=== PATIENT | female | born 1940 | race Caucasian/White ===

== ENCOUNTER 2020-08-26 08:11 | Outpatient (REF) | payer MEDICARE, SELFPAY ==
[2020-08-26 10:19] LABS: Hematocrit 42.7 % (37-47); Hemoglobin 13.4 g/dl (12.0-16.0); Mean Corpuscular HGB Conc 31.4 g/dl (31.0-35.0); Mean Corpuscular Volume 86.1 fL (80-98); Mean Platelet Volume 11.2 fL (9.4-12.3); Platelet Count 240 X10*3/uL (160-400); Red Blood Count 4.96 X10*6/uL (4.20-5.50); Red Cell Distribution Width 13.4 % (11.0-16.0); White Blood Count 9.6 X10*3/uL (4.8-10.8)
[2020-08-26 11:18] LABS: Alanine Aminotransferase 29 U/L (0-31); Albumin Level 3.6 g/dL (3.5-5.0); Alkaline Phosphatase 97 U/L (39-117); Anion Gap 13 (12-20); Aspartate Amino Transferase 25 U/L (5-31); Bilirubin Direct 0.3 mg/dL (0.0-0.5); Bilirubin Total 0.6 mg/dL (0.0-1.0); Blood Urea Nitrogen 23 mg/dL (9-16); Calcium 8.8 mg/dL (8.4-10.2); Carbon Dioxide 28 mmol/L (22-29); Chloride 104 mmol/L (96-108); Cholesterol 120 mg/dL; Estimated Glomerular Filt Rate > 60; Glucose Fasting 123 mg/dL (60-99); HDL Cholesterol 41 mg/dL; LDL Cholesterol Calculated 63 mg/dl; Potassium 4.6 mmol/l (3.3-5.1); Sodium 140 mmol/L (135-145); Total Protein 7.5 g/dL (6.5-8.0); Triglycerides 82 mg/dL
== END 2020-08-26 08:12 | disposition home or self-care (01) ==
LOC: HO.10HDL 08:11
DX: I10 Essential (primary) hypertension (principal); E78.5 Hyperlipidemia, unspecified; E55.9 Vitamin D deficiency, unspecified
CPT/HCPCS: 36415; 80053; 80061; 80076; 82248; 82306; 85027

== ENCOUNTER 2021-07-05 08:10 | Outpatient (REF) | payer MEDICARE, SELFPAY ==
[2021-07-05 09:12] LABS: MANUAL DIFF FLAG NO
[2021-07-05 09:16] LABS: Basophils Absolute Auto 0.1 X10*3/uL (0.0-0.2); Basophils Percent Auto 0.5 % (0-2); Eosinophils Absolute Auto 0.6 X10*3/uL (0.0-0.4); Eosinophils Percent Auto 5.6 % (0-4); Hematocrit 43.7 % (37-47); Hemoglobin 13.6 g/dl (12.0-16.0); Imm Gran Abs Auto 0.03 X10*3/uL (0.00-0.03); Imm Gran Pct Auto 0.3 % (0.0-0.4); Lymphocytes Absolute Auto 2.4 X10*3/uL (1.2-4.9); Lymphocytes Percent Auto 23.9 % (20-40); Mean Corpuscular HGB Conc 31.1 g/dl (31.0-35.0); Mean Corpuscular Hemoglobin 26.2 pg (27.0-33.0); Monocytes Percent Auto 9.5 % (2-11); Neutrophils Absolute Auto 6.1 X10*3/uL (2.0-8.3); Neutrophils Percent Auto 60.2 % (45-73); Platelet Count 264 X10*3/uL (160-400); White Blood Count 10.1 X10*3/uL (4.8-10.8)
[2021-07-05 09:36] LABS: Alanine Aminotransferase 26 U/L (0-31); Albumin Level 3.5 g/dL (3.5-5.0); Alkaline Phosphatase 106 U/L (39-117); Anion Gap 12 (12-20); Aspartate Amino Transferase 21 U/L (5-31); Bilirubin Total 0.8 mg/dL (0.0-1.0); Blood Urea Nitrogen 18 mg/dL (9-16); Calcium 9.3 mg/dL (8.4-10.2); Carbon Dioxide 27 mmol/L (22-29); Chloride 107 mmol/L (96-108); Cholesterol 132 mg/dL; Estimated Glomerular Filt Rate > 60; Glucose Fasting 135 mg/dL (60-99); HDL Cholesterol 42 mg/dL; LDL Cholesterol Calculated 76 mg/dl; Potassium 4.7 mmol/L (3.3-5.1); Sodium 141 mmol/L (135-145); Total Protein 7.4 g/dL (6.5-8.0); Triglycerides 70 mg/dL
[2021-07-05 09:57] LABS: Thyroid Stimulating Hormone 2.98 uIU/mL (0.32-4.0)
== END 2021-07-05 08:11 | disposition home or self-care (01) ==
LOC: HO.LAB 08:10
PROVIDERS: PCP Internal Medicine; Visit Provider Internal Medicine
DX: Z00.00 Encounter for general adult medical examination without abnormal findings (principal); E11.9 Type 2 diabetes mellitus without complications; E03.9 Hypothyroidism, unspecified
CPT/HCPCS: 36415; 80053; 80061; 84443; 85025

== ENCOUNTER 2022-07-11 09:33 | Outpatient (REF) | payer MEDICARE, SELFPAY ==
[2022-07-11 10:49] LABS: MANUAL DIFF FLAG NO
[2022-07-11 10:55] LABS: Basophils Absolute Auto 0.1 X10*3/uL (0.0-0.2); Basophils Percent Auto 0.7 % (0-2); Eosinophils Absolute Auto 0.6 X10*3/uL (0.0-0.4); Eosinophils Percent Auto 4.6 % (0-4); Hematocrit 44.5 % (37.0-47.0); Hemoglobin 13.8 g/dl (12.0-16.0); Imm Gran Abs Auto 0.06 X10*3/uL (0.00-0.03); Imm Gran Pct Auto 0.5 % (0.0-0.4); Lymphocytes Absolute Auto 2.7 X10*3/uL (1.2-4.9); Lymphocytes Percent Auto 21.5 % (20-40); Mean Corpuscular Hemoglobin 26.4 pg (27.0-33.0); Mean Corpuscular Volume 85.1 fL (80.0-98.0); Mean Platelet Volume 11.2 fL (9.4-12.3); Monocytes Absolute Auto 1.4 X10*3/uL (0.1-1.2); Neutrophils Absolute Auto 7.6 x10*3/uL (2.0-8.3); Neutrophils Percent Auto 61.7 % (45-73); Platelet Count 240 X10*3/uL (160-400); Red Blood Count 5.23 X10*6/uL (4.20-5.50); Red Cell Distribution Width 14.8 % (11.0-16.0); White Blood Count 12.3 X10*3/uL (4.8-10.8)
[2022-07-11 11:06] LABS: Alanine Aminotransferase 24 U/L (0-31); Albumin Level 3.7 g/dL (3.5-5.0); Alkaline Phosphatase 103 U/L (39-117); Anion Gap 18 (12-20); Aspartate Amino Transferase 26 U/L (5-31); Blood Urea Nitrogen 23 mg/dL (9-16); Calcium 9.1 mg/dL (8.4-10.2); Carbon Dioxide 24 mmol/L (22-29); Chloride 103 mmol/L (96-108); Cholesterol 124 mg/dL; Estimated Glomerular Filt Rate > 60; Glucose Fasting 160 mg/dL (60-99); HDL Cholesterol 38 mg/dL; LDL Cholesterol Calculated 65 mg/dl; Potassium 4.5 mmol/L (3.3-5.1); Sodium 140 mmol/L (135-145); Total Protein 7.7 g/dL (6.5-8.0); Triglycerides 106 mg/dL
[2022-07-11 11:29] LABS: Thyroid Stimulating Hormone 2.37 uIU/mL (0.32-4.0)
== END 2022-07-11 09:34 | disposition home or self-care (01) ==
LOC: HO.10HDL 09:33
PROVIDERS: Visit Provider Internal Medicine
DX: Z13.0 Encounter for screening for diseases of the blood and blood-forming organs and certain disorders involving the immune mechanism (principal); E78.5 Hyperlipidemia, unspecified; I10 Essential (primary) hypertension; E03.9 Hypothyroidism, unspecified
CPT/HCPCS: 36415; 80053; 80061; 84443; 85025

== ENCOUNTER → 2022-07-12 12:16 | Outpatient (REF) | payer MEDICARE, SELFPAY ==
--- NOTE | 2022-07-12 12:29 | ECG_ITS ---
Test Reason : z13.9 Blood Pressure : / mmHG Vent. Rate : 070 BPM Atrial Rate : 070 BPM P-R Int : 288 ms QRS Dur : 118 ms QT Int : 450 ms P-R-T Axes : 000 -39 021 degrees QTc Int : 486 ms Sinus rhythm with 1st degree A-V block Left axis deviation Incomplete right bundle branch block Abnormal ECG No previous ECGs available Referred By: Brian Pisano Electronically Signed By:LORENZO COWAN
== END ==
LOC: HO.CARD 12:16
PROVIDERS: PCP Internal Medicine; Visit Provider Internal Medicine
DX: R94.31 Abnormal electrocardiogram [ECG] [EKG] (principal)
CPT/HCPCS: 93005

== ENCOUNTER 2022-11-15 14:32 | Outpatient (REF) | payer MEDICARE, SELFPAY ==
--- NOTE | ~2022-11-15 | XR_ITS ---
EXAMINATION: XR chest 2V CLINICAL INFORMATION: Reason for Exam R07.9 - Chest pain, unspecified COMPARISON: Chest radiograph 11/04/2019 TECHNIQUE: 2 views of the chest FINDINGS: Background of increased reticular opacities which may reflect a degree of fibrosis or senescent change. No pneumothorax or pleural effusion. Borderline enlarged cardiac silhouette and is increased from prior. Upper abdominal surgical clips. XR/XR chest 2V IMPRESSION: * Background of increased reticular opacities which may reflect a degree of fibrosis or senescent change. * Cardiac silhouette is borderline enlarged, increased from prior.
== END 2022-11-15 14:33 | disposition home or self-care (01) ==
LOC: HO.XRAY 14:32
PROVIDERS: PCP Internal Medicine; Visit Provider Internal Medicine
DX: R07.9 Chest pain, unspecified (principal)
CPT/HCPCS: 71046

== ENCOUNTER → 2022-11-28 12:33 | Outpatient (BNVA) | payer MEDICARE, SELFPAY | PROVIDERS: PCP Internal Medicine; Referring Provider Internal Medicine; Visit Provider Internal Medicine Cardiovascular Disease | DX: R06.02 Shortness of breath (principal) | CPT/HCPCS: 99202 ==

== ENCOUNTER → 2022-12-06 13:23 | Outpatient (REF) | payer MEDICARE, SELFPAY ==
--- NOTE | 2022-12-06 13:26 | CA_ITS ---
Transthoracic Echocardiogram Patient (Last, First, Middle): Rosie Guerrero S Gender: Female Date of : 1940 Age: 82 Procedure Date: 12/06/2022 Procedure Type: Transthoracic Echocardiogram Location: OP Height: 157.48 cm Weight: 77.11 kg BSA: 1.78 m2 Heart Rate: 99 bpm BP: 160 / 90 mmHg Bottle Label Inspector: BOLA Referring MD: Arturo Tucker MD Symptoms: R06.02 - Shortness of breath Study Quality: Fair/Contrast ECG Rhythm: Atrial Fibrillation Conclusions: - The left ventricular systolic function is normal. The calculated ejection fraction is 63% by biplane method. - There is mild calcification of the aortic valve. - There is moderate posterior mitral annular calcification. Findings Procedure Information Contrast agent, definity, is being given per protocol without apparent complications. Left Ventricle Normal left ventricular cavity size. There is mildly increased left ventricular wall thickness. The left ventricular systolic function is normal. The calculated ejection fraction is 63% by biplane method. There is no evidence of regional wall motion abnormalities. Diastolic function is indeterminate on the basis of available data. There is severe septal asymmetric hypertrophy. Right Ventricle Normal right ventricular cavity size. There is mild to moderately decreased right ventricular systolic function. Atria Both atria are normal in size. Aortic Valve There is a normal trileaflet aortic valve. There is mild calcification of the aortic valve. There is no aortic valve stenosis. There is no aortic valve regurgitation. Mitral Valve There is moderate posterior mitral annular calcification. There is trace mitral valve regurgitation. There is no mitral valve stenosis. Pulmonic Valve There is trace pulmonic valve regurgitation. Tricuspid Valve Normal tricuspid valve structure. There is mild tricuspid valve regurgitation. Mild pulmonary hypertension is present. Great Vessels The asc aorta is normal in size. Small plaque is seen in the sino tubular ridge. Venous The inferior vena cava is normal in size and collapses less than 50% with inspiration. Pericardium/Pleural There is no evidence of pericardial effusion. Prior Study Comparison No significant change compared to prior study dated: 10/01/2003. Measurements 2D Linear Measurements IVSd: 1.39 0.6-0.9/0.6-1.0 cm LVIDd: 3.91 3.9-5.3/4.2-5.9 cm LVIDd Index: 2.20 2.4-3.2/2.2-3.1 cm/m2 LVIDs: 2.24 2.0-3.6 cm LVPWd: 1.18 0.7-1.1 cm Ao Root: 2.90 2.1-3.5 cm LA Diam: 4.10 2.7-3.8/3.0-4.0 cm LAIDs Index: 2.30 1.5-2.3 cm/m2 LV Mass: 220.81 67-162/88-224 g LV Mass Index: 124.05 43-95/49-115 g/m2 LVOT Diam: 1.90 3.0+(-)1.3 cm 2D Systolic Function EF 4C: 55.30 >55% EF 2C: 71.50 >55% EF BiP: 63.20 >55% Mitral Valve MV Pk E: 1.39 MV Decel Time: 106.00 E'Lateral: 8.45 E'Medial: 4.04 E/E' Med: 34.40 E/E' Lat: 16.40 PHT: 31.00 MVA PHT: 7.10 Decel Canadian: 13.10 Aortic Valve AoV Pk Woodrow: 1.18 AoV Mn Woodrow: 0.86 AoV VTI: 0.26 AoV Pk Grad: 6.00 Aov Mn Grad: 3.00 OSMAN Cont.VTI: 2.02 LVOT LVOT Pk Woodrow: 0.84 LVOT Mn Woodrow: 0.63 LVOT VTI: 0.19 LVOT Pk Grad: 3.00 LVOT Mn Grad: 2.00 LVOT Diam: 1.90 LVOT Area: 2.84 Diastolic Function MV Pk E: 1.39 E'Medial: 4.04 E/E' Med: 34.40 E' Laterial: 8.45 E/E' Lat: 16.40 Right Ventricle TAPSE (mm): 12.60 TVS' Woodrow: 7.98 Tricuspid Valve TR Pk Woodrow: 2.85 TR Pk Grad: 32.00 RA Press: 8.00 RVSP: 40.00 Great Vessels Aorta Ao Root-2D: 2.90 2.0-3.7 cm Sinus of Valsalva: 2.90 2.0-3.5 cm Ao Asc: 3.20 2.1-3.4 cm Pulmonary Valve PV Pk Woodrow: 0.98 Peak PV Grad: 4.00 Updated in Other Vendor System with Status of Final Harpreet Pichardo MD electronically signed on 12/08/2022 1:18:02 PM with status of Final
== END ==
LOC: HO.CARD 13:23
PROVIDERS: PCP Internal Medicine; Visit Provider Internal Medicine Cardiovascular Disease
DX: R06.02 Shortness of breath (principal)
CPT/HCPCS: 93306; Q9957

== ENCOUNTER → 2022-12-18 09:31 | Outpatient (REF) | payer MEDICARE, SELFPAY ==
--- NOTE | ~2022-12-18 | NM_ITS ---
Myocardial perfusion study Indication: Chest pain to evaluate for ischemia Technique: The patient was brought in for a Lexiscan perfusion study on 12/18/2022. Patient performed low-level exercise and was injected 0.4 mg of Lexiscan intravenously. Within a minute of injection, 30 mCi of sestamibi was given intravenously. Images were obtained using the SPECT gamma camera interlaced with the gating device. Images were obtained in supine position. Resting perfusion study was performed on 12/19/2022. Patient was administered 30 mCi of sestamibi intravenously at rest. Images were then obtained in supine position. Images obtained with and without CT attenuation. Total DLP 103 mGy-cm. Images were processed with the software and compared side to side in short axis, horizontal long axis and vertical long axis views. Findings: The stress perfusion study showed non attenuated images show normal uptake of radiotracer in all segments of LV myocardium with minimal thinning of the basal lateral wall of the LV myocardium. Attenuation corrected images show normal uptake of radiotracer in all segments of the basal lateral wall.. The gated study shows normal LV systolic function with visually estimated LVEF of greater than 55%. LV cavity is normal size. The gated study shows normal systolic wall thickening and contraction of segments. Resting study shows non attenuated images show mild thinning of the distal anterior and moderately reduced uptake in the lateral wall of. Gating at rest reveals normal systolic wall motion with ejection fraction at 65%. The findings are consistent with likely normal myocardial perfusion. NM/NM cardiolite stress test Impression: 1. Myocardial perfusion imaging study shows likely normal perfusion 2. Gated LVEF is 65% 3. Transient ischemic dilatation not present EKG is nondiagnostic for ischemia
--- NOTE | 2022-12-18 09:39 | CA_ITS ---
Acquisition Time: 2022-12-18 10:01:36 Total Exercise Time: 00:02:00 Test Indications: Dyspnea CP Medications: ATENOLOL ATORVASTATIN LISINOPRIL Protocol: LEXISCAN Max HR: 100 BPM 72% of Pred: 137 BPM Max BP: 130/082 mmHG Max Work Load: 1.0 METS Pharmacological stress test with Lexiscan injection, while sitting and kicking her legs, with mild sob, no chest discomfort, without arrythmia other than baseline atrial fibrillation ( which is new finding), with normotensive response to injection, with nondiagnostic EKG for ischemia. In recovery she was treated with Aminophylline 75mg IVP to reverse Lexiscan. Nuclear images pending. Test reviewed with Dr Tucker. Referred By: Arturo Tucker Overread By: ESTEFANI BONILLA
--- NOTE | 2022-12-18 12:16 | ECG_ITS ---
Test Reason : ?AFIB Blood Pressure : / mmHG Vent. Rate : 079 BPM Atrial Rate : 000 BPM P-R Int : 000 ms QRS Dur : 118 ms QT Int : 448 ms P-R-T Axes : 000 -33 -30 degrees QTc Int : 513 ms Atrial fibrillation Left axis deviation Incomplete right bundle branch block T wave abnormality, consider anterior ischemia Prolonged QT Abnormal ECG When compared with ECG of 12-JUL-2022 12:29, rhthm change from flutter to fibrillation T wave inversion more evident in Inferior leads T wave inversion now evident in Anterior leads Referred By: Caitlin Huber Electronically Signed By:ADAMA BHANDARI
== END ==
LOC: HO.CARD 09:31
PROVIDERS: Visit Provider Internal Medicine Cardiovascular Disease
DX: R07.9 Chest pain, unspecified (principal); R06.02 Shortness of breath; I48.91 Unspecified atrial fibrillation
CPT/HCPCS: 78452; 93005; 93017; A9500; J2785

== ENCOUNTER → 2022-12-22 13:31 | Outpatient (BNVA) | payer MEDICARE, SELFPAY | PROVIDERS: PCP Internal Medicine; Visit Provider Nurse Practitioner Family | DX: I48.91 Unspecified atrial fibrillation (principal); I10 Essential (primary) hypertension; R06.02 Shortness of breath | CPT/HCPCS: 93005; 99212 ==

== ENCOUNTER → 2022-12-29 10:37 | Outpatient (REF) | payer MEDICARE, SELFPAY ==
--- NOTE | 2022-12-29 10:41 | HM_ITS ---
Conclusion: 1. Patient was monitored for total period of 2 days and 23 hours 2. Baseline rhythm is atrial fibrillation with average heart of 67 beats per minute with good rate control 3. No significant pauses greater than 3 seconds noted 4. Very rare PVCs noted 5. No patient reported events MTDD
[2022-12-29 10:50] LABS: MANUAL DIFF FLAG NO
[2022-12-29 11:14] LABS: Basophils Absolute Auto 0.1 X10*3/uL (0.0-0.2); Basophils Percent Auto 0.7 % (0-2); Eosinophils Absolute Auto 0.3 X10*3/uL (0.0-0.4); Eosinophils Percent Auto 2.9 % (0-4); Hematocrit 49.4 % (37.0-47.0); Hemoglobin 15.2 g/dl (12.0-16.0); Imm Gran Abs Auto 0.05 X10*3/uL (0.00-0.03); Imm Gran Pct Auto 0.5 % (0.0-0.4); Lymphocytes Absolute Auto 1.6 X10*3/uL (1.2-4.9); Lymphocytes Percent Auto 16.2 % (20-40); Mean Corpuscular HGB Conc 30.8 g/dl (31.0-35.0); Mean Corpuscular Hemoglobin 26.8 pg (27.0-33.0); Mean Corpuscular Volume 87.1 fL (80.0-98.0); Mean Platelet Volume 11.4 fL (9.4-12.3); Monocytes Percent Auto 9.9 % (2-11); Neutrophils Percent Auto 69.8 % (45-73); Platelet Count 206 X10*3/uL (160-400); Red Blood Count 5.67 X10*6/uL (4.20-5.50); Red Cell Distribution Width 14.9 % (11.0-16.0)
[2022-12-29 11:59] LABS: Anion Gap 16 (12-20); Blood Urea Nitrogen 31 mg/dL (9-16); Calcium 9.3 mg/dL (8.4-10.2); Carbon Dioxide 23 mmol/L (22-29); Chloride 105 mmol/L (96-108); Estimated Glomerular Filt Rate 48; Glucose Random 211 mg/dL (60-115); Potassium 4.8 mmol/L (3.3-5.1); Sodium 139 mmol/L (135-145)
== END ==
LOC: HO.CARD 10:37
PROVIDERS: Visit Provider Nurse Practitioner Family
DX: I48.91 Unspecified atrial fibrillation (principal)
CPT/HCPCS: 36415; 80048; 85025; 93242

== ENCOUNTER 2023-01-10 11:54 | Outpatient (REF) | payer MEDICARE, SELFPAY ==
[2023-01-10 12:12] LABS: MANUAL DIFF FLAG NO
[2023-01-10 12:47] LABS: Basophils Absolute Auto 0.1 X10*3/uL (0.0-0.2); Basophils Percent Auto 0.5 % (0-2); Eosinophils Absolute Auto 0.3 X10*3/uL (0.0-0.4); Eosinophils Percent Auto 3.4 % (0-4); Hematocrit 46.7 % (37.0-47.0); Hemoglobin 14.8 g/dl (12.0-16.0); Imm Gran Abs Auto 0.03 X10*3/uL (0.00-0.03); Imm Gran Pct Auto 0.3 % (0.0-0.4); Lymphocytes Absolute Auto 1.4 X10*3/uL (1.2-4.9); Mean Corpuscular HGB Conc 31.7 g/dl (31.0-35.0); Mean Corpuscular Hemoglobin 26.8 pg (27.0-33.0); Mean Corpuscular Volume 84.6 fL (80.0-98.0); Mean Platelet Volume 11.3 fL (9.4-12.3); Monocytes Absolute Auto 0.9 X10*3/uL (0.1-1.2); Monocytes Percent Auto 8.7 % (2-11); Neutrophils Absolute Auto 7.1 x10*3/uL (2.0-8.3); Neutrophils Percent Auto 73.1 % (45-73); Platelet Count 189 X10*3/uL (160-400); Red Blood Count 5.52 X10*6/uL (4.20-5.50); Red Cell Distribution Width 14.6 % (11.0-16.0); White Blood Count 9.8 X10*3/uL (4.8-10.8)
[2023-01-10 12:58] LABS: Estimated Average Glucose 203 mg/dL; Hemoglobin A1c % 8.7 %
[2023-01-10 13:14] LABS: Alanine Aminotransferase 33 U/L (0-31); Albumin Level 3.4 g/dL (3.5-5.0); Alkaline Phosphatase 102 U/L (39-117); Anion Gap 12 (12-20); Aspartate Amino Transferase 29 U/L (5-31); Blood Urea Nitrogen 25 mg/dL (9-16); Calcium 9.2 mg/dL (8.4-10.2); Carbon Dioxide 25 mmol/L (22-29); Chloride 106 mmol/L (96-108); Cholesterol 117 mg/dL; Estimated Glomerular Filt Rate 59; Glucose Fasting 180 mg/dL (60-99); HDL Cholesterol 40 mg/dL; LDL Cholesterol Calculated 64 mg/dl; Potassium 4.7 mmol/L (3.3-5.1); Sodium 138 mmol/L (135-145); Total Protein 7.2 g/dL (6.5-8.0); Triglycerides 67 mg/dL
[2023-01-10 13:29] LABS: Thyroid Stimulating Hormone 2.56 uIU/mL (0.32-4.0)
== END 2023-01-10 11:55 | disposition home or self-care (01) ==
LOC: HO.LAB 11:54
PROVIDERS: PCP Internal Medicine; Visit Provider Internal Medicine
DX: Z00.00 Encounter for general adult medical examination without abnormal findings (principal); Z13.0 Encounter for screening for diseases of the blood and blood-forming organs and certain disorders involving the immune mechanism; Z13.220 Encounter for screening for lipoid disorders; R73.9 Hyperglycemia, unspecified
CPT/HCPCS: 36415; 80053; 80061; 83036; 84443; 85025

== ENCOUNTER 2023-01-12 07:46 | Outpatient (REF) | payer MEDICARE, SELFPAY ==
[2023-01-12 08:31] LABS: Glucose Fasting 162 mg/dL (60-99)
[2023-01-12 08:34] LABS: Estimated Average Glucose 203 mg/dL; Hemoglobin A1c % 8.7 %
== END 2023-01-12 07:47 | disposition home or self-care (01) ==
LOC: HO.LAB 07:46
PROVIDERS: PCP Internal Medicine; Visit Provider Internal Medicine
DX: R73.9 Hyperglycemia, unspecified (principal)
CPT/HCPCS: 36415; 82947; 83036

== ENCOUNTER → 2023-03-22 13:03 | Outpatient (BNVA) | payer MEDICARE, SELFPAY | PROVIDERS: PCP Internal Medicine; Referring Provider Internal Medicine; Visit Provider Internal Medicine Cardiovascular Disease | DX: I48.19 Other persistent atrial fibrillation (principal) | CPT/HCPCS: 99212 ==

== ENCOUNTER 2023-04-09 14:36 | Outpatient (REF) | payer MEDICARE, SELFPAY ==
[2023-04-09 16:12] LABS: Anion Gap 13 (12-20); Blood Urea Nitrogen 22 mg/dL (9-16); Calcium 9.8 mg/dL (8.4-10.2); Carbon Dioxide 25 mmol/L (22-29); Chloride 106 mmol/L (96-108); Estimated Glomerular Filt Rate 53; Glucose Random 174 mg/dL (60-115); Potassium 4.8 mmol/L (3.3-5.1); Sodium 139 mmol/L (135-145)
[2023-04-09 16:21] LABS: B Type Natriuretic Peptide 1234 pg/mL (<100)
== END 2023-04-09 14:37 | disposition home or self-care (01) ==
LOC: HO.LAB 14:36
PROVIDERS: Internal Medicine Cardiovascular Disease; PCP Internal Medicine; Visit Provider Internal Medicine
DX: I10 Essential (primary) hypertension (principal); R06.02 Shortness of breath; I48.19 Other persistent atrial fibrillation
CPT/HCPCS: 36415; 80048; 83880

== ENCOUNTER 2023-04-11 11:52 | Day surgery (SDC) | payer MEDICARE, SELFPAY ==
--- NOTE | 2023-04-10 11:49 | HO.ANESPROP2 ---
Documented by User: Bethany Molina NP 04/10/23 11:51 HPI - Anesthesia Eval Consult details Narrative: 82YO F for Cardioversion Eliquis for afib PMFSH Active Problems Active Problems: All Active Problems (Updated 03/22/23 @ 13:42 by Arturo Tucker MD) Persistent atrial fibrillation (Acute) SOB (shortness of breath) on exertion (Acute) Chest pain (Acute) Hyperlipidemia (Acute) Obesity (Acute) Hypertension (Acute) Past Medical History Medical History (Updated 03/22/23 @ 13:42 by Arturo Tucker MD) Hypertension New onset a-fib Obesity Family History Family History Mother No problems noted. Father No problems noted. Surgical History Surgical History (Updated 04/11/23 @ 12:27 by Maricruz Arrington RN) History of nephrectomy, left Hx of cholecystectomy Social History Social History Housing: House Alcohol intake: never Patient Tobacco Use Status: Never used Tobacco e-Cigarette/Vaping Use: Never Used Second Hand Smoke Exposure: No service: No Current occupational status: retired Cognitive needs: No Hearing needs: Yes Vision needs: No Meds Allergies Allergy/AdvReac Type Severity Reaction Status Date / Time cephalexin Allergy Intermediate Rash Verified 04/11/23 12:28 Exam Exam Date and Time: April 10, 2023 1149 Pertinent Lab Results Pertinent Lab Results: Laboratory Tests 01/10/23 04/09/23 12:11 14:58 WBC 9.8 Hgb 14.8 Hct 46.7 Plt Count 189 Sodium 139 Potassium 4.8 Chloride 106 Carbon Dioxide 25 BUN 22 H Creatinine 1.00 Narrative Narrative: NM cardiolite stress test 12/2022 Impression: ? 1.? Myocardial perfusion imaging study shows likely normal perfusion 2.? Gated LVEF is 65% 3. Transient ischemic dilatation not present ? EKG is nondiagnostic for ischemia ECHO 11/2022 Conclusions: - The left ventricular systolic function is normal.? The ? calculated ejection fraction is 63% by biplane method. ? - There is mild calcification of the aortic valve. ? - There is moderate posterior mitral annular calcification.? ? ? Assessment and Plan Assessment Anesthesia Assessment: Chart Reviewed Documented by User: Yeimi Carnes MD 04/11/23 13:02 PMFSH Past Medical History Medical History (Updated 03/22/23 @ 13:42 by Arturo Tucker MD) Hypertension New onset a-fib Obesity Family History Family History Mother No problems noted. Father No problems noted. Family history of problems with anesthesia: No Surgical History Surgical History (Updated 04/11/23 @ 12:27 by Maricruz Arrington RN) History of nephrectomy, left Hx of cholecystectomy History of Problems with Anesthesia: No Social History Social History Housing: House Alcohol intake: never Patient Tobacco Use Status: Never used Tobacco e-Cigarette/Vaping Use: Never Used Second Hand Smoke Exposure: No service: No Current occupational status: retired Cognitive needs: No Hearing needs: Yes Vision needs: No Meds Allergies Allergy/AdvReac Type Severity Reaction Status Date / Time cephalexin Allergy Intermediate Rash Verified 04/11/23 12:28 Exam Airway Mallampati Class: II TM Dist: >3cm Neck ROM: Full Denture: Upper Partial: Lower Heart: rrr Lungs: cta Assessment and Plan Assessment Anesthesia Assessment: Anesthesia Plan Discussed Final Anesthetic Review Family History of Problems with Anesthesia: No History of Problems with Anesthesia: No NPO: Yes ASA Class: III Final Preanesthetic Review: No Changes in Pt Med Stat, Meds/Allgs Chart Reviewed and Consent Obtained/Reviewed Patient Risk: Intermediate Procedure Risk: Intermediate Anesthetic Plan Anesthetic Plan: MAC: Disposition: Standard PACU
[2023-04-11] VITALS (7 sets, daily range): BP systolic 119–177; BP diastolic 46–76; PULSE 45–70; RESP 16–21; TEMP 36.2–36.4; O2SAT 94–100; BMI 30.5
--- NOTE | 2023-04-11 12:27 | MHC.SHP ---
Pre-Procedural Eval Section A Date of Service: 04/11/23 The patient is an INPATIENT: No Changes since office visit: Yes Cold of Flu in the past 2 weeks, Yes New Medical Problems, Yes Changes in Medication and Yes Patient answered all questions The History & Physical has been completed within 30 days and I have reviewed it.: Yes Section B Chief Complaint: agib Allergies: Allergies Allergy/AdvReac Type Severity Reaction Status Date / Time cephalexin Allergy Intermediate Rash Verified 04/09/23 14:10 Plan I have reviewed the history and physical and performed a pertinent physical examination on my patient. No changes have occurred unless specified. Time Spent With Patient Time: Total time managing care of this patient today ____ minutes.
[2023-04-11] MEDS: Lactated Ringers 1,000 ML 50 ML IVCONT (12:56)
--- NOTE | 2023-04-11 13:34 | ECG_ITS ---
Test Reason : post op Blood Pressure : / mmHG Vent. Rate : 047 BPM Atrial Rate : 047 BPM P-R Int : 280 ms QRS Dur : 128 ms QT Int : 572 ms P-R-T Axes : 054 -39 -08 degrees QTc Int : 506 ms Sinus bradycardia with sinus arrhythmia with 1st degree A-V block Left axis deviation Right bundle branch block T wave abnormality, consider lateral ischemia Abnormal ECG When compared with ECG of 18-DEC-2022 10:42, Sinus rhythm has replaced Atrial fibrillation Vent. rate has decreased BY 32 BPM Referred By: Arturo Tucker Electronically Signed By:Timothy Girard
--- NOTE | 2023-04-11 13:37 | HO.CARDIVERS ---
Cardioversion Procedure Note Cardioversion Date of Procedure: Today Ordering Provider: Myself Performing Provider: Myself Indication for Procedure: Persistent symptomatic atrial fibrillation with now Pre-Op Diagnosis: Same Post-Op Diagnosis: Paroxysmal atrial fibrillation Performed with Transesophageal Echo: No Consent: Verbal and Written consent was obtained from the patient before starting and after confirming oral anticoagulation use. The patient was made aware of the risk of synchronized cardioversion including benefits and alternatives Procedure: After consent obtained, cardioversion pads were attached in anteroposterior configuration and the patient was sedated by the anesthesia team. Once adequate sedation achieved, patient was delivered 200 joules of biphasic synchronized energy in anteroposterior configuration Complications: None Impression: Successful conversion to sinus rhythm Recommendations: 1. 12 lead EKG 2. Continue amiodarone 200 mg daily and oral anticoagulation therapy 3. Reduce atenolol to 25 mg daily and continue Lasix therapy 4. Follow up in the clinic after Holter monitor
== END 2023-04-11 14:52 | disposition home or self-care (01) ==
PROVIDERS: PCP Internal Medicine; Visit Provider Internal Medicine Cardiovascular Disease
PROC: 5A2204Z Restoration of Cardiac Rhythm, Single (ICD-10-PCS; principal; 2023-04-11 13:30)
DX: I48.19 Other persistent atrial fibrillation (principal); Z79.01 Long term (current) use of anticoagulants; R53.83 Other fatigue; I10 Essential (primary) hypertension; E66.9 Obesity, unspecified; Z68.31 Body mass index [BMI] 31.0-31.9, adult; Z79.899 Other long term (current) drug therapy; Z88.8 Allergy status to other drugs, medicaments and biological substances
CPT/HCPCS: 92960; 93005

== ENCOUNTER → 2023-04-18 13:03 | Outpatient (REF) | payer MEDICARE, SELFPAY ==
--- NOTE | 2023-04-18 13:06 | HM_ITS ---
Conclusion: 1. Patient was monitored for total period of 2 days and 15 hours 2. Baseline was sinus rhythm with average heart of 57 beats per minute with frequent sinus bradycardia, 75% of the time 3. No significant pauses noted 4. Occasional PACs noted without evidence of atrial fibrillation 5. No patient reported events MTDD
== END ==
LOC: HO.CARD 13:03
PROVIDERS: Visit Provider Internal Medicine Cardiovascular Disease
DX: I48.19 Other persistent atrial fibrillation (principal)
CPT/HCPCS: 93242

== ENCOUNTER → 2023-04-18 13:06 | Outpatient (BNV) | payer MEDICARE, SELFPAY | PROVIDERS: Visit Provider Internal Medicine Cardiovascular Disease | DX: R00.1 Bradycardia, unspecified (principal) | CPT/HCPCS: 93244 ==

== ENCOUNTER 2023-05-07 15:13 | Outpatient (AMB) | payer MEDICARE, SELFPAY ==
--- NOTE | 2023-05-07 15:27 | MHC.OFFVIS ---
Intake Vital Signs 05/07/23 15:28 Height 5 ft 3 in Weight 158 lb 11.725 oz BMI 28.1 BP 115/70 Blood Pressure Location Lt brachial Position Sitting Pulse 101 H Intake Visit Reasons: follow-up with ekg Intake Note: follow up with ekg Allergies cephalexin Allergy (Intermediate, Verified 05/07/23 15:34) Rash Medication List - Last Reconciled 05/07/23 by Arturo Tucker MD amiodarone 200 mg PO Q24H apixaban (Eliquis) 5 mg PO BID atorvastatin 20 mg PO DAILY cholecalciferol (vitamin D3) 50 mcg PO DAILY furosemide 40 mg PO DAILY 90 days lisinopril 40 mg PO DAILY HPI HPI Comments History of Present Illness Details Rosie comes for follow-up. She is accompanied by her daughter. Post cardioversion Holter monitor shown significant bradycardia and we had discontinue atenolol therapy. She comes today and noted to be in atrial flutter/tachycardia with 2 is to 1 conduction. However since cardioversion she is feeling better. Exertional fatigue and shortness of breath is improved. She has not had any bleeding issues since some blood notice in urination due to UTI. She has started using apixaban again for the last 7 days [facility] Medical History (Updated 05/08/23 @ 12:32 by Arturo Tucker MD) Hypertension New onset a-fib Obesity Persistent atrial fibrillation Surgical History History of nephrectomy, left Hx of cholecystectomy Family History Mother No problems noted. Father No problems noted. Social History Housing: House Alcohol intake: never Patient Tobacco Use Status: Never used Tobacco e-Cigarette/Vaping Use: Never Used Second Hand Smoke Exposure: No service: No Current occupational status: retired Cognitive needs: No Hearing needs: Yes Vision needs: No Review of Systems ENT Reports dizziness Card Denies chest pain, Denies chest pain at rest, Denies chest pain with activity, Denies rapid heart rate, Denies pedal edema, Denies edema, Denies leg edema, Denies lightheadedness, Denies palpitations, Denies dyspnea, Denies dyspnea on exertion and Denies orthopnea Resp Denies cough, Denies dyspnea and Denies dyspnea on exertion GI Denies hematochezia and Denies change in stool character Musc Denies abnormal gait, Reports limited range of motion, Reports muscle cramps, Denies muscle weakness, Denies numbness, Denies radiating pain into limb, Denies stiffness and Denies tingling Neuro Denies abnormal gait, Reports dizziness, Denies numbness and Denies tingling Endo Denies palpitations Physical Exam Vital Signs: Last Vital Signs Pulse 101 H 05/07/23 15:28 BP 115/70 05/07/23 15:28 BMI result Body Mass Index 28.1 Const General: cooperative, healthy appearing, comfortable and no acute distress Orientation/consciousness: patient oriented x3 Neck Neck: Yes normal visual inspection Resp Effort & Inspection: normal respiratory effort Auscultation: clear to auscultation bilaterally, no crackles, no rales, no rhonchi and no wheezes Cardio Jugular venous distension: no JVD Rate: tachycardic Rhythm: regular rhythm Heart sounds: S1 normal heart sound present, S2 normal heart sound present, no gallops, no murmurs and no rubs Peripheral pulses: Peripheral pulses 2+ throughout GI Inspection: Yes normal to inspection Neuro General: patient oriented x3 Extrem General: No clubbing, No cyanosis, Yes pedal edema and Yes other (Venous insufficiency with varicose veins) Psych Appearance: grossly normal Mental Status: mental status grossly normal Speech and movement: Normal speech and movement present Office Procedures EKG Details: EKG shows atrial tachycardia/atypical atrial flutter with 2 is to 1 conduction with right bundle-branch block 72865-[id number], Complete Assessment & Plan Assessment & Plan (1) Atrial flutter: Code(s): I48.92 - Unspecified atrial flutter Plan: More organized atrial rhythm with now atrial tachycardia/flutter on amiodarone therapy with improvement in symptoms with cardioversion with improved shortness of breath and fatigue. However she has developed recurrent atrial arrhythmias off atenolol therapy. Advised to restart atenolol 25 mg daily. Continue full oral anticoagulation Eliquis. She has been on it for about 6-7 days. When she is been on it for about 4 weeks, will reschedule synchronized cardioversion. Discussed with her again the need for synchronized cardioversion including risk, benefits, alternatives. 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 This was discussed with them in details. They understand and agree. For now continue amiodarone 200 mg daily along with Eliquis 5 mg b.i.d.. Continue aggressive blood pressure control. Schedule cardioversion in 3 weeks time Will follow-up after that Coding Level of Care Code Est Pt Level 4 (54437) Diagnoses Atrial flutter I48.92 CPT Codes EKG - CPT: 74417-[id number], Complete ([id number])
[2023-05-07 15:28] VITALS: BP 115/70; PULSE 101; BMI 28.1
== END 2023-05-07 15:59 | disposition home or self-care (01) ==
PROVIDERS: PCP Internal Medicine; Visit Provider Internal Medicine Cardiovascular Disease
DX: I48.92 Unspecified atrial flutter (principal)
CPT/HCPCS: 93010; 99214

== ENCOUNTER → 2023-05-07 15:13 | Outpatient (BNVA) | payer MEDICARE, SELFPAY | PROVIDERS: PCP Internal Medicine; Visit Provider Internal Medicine Cardiovascular Disease | DX: I48.92 Unspecified atrial flutter (principal); Z79.01 Long term (current) use of anticoagulants; Z51.81 Encounter for therapeutic drug level monitoring | CPT/HCPCS: 93005; 99212 ==

== ENCOUNTER 2023-05-31 08:16 | Day surgery (SDC) | payer MEDICARE, SELFPAY ==
--- NOTE | 2023-05-30 08:18 | P.CONAN_ITS ---
Documented by User: Bethany Molina NP 05/30/23 08:23 HPI - Anesthesia Eval Consult details Narrative: 82yo F for Cardioversion s/p cardioversion 03/2023 with MAC Eliquis for afib PMFSH Active Problems Active Problems: All Active Problems (Updated 05/08/23 @ 12:32 by Arturo Tucker MD) Atrial flutter (Acute) Hematuria (Acute) Hyperlipidemia (Acute) Chest pain (Acute) SOB (shortness of breath) on exertion (Acute) Obesity (Acute) Hypertension (Acute) Past Medical History Medical History (Updated 05/08/23 @ 12:32 by Arturo Tucker MD) Hypertension New onset a-fib Obesity Persistent atrial fibrillation Family History Family History Mother No problems noted. Father No problems noted. Family history of problems with anesthesia: No Surgical History Surgical History History of nephrectomy, left Hx of cholecystectomy History of Problems with Anesthesia: No Social History Social History Housing: House Alcohol intake: never Patient Tobacco Use Status: Never used Tobacco e-Cigarette/Vaping Use: Never Used Second Hand Smoke Exposure: No service: No Current occupational status: retired Cognitive needs: No Hearing needs: Yes Vision needs: No Meds Allergies Allergy/AdvReac Type Severity Reaction Status Date / Time cephalexin Allergy Intermediate Rash Verified 05/07/23 15:34 Exam Exam Date and Time: May 30, 2023 0818 Pertinent Lab Results Pertinent Lab Results: Laboratory Tests 01/10/23 04/09/23 12:11 14:58 WBC 9.8 Hgb 14.8 Hct 46.7 Plt Count 189 Sodium 139 Potassium 4.8 Chloride 106 Carbon Dioxide 25 BUN 22 H Creatinine 1.00 Narrative Narrative: EKG 05/2023 atrial tachycardia/atypical atrial flutter with 2 is to 1 conduction with right bundle-branch block Assessment and Plan Assessment Anesthesia Assessment: Chart Reviewed Final Anesthetic Review Family History of Problems with Anesthesia: No History of Problems with Anesthesia: No Documented by User: Cameron Tarango MD 05/31/23 08:13 [facility] Past Medical History Medical History (Updated 05/08/23 @ 12:32 by Arturo Tucker MD) Hypertension New onset a-fib Obesity Persistent atrial fibrillation Family History Family History Mother No problems noted. Father No problems noted. Surgical History Surgical History History of nephrectomy, left Hx of cholecystectomy Social History Social History Housing: House Alcohol intake: never Patient Tobacco Use Status: Never used Tobacco e-Cigarette/Vaping Use: Never Used Second Hand Smoke Exposure: No service: No Current occupational status: retired Cognitive needs: No Hearing needs: Yes Vision needs: No Meds Allergies Allergy/AdvReac Type Severity Reaction Status Date / Time cephalexin Allergy Intermediate Rash Verified 05/07/23 15:34 Exam Airway Mallampati Class: II TM Dist: <=3cm Heart: irreg Lungs: cta Assessment and Plan Final Anesthetic Review NPO: Yes ASA Class: III Final Preanesthetic Review: No Changes in Pt Med Stat, Meds/Allgs Chart Reviewed, Consent Obtained/Reviewed and Anes Risks/Benef Reviewed Patient Risk: Intermediate Procedure Risk: Intermediate Anesthetic Plan Anesthetic Plan: MAC: and Agree w/ Assess. and Plan
[2023-05-31] VITALS (9 sets, daily range): BP systolic 90–155; BP diastolic 27–71; PULSE 50–59; RESP 16; TEMP 36.1–36.4; O2SAT 87–100; BMI 28.1
--- NOTE | 2023-05-31 09:00 | MHC.SHP ---
Pre-Procedural Eval Section A Date of Service: 05/31/23 The patient is an INPATIENT: No Changes since office visit: Yes Patient answered all questions; No Cold of Flu in the past 2 weeks, No New Medical Problems and No Changes in Medication The History & Physical has been completed within 30 days and I have reviewed it.: Yes Section B Chief Complaint: Other persistent atrial fibrillation Allergies: Allergies Allergy/AdvReac Type Severity Reaction Status Date / Time cephalexin Allergy Intermediate Rash Verified 05/07/23 15:34 Plan I have reviewed the history and physical and performed a pertinent physical examination on my patient. No changes have occurred unless specified. Time Spent With Patient Time: Total time managing care of this patient today ____ minutes.
[2023-05-31] MEDS: Lactated Ringers 1,000 ML 100 ML IVCONT (09:34)
--- NOTE | 2023-05-31 10:18 | ECG_ITS ---
Test Reason : s/p cardioversion Blood Pressure : / mmHG Vent. Rate : 053 BPM Atrial Rate : 053 BPM P-R Int : 256 ms QRS Dur : 134 ms QT Int : 566 ms P-R-T Axes : 038 -16 -33 degrees QTc Int : 531 ms Sinus bradycardia with 1st degree A-V block Right bundle branch block T wave abnormality, consider lateral ischemia Abnormal ECG When compared with ECG of 11-APR-2023 13:40, No significant change was found Referred By: Arturo Tucker Electronically Signed By:LORENZO COWAN
--- NOTE | 2023-05-31 10:18 | HO.CARDIVERS ---
Cardioversion Procedure Note Cardioversion Date of Procedure: Today Ordering Provider: Myself Performing Provider: Myself Indication for Procedure: Persistent recurrent symptomatic atrial fibrillation Pre-Op Diagnosis: Same Post-Op Diagnosis: Normal sinus rhythm Performed with Transesophageal Echo: No History: See my office note Consent: Verbal and Written consent was obtained from the patient before starting and after confirming oral anticoagulation use and medication use. The patient was made aware of the risk of synchronized cardioversion including benefits and alternatives Procedure: After consent obtained, cardioversion pads were attached in AP configuration and the patient was sedated by the anesthesia team. Once adequate sedation achieved, patient was delivered 200 joules of biphasic synchronized energy in anteroposterior configuration. Patient successfully converted to sinus rhythm Complications: None Impression: Successful conversion to sinus rhythm Recommendations: 1. 12 lead EKG 2. Continue amiodarone as well as atenolol and oral anticoagulation use 3. Follow-up in office after Holter monitor
== END 2023-05-31 12:13 | disposition home or self-care (01) ==
PROVIDERS: PCP Internal Medicine; Visit Provider Internal Medicine Cardiovascular Disease
PROC: 5A2204Z Restoration of Cardiac Rhythm, Single (ICD-10-PCS; principal; 2023-05-31 10:00)
DX: I48.19 Other persistent atrial fibrillation (principal); I10 Essential (primary) hypertension; Z79.01 Long term (current) use of anticoagulants; Z88.1 Allergy status to other antibiotic agents; Z79.899 Other long term (current) drug therapy
CPT/HCPCS: 92960; 93005

== ENCOUNTER → 2023-05-31 08:16 | Outpatient (BNV) | payer MEDICARE, SELFPAY | PROVIDERS: PCP Internal Medicine; Visit Provider Internal Medicine Cardiovascular Disease | DX: I48.19 Other persistent atrial fibrillation (principal) | CPT/HCPCS: 92960 ==

== ENCOUNTER 2023-06-12 15:17 | Outpatient (AMB) | payer MEDICARE, SELFPAY ==
[2023-06-12 15:31] VITALS: BP 118/74; PULSE 57; BMI 28.1
--- NOTE | 2023-06-12 15:31 | A.OFFVIS_ITS ---
Intake Vital Signs 06/12/23 15:31 Height 5 ft 3 in Weight 158 lb 11.725 oz BMI 28.1 BP 118/74 Blood Pressure Location Lt brachial Position Sitting Pulse 57 Intake Visit Reasons: 2 wk fu after cardioversion Intake Note: 2 week follow-up after Cardioversion with ekg Allergies cephalexin Allergy (Intermediate, Verified 05/07/23 15:34) Rash Medication List - Last Reconciled 06/12/23 by Arturo Tucker MD amiodarone 200 mg PO Q24H apixaban (Eliquis) 5 mg PO BID atenolol 25 mg PO DAILY atorvastatin 20 mg PO DAILY cholecalciferol (vitamin D3) 50 mcg PO DAILY furosemide 40 mg PO DAILY 90 days lisinopril 40 mg PO DAILY HPI HPI Comments History of Present Illness Details Rosie comes for follow-up. Since the 2nd cardioversion she has been doing well. She is taking all medications. She notices remarkable improvement in her exercise capacity. She has improved energy as well as improved functionality. She is quite happy. She denies any orthopnea, PND. No bleeding issues or neurologic events. Denies any lightheadedness, syncope. [facility] Medical History (Updated 06/12/23 @ 16:02 by Arturo Tucker MD) Atrial flutter Hypertension New onset a-fib Obesity Paroxysmal atrial fibrillation Persistent atrial fibrillation Surgical History History of nephrectomy, left Hx of cholecystectomy Family History Mother No problems noted. Father No problems noted. Social History Housing: House Alcohol intake: never Patient Tobacco Use Status: Never used Tobacco e-Cigarette/Vaping Use: Never Used Second Hand Smoke Exposure: No service: No Current occupational status: retired Cognitive needs: No Hearing needs: Yes Vision needs: No Review of Systems Const Denies chills, Denies fatigue, Denies fever(s), Denies frequent falls, Denies weakness, Denies weight gain and Denies weight loss ENT Denies dizziness Card Denies chest pain, Denies leg edema, Denies lightheadedness, Denies palpitations, Denies dyspnea, Denies dyspnea on exertion, Denies orthopnea and Denies other (loss of consciousness) Resp Denies cough, Denies dyspnea and Denies dyspnea on exertion GI Denies hematochezia and Denies change in stool character Musc Denies abnormal gait, Denies muscle weakness, Denies numbness, Denies radiating pain into limb and Denies tingling Neuro Denies abnormal gait, Denies dizziness, Denies frequent falls, Denies numbness, Denies tingling and Denies weakness Endo Denies fatigue and Denies palpitations Physical Exam Vital Signs: Last Vital Signs Pulse 57 06/12/23 15:31 BP 118/74 06/12/23 15:31 BMI result Body Mass Index 28.1 Const General: cooperative, healthy appearing, comfortable and no acute distress Orientation/consciousness: patient oriented x3 Neck Neck: Yes normal visual inspection Resp Effort & Inspection: normal respiratory effort Auscultation: clear to auscultation bilaterally, no crackles, no rales, no rhonchi and no wheezes Cardio Jugular venous distension: no JVD Rate: tachycardic Rhythm: regular rhythm Heart sounds: S1 normal heart sound present, S2 normal heart sound present, no gallops, no murmurs and no rubs Peripheral pulses: Peripheral pulses 2+ throughout GI Inspection: Yes normal to inspection Neuro General: patient oriented x3 Extrem General: No clubbing, No cyanosis, Yes pedal edema and Yes other (Venous insufficiency with varicose veins) Psych Appearance: grossly normal Mental Status: mental status grossly normal Speech and movement: Normal speech and movement present Office Procedures EKG Details: EKG shows sinus bradycardia with bifascicular block with right bundle and left anterior fascicular block with lateral T-wave changes [id number], Complete Assessment & Plan Assessment & Plan (1) Paroxysmal atrial fibrillation: Code(s): I48.0 - Paroxysmal atrial fibrillation Plan: paroxysmal atrial fibrillation status post 2nd cardioversion. Maintaining rhythm on amiodarone and atenolol. Slight bradycardia noted, patient tolerating well. However she has noticed significant improvement in her functional capacity since maintaining rhythm. Will pursue aggressively rhythm control approach. Continue amiodarone therapy. Advised to obtain a smart phone based EKG device to monitor EKG on a daily basis. Advised to call me with recurrent symptoms. Continue full oral anticoagulation, currently on Eliquis 5 mg b.i.d.. Semi annual renal function test to be pursued. Avoidance of stimulants was discussed. (2) Hypertension: Code(s): I10 - Essential (primary) hypertension Plan: Hypertension which is currently well optimized advised to monitor blood pressure at home maintain a log. Goal blood pressure less than 130/84. Low- salt diet was advised. Will follow up in the clinic in 3 months time, sooner p.r.n.. Thank you for allowing me to partake in her care Coding Level of Care Code Est Pt Level 4 (32958) Diagnoses Paroxysmal atrial fibrillation I48.0 Hypertension I10 CPT Codes EKG - CPT: 02072-[id number], Complete ([id number])
== END 2023-06-12 16:04 | disposition home or self-care (01) ==
PROVIDERS: PCP Internal Medicine; Referring Provider Internal Medicine; Visit Provider Internal Medicine Cardiovascular Disease
DX: I48.0 Paroxysmal atrial fibrillation (principal); I10 Essential (primary) hypertension
CPT/HCPCS: 93010; 99214

== ENCOUNTER → 2023-06-12 15:17 | Outpatient (BNVA) | payer MEDICARE, SELFPAY | PROVIDERS: PCP Internal Medicine; Referring Provider Internal Medicine; Visit Provider Internal Medicine Cardiovascular Disease | DX: I48.0 Paroxysmal atrial fibrillation (principal); I10 Essential (primary) hypertension; Z79.01 Long term (current) use of anticoagulants; Z79.899 Other long term (current) drug therapy; Z98.890 Other specified postprocedural states | CPT/HCPCS: 93005; 99212 ==

== ENCOUNTER 2023-07-10 14:04 | Outpatient (AMB) | payer MEDICARE, SELFPAY ==
[2023-07-10 14:05] VITALS: BP 138/66; PULSE 65; O2SAT 91; BMI 27.8
--- NOTE | 2023-07-10 14:05 | A.OFFPC_ITS ---
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 Accompanied by: Self / Same As Patient Allergies cephalexin Allergy (Intermediate, Verified 07/10/23 14:05) Rash Tobacco use date assessed: 04/09/23 Fall risk assessment: No Falls in past year Last assessed Fall Risk: 07/10/23 Dental Screening Dental Screen Date: 07/10/23 Did you have a dental visit in the last 12 months?: No Did you have a dental problem in the last 6 months where you did not have access to dental care?: No Was dental information given to patient?: Patient has dentist HPI 3mth f/u HPI Details HTN afib and hyperlip; doing well; compliant [facility] Medical History Paroxysmal atrial fibrillation Atrial flutter Persistent atrial fibrillation New onset a-fib Obesity Hypertension Surgical History History of nephrectomy, left Hx of cholecystectomy Family History Mother No problems noted. Father No problems noted. Social History Housing: House Alcohol intake: never Patient Tobacco Use Status: Never used Tobacco e-Cigarette/Vaping Use: Never Used Second Hand Smoke Exposure: No service: No Current occupational status: retired Cognitive needs: No Hearing needs: Yes Vision needs: No Questionnaire PHQ-9 Over the last 2 weeks, how often have you been bothered by any of the following problems? 1. Little interest or pleasure in doing things: not at all 2. Feeling down, depressed, or hopeless: not at all 3. Trouble falling or staying asleep, or sleeping too much: not at all 4. Feeling tired or having little energy: not at all 5. Poor appetite or overeating: not at all 6. Feeling bad about yourself - or that you are a failure or have let yourself or your family down: not at all 7. Trouble concentrating on things, such as reading the newspaper or watching television: not at all 8. Moving or speaking so slowly that other people could have noticed. Or the opposite - being so fidgety or restless that you have been moving around a lot more than usual: not at all 9. Thoughts that you would be better off or of hurting yourself in some way: not at all Total score: 0 Source: Developed by Drs. Daniel Dickerson, Catrachita Brosusard, Bigg Sotelo and colleagues, with an educational forrest from [employer]. Thrive Questionnaire Date Thrive assessed: 01/03/23 Currently or been in a relationship where the following occur: no concerns reported AUDIT C Alcohol Use Questionnaire (AUDIT-C) 1. How often do you have a drink containing alcohol?: Never Total Score: 0 Score Reviewed/Action Taken: Yes DAKOTA-7 AMB Questionnaire DAKOTA-7 Date DAKOTA - 7 assessed: 01/03/23 Source: Developed by Drs. Daniel Dickerson, Catrachita Broussard, Bigg Sotelo and colleagues, with an educational forrest from [employer]. Review of Systems Const Denies chills, Denies headache(s) and Denies weight loss ENT Denies headache(s) Card Denies chest pain, Denies syncope, Denies irregular heart rhythm and Denies dyspnea Resp Denies chest congestion, Denies cough and Denies dyspnea GI Denies abdominal pain, Denies change in stool character, Denies nausea and Denies vomiting Musc Denies deformity and Denies joint swelling Neuro Denies syncope and Denies headache(s) Physical exam (Primary Care) Vital Signs: Last Vital Signs Pulse 65 07/10/23 14:05 BP 138/66 07/10/23 14:05 Pulse Ox 91 L 07/10/23 14:05 Oxygen Delivery Method Room Air 07/10/23 14:05 BMI result Body Mass Index 27.8 Tobacco/Smoking Status: Tobacco use Status Tobacco use date assessed 04/09/23 07/10/23 14:11 Patient Tobacco Use Status Never used Tobacco 07/10/23 14:11 e-Cigarette/Vaping Use Never Used 07/10/23 14:11 PHQ-9: PHQ-9 Score PHQ-9: Total score 0 07/10/23 14:11 Thrive Assessment: Date of Thrive Assessment Date Thrive assessed 01/03/23 07/10/23 14:11 Currently or been in a relationship where the following occur: no concerns reported Const General: cooperative, no acute distress and well developed Chest Chest palpation & inspection: normal inspection of the chest Resp Effort & Inspection: normal respiratory effort Auscultation: clear to auscultation bilaterally Percussion: percussion normal Cardio Jugular venous distension: no JVD Rate: regular rate Rhythm: regular rhythm GI Inspection: Yes normal to inspection Assessment and Plan Assessment & Plan (1) Paroxysmal atrial fibrillation: Code(s): I48.0 - Paroxysmal atrial fibrillation Plan: stable; same rx (2) Hyperlipidemia: Code(s): E78.5 - Hyperlipidemia, unspecified Plan: stable; do labs (3) Hypertension: Code(s): I10 - Essential (primary) hypertension Plan: stable; same rx Orders: Orders Lipid Panel Today E78.5 - Hyperlipidemia, unspecified Complete Blood Count Auto Diff Today D64.9 - Anemia, unspecified Comprehensive [place]. Panel Fast Today N28.9 - Disorder of kidney and ureter, unspecified Thyroid Stimulating Hormone Today E03.9 - Hypothyroidism, unspecified Coding Level of Care Code Tele Est Pt Level 4 (88998) Diagnoses Paroxysmal atrial fibrillation I48.0 Hyperlipidemia E78.5 Hypertension I10
== END 2023-07-10 14:16 | disposition home or self-care (01) ==
PROVIDERS: PCP Internal Medicine; Visit Provider Internal Medicine
DX: I48.0 Paroxysmal atrial fibrillation (principal); E78.5 Hyperlipidemia, unspecified; I10 Essential (primary) hypertension
CPT/HCPCS: 99214

== ENCOUNTER 2023-08-04 07:40 | Outpatient (REF) | payer MEDICARE, SELFPAY ==
[2023-08-04 08:13] LABS: MANUAL DIFF FLAG NO
[2023-08-04 08:52] LABS: Basophils Absolute Auto 0.1 X10*3/uL (0.0-0.2); Basophils Percent Auto 0.8 % (0-2); Eosinophils Absolute Auto 0.6 X10*3/uL (0.0-0.4); Eosinophils Percent Auto 4.8 % (0-4); Hematocrit 45.7 % (37.0-47.0); Hemoglobin 14.1 g/dl (12.0-16.0); Imm Gran Abs Auto 0.11 X10*3/uL (0.00-0.03); Imm Gran Pct Auto 0.9 % (0.0-0.4); Lymphocytes Percent Auto 16.5 % (20-40); Mean Corpuscular HGB Conc 30.9 g/dl (31.0-35.0); Mean Corpuscular Hemoglobin 27.8 pg (27.0-33.0); Mean Corpuscular Volume 90.1 fL (80.0-98.0); Mean Platelet Volume 11.1 fL (9.4-12.3); Monocytes Absolute Auto 1.5 X10*3/uL (0.1-1.2); Monocytes Percent Auto 12.6 % (2-11); Neutrophils Absolute Auto 7.7 x10*3/uL (2.0-8.3); Neutrophils Percent Auto 64.4 % (45-73); Platelet Count 257 X10*3/uL (160-400); Red Blood Count 5.07 X10*6/uL (4.20-5.50); Red Cell Distribution Width 15.6 % (11.0-16.0); White Blood Count 11.9 X10*3/uL (4.8-10.8)
[2023-08-04 09:32] LABS: Alanine Aminotransferase 28 U/L (0-31); Albumin Level 3.4 g/dL (3.5-5.0); Alkaline Phosphatase 111 U/L (39-117); Anion Gap 18 (12-20); Aspartate Amino Transferase 26 U/L (5-31); Bilirubin Total 0.5 mg/dL (0.0-1.0); Blood Urea Nitrogen 53 mg/dL (9-16); Carbon Dioxide 23 mmol/L (22-29); Chloride 105 mmol/L (96-108); Cholesterol 124 mg/dL (<200); Estimated Glomerular Filt Rate 33; Glucose Fasting 178 mg/dL (60-99); HDL Cholesterol 42 mg/dL (>40); LDL Cholesterol Calculated 65 mg/dL (<100); Potassium 4.9 mmol/L (3.3-5.1); Sodium 141 mmol/L (135-145); Total Protein 7.8 g/dL (6.5-8.0); Triglycerides 85 mg/dL (<150)
[2023-08-04 09:40] LABS: Thyroid Stimulating Hormone 1.55 uIU/mL (0.32-4.0)
== END 2023-08-04 07:41 | disposition home or self-care (01) ==
LOC: HO.LAB 07:40
PROVIDERS: PCP Internal Medicine; Visit Provider Internal Medicine
DX: D64.9 Anemia, unspecified (principal); N28.9 Disorder of kidney and ureter, unspecified; E78.5 Hyperlipidemia, unspecified; E03.9 Hypothyroidism, unspecified
CPT/HCPCS: 36415; 80053; 80061; 84443; 85025

== ENCOUNTER 2023-09-13 14:20 | Outpatient (REF) | payer MEDICARE, SELFPAY ==
[2023-09-13 16:06] LABS: Hematocrit 43.8 % (37.0-47.0); Hemoglobin 13.7 g/dl (12.0-16.0); Mean Corpuscular HGB Conc 31.3 g/dl (31.0-35.0); Mean Corpuscular Hemoglobin 27.8 pg (27.0-33.0); Mean Corpuscular Volume 88.8 fL (80.0-98.0); Mean Platelet Volume 10.7 fL (9.4-12.3); Platelet Count 353 X10*3/uL (160-400); Red Blood Count 4.93 X10*6/uL (4.20-5.50); Red Cell Distribution Width 13.9 % (11.0-16.0); White Blood Count 13.1 X10*3/uL (4.8-10.8)
[2023-09-13 16:37] LABS: B Type Natriuretic Peptide 447 pg/mL (<100)
[2023-09-13 16:46] LABS: Anion Gap 13 (12-20); Blood Urea Nitrogen 46 mg/dL (9-16); Calcium 9.4 mg/dL (8.4-10.2); Carbon Dioxide 27 mmol/L (22-29); Chloride 97 mmol/L (96-108); Estimated Glomerular Filt Rate 29; Glucose Random 452 mg/dL (60-115); Potassium 5.1 mmol/L (3.3-5.1); Sodium 132 mmol/L (135-145)
== END 2023-09-13 14:21 | disposition home or self-care (01) ==
LOC: HO.LAB 14:20
PROVIDERS: PCP Internal Medicine; Visit Provider Internal Medicine Cardiovascular Disease
DX: I48.0 Paroxysmal atrial fibrillation (principal); I50.30 Unspecified diastolic (congestive) heart failure
CPT/HCPCS: 36415; 80048; 83880; 85027; 93005; 99212

== ENCOUNTER 2023-09-13 14:20 | Outpatient (AMB) | payer MEDICARE, SELFPAY ==
--- NOTE | 2023-09-13 14:44 | A.OFFVIS_ITS ---
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 Daughter acts as an motion picture projectionist apprentice. As per the patient's daughter patient has been more fatigue and tired recently. No lightheadedness, syncope. Has been drinking adequate fluids. Does not have any significant symptoms of heart failure with no shortness of breath, orthopnea, PND. She says her shortness of breath much improved. Her heart is remained regular rhythm. No overt bleeding issues or neurologic events. Noted today did a creatinine at increased to 1.51 on a blood work from a month ago. [facility] Medical History Paroxysmal atrial fibrillation Atrial flutter Persistent atrial fibrillation New onset a-fib Obesity Hypertension Surgical History History of nephrectomy, left Hx of cholecystectomy Family History Mother No problems noted. Father No problems noted. Social History Housing: House Alcohol intake: never Patient Tobacco Use Status: Never used Tobacco e-Cigarette/Vaping Use: Never Used Second Hand Smoke Exposure: No service: No Current occupational status: retired Cognitive needs: No Hearing needs: Yes Vision needs: No Review of Systems Const Denies chills, Denies fatigue, Denies fever(s), Denies frequent falls, Denies w eakness, Denies weight gain and Denies weight loss ENT Denies dizziness Card Denies chest pain, Denies leg edema, Denies lightheadedness, Denies palpi tations, Denies dyspnea, Denies dyspnea on exertion, Denies orthopnea and Denies other (loss of consciousness) Resp Denies cough, Denies dyspnea and Denies dyspnea on exertion GI Denies hematochezia and Denies change in stool character Musc Denies abnormal gait, Denies muscle weakness, Denies numbness, Denies radiating pain into limb and Denies tingling Neuro Denies abnormal gait, Denies dizziness, Denies frequent falls, Denies numbness, Denies tingling and Denies weakness Endo Denies fatigue and Denies palpitations Physical Exam Vital Signs: Last Vital Signs Pulse 59 09/13/23 14:46 BP 112/72 09/13/23 14:46 BMI result Body Mass Index 27.3 Const General: cooperative, healthy appearing, comfortable and no acute distress Orientation/consciousness: patient oriented x3 Neck Neck: Yes normal visual inspection Resp Effort & Inspection: normal respiratory effort Auscultation: clear to auscultation bilaterally, no crackles, no rales, no rhonchi and no wheezes Cardio Jugular venous distension: no JVD Rate: tachycardic Rhythm: regular rhythm Heart sounds: S1 normal heart sound present, S2 normal heart sound present, no gallops, no murmurs and no rubs Peripheral pulses: Peripheral pulses 2+ throughout GI Inspection: Yes normal to inspection Neuro General: patient oriented x3 Extrem General: No clubbing, No cyanosis, Yes pedal edema and Yes other (Venous insufficiency with varicose veins) Psych Appearance: grossly normal Mental Status: mental status grossly normal Speech and movement: Normal speech and movement present Office Procedures EKG Details: EKG shows sinus bradycardia with bifascicular block with right bundle and left anterior fascicular block with lateral T-wave changes suggestive of repolarization abnormality [id number], Complete Assessment & Plan Assessment & Plan (1) Paroxysmal atrial fibrillation: Code(s): I48.0 - Paroxysmal atrial fibrillation Plan: Patient paroxysmal atrial fibrillation is doing extremely well with rhythm con trol approach much improved symptoms of shortness of breath no signs or symptoms of heart failure. She has not developed some sinus bradycardia and symptoms of fatigue which may be due to combination both amiodarone as well as atenolol in the setting of acute kidney injury with reduce atenolol excretion. Advised to taper atenolol to 25 mg every other day and call us in few days. If heart rate remains stable will discontinue atenolol therapy completely. Follow-up lab work today including BMP, BNP as well as CBC to make sure she is not significantly anemic. For now continue Eliquis at 5 mg b.i.d.. Continue amiodarone therapy. (2) (HFpEF) heart failure with preserved ejection fraction: Code(s): I50.30 - Unspecified diastolic (congestive) heart failure Plan: Prior symptoms of heart failure with preserved ejection fraction setting of persistent atrial fibrillation with BNP in the 1200 range. She is status post cardioversion and maintaining normal rhythm and I thing heart failure syndrome has resolved. She is noted to have elevated creatinine most likely from over-diuresis related to Lasix. Will check BMP today. Will most likely taper and hopefully discontinue Lasix therapy in the long run. This was discussed with her. Continue rhythm control approach as above. Continue aggressive blood pressure control, blood pressure on the lower side today. Taper and discontinue atenolol as above. Will follow up in the clinic in 3 months time, sooner p.r.n.. Thank you for allowing me to partake in the care Orders: Orders Basic Metabolic Panel Today I48.0 - Paroxysmal atrial fibrillation B Type Natriuretic Peptide Today I48.0 - Paroxysmal atrial fibrillation Complete Blood Count no Diff Today I48.0 - Paroxysmal atrial fibrillation Medications: Changed From atenolol 25 mg PO DAILY 30 tabs 3RF I48.0 - Paroxysmal atrial fibrillation To atenolol 25 mg orally every other day; 30 tabs 3RF I48.0 - Paroxysmal atrial fibrillation On Hold furosemide Hold Comment: Doctor's Order 40 mg PO DAILY 90 days 90 tabs 5RF Coding Level of Care Code Est Pt Level 4 (09631) Diagnoses Paroxysmal atrial fibrillation I48.0 (HFpEF) heart failure with preserved ejection fraction I50.30 CPT Codes EKG - CPT: 36697-[id number], Complete ([id number])
[2023-09-13 14:46] VITALS: BP 112/72; PULSE 59; BMI 27.3
== END 2023-09-13 15:15 | disposition home or self-care (01) ==
PROVIDERS: PCP Internal Medicine; Visit Provider Internal Medicine Cardiovascular Disease
DX: I48.0 Paroxysmal atrial fibrillation (principal); I50.30 Unspecified diastolic (congestive) heart failure
CPT/HCPCS: 93010; 99214

== ENCOUNTER 2023-09-18 11:05 | Outpatient (REF) | payer MEDICARE, SELFPAY ==
[2023-09-18 13:41] LABS: Anion Gap 15 (12-20); Blood Urea Nitrogen 45 mg/dL (9-16); Calcium 9.4 mg/dL (8.4-10.2); Carbon Dioxide 28 mmol/L (22-29); Chloride 96 mmol/L (96-108); Estimated Glomerular Filt Rate 29; Potassium 4.8 mmol/L (3.3-5.1); Sodium 134 mmol/L (135-145)
[2023-09-18 13:47] LABS: Glucose Random 548 mg/dL (60-115)
== END 2023-09-18 11:06 | disposition home or self-care (01) ==
LOC: HO.LAB 11:05
PROVIDERS: Visit Provider Internal Medicine Cardiovascular Disease
DX: I50.30 Unspecified diastolic (congestive) heart failure (principal)
CPT/HCPCS: 36415; 80048

== ENCOUNTER 2023-09-21 11:31 | Outpatient (AMB) | payer MEDICARE, SELFPAY ==
[2023-09-21 11:33] VITALS: BP 122/70; PULSE 70; O2SAT 95; BMI 27.1
--- NOTE | 2023-09-21 11:33 | MHC.PC.OV ---
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: Not Required per policy Accompanied by: Self / Same As Patient Allergies cephalexin Allergy (Intermediate, Verified 09/21/23 11:34) Rash Medication List - Last Reconciled 09/21/23 by Brian Pisano MD amiodarone 200 mg PO Q24H apixaban (Eliquis) 5 mg PO BID atorvastatin 20 mg PO DAILY cholecalciferol (vitamin D3) 50 mcg PO DAILY lisinopril 40 mg PO DAILY Tobacco use date assessed: 04/09/23 Fall risk assessment: 1 Fall in past year Last assessed Fall Risk: 09/21/23 Dental Screening Dental Screen Date: 09/21/23 Did you have a dental visit in the last 12 months?: Yes Did you have a dental problem in the last 6 months where you did not have access to dental care?: No Was dental information given to patient?: Patient has dentist HPI Elevated Blood Sugar HPI Details New DM PFSH Medical History Paroxysmal atrial fibrillation Atrial flutter Persistent atrial fibrillation New onset a-fib Obesity Hypertension Surgical History History of nephrectomy, left Hx of cholecystectomy Family History Mother No problems noted. Father No problems noted. Social History Housing: House Alcohol intake: never Patient Tobacco Use Status: Never used Tobacco e-Cigarette/Vaping Use: Never Used Second Hand Smoke Exposure: No service: No Current occupational status: retired Cognitive needs: No Hearing needs: Yes Vision needs: No Questionnaire Thrive Questionnaire Date Thrive assessed: 01/03/23 DAKOTA-7 AMB Questionnaire DAKOTA-7 Date DAKOTA - 7 assessed: 01/03/23 Source: Developed by Drs. Daniel Dickerson, Catrachita Broussard, Bigg Sotelo and colleagues, with an educational forrest from [employer]. Review of Systems Const Denies chills, Denies headache(s) and Denies weight loss ENT Denies headache(s) Card Denies chest pain, Denies syncope, Denies irregular heart rhythm and Denies dyspnea Resp Denies chest congestion, Denies cough and Denies dyspnea GI Denies abdominal pain, Denies change in stool character, Denies nausea and Denies vomiting Musc Denies deformity and Denies joint swelling Neuro Denies syncope and Denies headache(s) Physical exam (Primary Care) Vital Signs: Last Vital Signs Pulse 70 09/21/23 11:33 BP 122/70 09/21/23 11:33 Pulse Ox 95 09/21/23 11:33 Oxygen Delivery Method Room Air 09/21/23 11:33 BMI result Body Mass Index 27.1 Tobacco/Smoking Status: Tobacco use Status Tobacco use date assessed 04/09/23 09/21/23 11:34 Patient Tobacco Use Status Never used Tobacco 09/21/23 11:34 e-Cigarette/Vaping Use Never Used 09/21/23 11:34 Thrive Assessment: Date of Thrive Assessment Date Thrive assessed 01/03/23 09/21/23 11:34 Const General: cooperative, comfortable, no acute distress and alert Neck Neck: Yes no lymphadenopathy Thyroid: Thyroid normal Resp Effort & Inspection: normal respiratory effort Auscultation: clear to auscultation bilaterally Percussion: percussion normal Cardio Jugular venous distension: no JVD Palpation: normal PMI Rate: regular rate Rhythm: regular rhythm Heart sounds: S1 normal heart sound present and S2 normal heart sound present GI Inspection: Yes normal to inspection Palpation (GI): No hepatosplenomegaly present Skin General skin exam: no rashes or lesions noted Extrem General: Yes no clubbing, cyanosis or edema Assessment and Plan Assessment & Plan (1) Diabetes mellitus with hyperglycemia: Code(s): E11.65 - Type 2 diabetes mellitus with hyperglycemia Plan: rx and labs Orders: Orders Thyroid Stimulating Hormone Today E03.9 - Hypothyroidism, unspecified Complete Blood Count Auto Diff Today D64.9 - Anemia, unspecified Lipid Panel Today E78.5 - Hyperlipidemia, unspecified Comprehensive [place]. Panel Fast Today N28.9 - Disorder of kidney and ureter, unspecified Hemoglobin A1c Today R73.9 - Hyperglycemia, unspecified Medications: New metformin 500 mg PO BID 180 tabs 8RF blood-glucose meter (FreeStyle Lite Meter kit) As directed 1 ea 0RF Coding Level of Care Code Est Pt Level 4 (05774) Diagnoses Diabetes mellitus with hyperglycemia E11.65
== END 2023-09-21 12:03 | disposition home or self-care (01) ==
PROVIDERS: PCP Internal Medicine; Visit Provider Internal Medicine
DX: E11.65 Type 2 diabetes mellitus with hyperglycemia (principal)
CPT/HCPCS: 99214

== ENCOUNTER 2023-10-03 12:24 | Outpatient (REF) | payer MEDICARE, SELFPAY ==
[2023-10-03 12:40] LABS: MANUAL DIFF FLAG NO
[2023-10-03 13:04] LABS: Basophils Absolute Auto 0.1 X10*3/uL (0.0-0.2); Basophils Percent Auto 0.5 % (0-2); Eosinophils Absolute Auto 0.2 X10*3/uL (0.0-0.4); Eosinophils Percent Auto 1.2 % (0-4); Hematocrit 44.6 % (37.0-47.0); Hemoglobin 13.9 g/dl (12.0-16.0); Imm Gran Abs Auto 0.08 X10*3/uL (0.00-0.03); Imm Gran Pct Auto 0.7 % (0.0-0.4); Lymphocytes Absolute Auto 1.5 X10*3/uL (1.2-4.9); Lymphocytes Percent Auto 12.2 % (20-40); Mean Corpuscular HGB Conc 31.2 g/dl (31.0-35.0); Mean Corpuscular Hemoglobin 28.5 pg (27.0-33.0); Mean Corpuscular Volume 91.4 fL (80.0-98.0); Mean Platelet Volume 11.3 fL (9.4-12.3); Monocytes Absolute Auto 0.8 X10*3/uL (0.1-1.2); Monocytes Percent Auto 6.9 % (2-11); Neutrophils Absolute Auto 9.4 x10*3/uL (2.0-8.3); Neutrophils Percent Auto 78.5 % (45-73); Platelet Count 189 X10*3/uL (160-400); Red Blood Count 4.88 X10*6/uL (4.20-5.50); Red Cell Distribution Width 14.3 % (11.0-16.0)
[2023-10-03 13:08] LABS: Estimated Average Glucose 255 mg/dL; Hemoglobin A1c % 10.5 % (<6.0)
[2023-10-03 13:54] LABS: Alanine Aminotransferase 23 U/L (0-31); Albumin Level 3.7 g/dL (3.5-5.0); Alkaline Phosphatase 104 U/L (39-117); Anion Gap 14 (12-20); Aspartate Amino Transferase 22 U/L (5-31); Bilirubin Total 0.4 mg/dL (0.0-1.0); Blood Urea Nitrogen 34 mg/dL (9-16); Calcium 9.3 mg/dL (8.4-10.2); Carbon Dioxide 20 mmol/L (22-29); Chloride 108 mmol/L (96-108); Cholesterol 118 mg/dL (<200); Estimated Glomerular Filt Rate 36; Glucose Fasting 217 mg/dL (60-99); HDL Cholesterol 51 mg/dL (>40); LDL Cholesterol Calculated 53 mg/dL (<100); Potassium 4.6 mmol/L (3.3-5.1); Sodium 137 mmol/L (135-145); Total Protein 7.8 g/dL (6.5-8.0); Triglycerides 73 mg/dL (<150)
[2023-10-03 14:15] LABS: Thyroid Stimulating Hormone 7.84 uIU/mL (0.32-4.0)
== END 2023-10-03 12:25 | disposition home or self-care (01) ==
LOC: HO.LAB 12:24
PROVIDERS: PCP Internal Medicine; Visit Provider Internal Medicine
DX: D64.9 Anemia, unspecified (principal); E03.9 Hypothyroidism, unspecified; E78.5 Hyperlipidemia, unspecified; R73.9 Hyperglycemia, unspecified; N28.9 Disorder of kidney and ureter, unspecified
CPT/HCPCS: 36415; 80053; 80061; 83036; 84443; 85025

== ENCOUNTER 2023-10-03 14:05 | Outpatient (AMB) | payer MEDICARE, SELFPAY ==
[2023-10-03 14:07] VITALS: BP 140/70; PULSE 70; O2SAT 98; BMI 27.1
--- NOTE | 2023-10-03 14:07 | A.OFFPC_ITS ---
Vital Signs 10/03/23 14:07 Height 5 ft 3 in Weight 153 lb BMI 27.1 BP 140/70 H Blood Pressure Location Lt brachial Position Sitting Pulse 70 Pulse Source Pulse Oximeter Pulse Oximetry (%) 98 Oxygen Delivery Method Room Air Intake Visit Reasons: weakness, shaky 2 days ago. Service Provider Required: No Shredder Tender: Present Allergies cephalexin Allergy (Intermediate, Verified 10/03/23 14:07) Rash Tobacco use date assessed: 04/09/23 Fall risk assessment: No Falls in past year Last assessed Fall Risk: 10/03/23 Dental Screening Dental Screen Date: 10/03/23 Did you have a dental visit in the last 12 months?: Yes Did you have a dental problem in the last 6 months where you did not have access to dental care?: No Was dental information given to patient?: Patient has dentist HPI weakness, shaky 2 days ago. HPI Details DM; BS improving on rx PFSH Medical History Paroxysmal atrial fibrillation Atrial flutter Persistent atrial fibrillation New onset a-fib Obesity Hypertension Surgical History History of nephrectomy, left Hx of cholecystectomy Family History Mother No problems noted. Father No problems noted. Social History Housing: House Alcohol intake: never Patient Tobacco Use Status: Never used Tobacco e-Cigarette/Vaping Use: Never Used Second Hand Smoke Exposure: No service: No Current occupational status: retired Cognitive needs: No Hearing needs: Yes Vision needs: No Questionnaire Thrive Questionnaire Date Thrive assessed: 01/03/23 DAKOTA-7 AMB Questionnaire DAKOTA-7 Date DAKOTA - 7 assessed: 01/03/23 Source: Developed by Drs. Daniel Dickerson, Catrachita Broussard, Bigg Sotelo and colleagues, with an educational forrest from [employer]. Review of Systems Const Denies chills, Denies headache(s) and Denies weight loss ENT Denies headache(s) Card Denies chest pain, Denies syncope, Denies irregular heart rhythm and Denies dyspnea Resp Denies chest congestion, Denies cough and Denies dyspnea GI Denies abdominal pain, Denies change in stool character, Denies nausea and Denies vomiting Musc Denies deformity and Denies joint swelling Neuro Denies syncope and Denies headache(s) Physical exam (Primary Care) Vital Signs: Last Vital Signs Pulse 70 10/03/23 14:07 BP 140/70 H 10/03/23 14:07 Pulse Ox 98 10/03/23 14:07 Oxygen Delivery Method Room Air 10/03/23 14:07 BMI result Body Mass Index 27.1 Tobacco/Smoking Status: Tobacco use Status Tobacco use date assessed 04/09/23 10/03/23 14:08 Patient Tobacco Use Status Never used Tobacco 10/03/23 14:08 e-Cigarette/Vaping Use Never Used 10/03/23 14:08 Thrive Assessment: Date of Thrive Assessment Date Thrive assessed 01/03/23 10/03/23 14:08 Const General: cooperative, comfortable, no acute distress and alert Neck Neck: Yes no lymphadenopathy Thyroid: Thyroid normal Resp Effort & Inspection: normal respiratory effort Auscultation: clear to auscultation bilaterally Percussion: percussion normal Cardio Jugular venous distension: no JVD Palpation: normal PMI Rate: regular rate Rhythm: regular rhythm Heart sounds: S1 normal heart sound present and S2 normal heart sound present GI Inspection: Yes normal to inspection Palpation (GI): No hepatosplenomegaly present Skin General skin exam: no rashes or lesions noted Extrem General: Yes no clubbing, cyanosis or edema Assessment and Plan Assessment & Plan (1) Diabetes mellitus with hyperglycemia: Code(s): E11.65 - Type 2 diabetes mellitus with hyperglycemia Plan: improving; same rx Coding Level of Care Code Est Pt Level 3 (64776) Diagnoses Diabetes mellitus with hyperglycemia E11.65
== END 2023-10-03 14:29 | disposition home or self-care (01) ==
PROVIDERS: PCP Internal Medicine; Visit Provider Internal Medicine
DX: E11.65 Type 2 diabetes mellitus with hyperglycemia (principal)
CPT/HCPCS: 99213

== ENCOUNTER 2024-02-04 12:56 | Outpatient (REF) | payer MEDICARE, SELFPAY ==
[2024-02-04 13:55] LABS: MANUAL DIFF FLAG NO
[2024-02-04 14:10] LABS: Basophils Absolute Auto 0.1 X10*3/uL (0.0-0.2); Basophils Percent Auto 0.7 % (0-2); Eosinophils Absolute Auto 0.1 X10*3/uL (0.0-0.4); Hematocrit 40.8 % (37.0-47.0); Hemoglobin 13.1 g/dl (12.0-16.0); Imm Gran Abs Auto 0.06 X10*3/uL (0.00-0.03); Imm Gran Pct Auto 0.6 % (0.0-0.4); Lymphocytes Absolute Auto 1.5 X10*3/uL (1.2-4.9); Lymphocytes Percent Auto 14.5 % (20-40); Mean Corpuscular HGB Conc 32.1 g/dl (31.0-35.0); Mean Corpuscular Hemoglobin 28.9 pg (27.0-33.0); Mean Corpuscular Volume 89.9 fL (80.0-98.0); Mean Platelet Volume 10.6 fL (9.4-12.3); Monocytes Absolute Auto 0.8 X10*3/uL (0.1-1.2); Monocytes Percent Auto 7.7 % (2-11); Neutrophils Absolute Auto 7.6 x10*3/uL (2.0-8.3); Neutrophils Percent Auto 75.5 % (45-73); Platelet Count 293 X10*3/uL (160-400); Red Blood Count 4.54 X10*6/uL (4.20-5.50); Red Cell Distribution Width 15.4 % (11.0-16.0); White Blood Count 10.1 X10*3/uL (4.8-10.8)
[2024-02-04 14:34] LABS: Anion Gap 13 (12-20); Blood Urea Nitrogen 38 mg/dL (9-16); Calcium 9.6 mg/dL (8.4-10.2); Carbon Dioxide 23 mmol/L (22-29); Chloride 107 mmol/L (96-108); Estimated Glomerular Filt Rate 42; Glucose Random 134 mg/dL (60-115); Potassium 4.5 mmol/L (3.3-5.1); Sodium 138 mmol/L (135-145)
[2024-02-04 14:53] LABS: B Type Natriuretic Peptide 146 pg/mL (<100)
== END 2024-02-04 12:57 | disposition home or self-care (01) ==
LOC: HO.LAB 12:56
PROVIDERS: PCP Internal Medicine; Visit Provider Internal Medicine Cardiovascular Disease
DX: I48.0 Paroxysmal atrial fibrillation (principal); I50.30 Unspecified diastolic (congestive) heart failure; R26.89 Other abnormalities of gait and mobility; R25.1 Tremor, unspecified
CPT/HCPCS: 36415; 80048; 83880; 85025; 85027; 93005; 99212

== ENCOUNTER 2024-02-04 12:57 | Outpatient (AMB) | payer MEDICARE, SELFPAY ==
[2024-02-04 13:03] VITALS: BP 130/62; PULSE 84; BMI 25.9
--- NOTE | 2024-02-04 13:03 | MHC.OFFVIS ---
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 blood-glucose meter (FreeStyle Lite Meter kit) As directed cholecalciferol (vitamin D3) 50 mcg PO DAILY lisinopril 40 mg PO DAILY metformin 500 mg PO BID HPI Comments Details: Abimael comes for follow-up. She has been doing well from cardiac perspective. She says she feels stronger in the upper body. She does not get any significant trouble with shortness of breath, orthopnea, PND. No prolonged palpitation irregular heartbeat. She has been developing more tremors and balance issues which she is concerned about an thinks might be side effect to amiodarone therapy which is possible. Also could be due to truncal muscle weakness due to aging and causing balance issues. She notes no bleeding issues or neurologic events. Takes all her medications. Denies any chest pain. No syncopal episodes of lightheadedness. She has since moved to live with a daughter near [place] making her traveled to these visits a little more difficult. [facility] Medical History Paroxysmal atrial fibrillation Atrial flutter Persistent atrial fibrillation New onset a-fib Obesity Hypertension Surgical History History of nephrectomy, left Hx of cholecystectomy Family History Mother No problems noted. Father No problems noted. Social History Housing: House Alcohol intake: never Patient Tobacco Use Status: Never used Tobacco e-Cigarette/Vaping Use: Never Used Second Hand Smoke Exposure: No service: No Current occupational status: retired Cognitive needs: No Hearing needs: Yes Vision needs: No Review of Systems Const Denies chills, Denies fatigue, Denies fever(s), Denies frequent falls, Denies weakness, Denies weight gain and Denies weight loss ENT Denies dizziness Card Denies chest pain, Denies leg edema, Denies lightheadedness, Denies palpitations, Denies dyspnea and Denies dyspnea on exertion Resp Denies cough, Denies dyspnea and Denies dyspnea on exertion GI Denies hematochezia Musc Denies abnormal gait, Denies muscle weakness, Denies numbness, Denies radiating pain into limb and Denies tingling Neuro Denies abnormal gait, Denies dizziness, Denies frequent falls, Denies numbness, Denies tingling and Denies weakness Endo Denies fatigue and Denies palpitations Physical Exam Vital Signs: Last Vital Signs Pulse 84 02/04/24 13:03 BP 130/62 02/04/24 13:03 BMI result Body Mass Index 25.9 Const General: cooperative, healthy appearing, comfortable and no acute distress Orientation/consciousness: patient oriented x3 Neck Neck: Yes normal visual inspection Resp Effort & Inspection: normal respiratory effort Auscultation: clear to auscultation bilaterally, no crackles, no rales, no rhonchi and no wheezes Cardio Jugular venous distension: no JVD Rate: tachycardic Rhythm: regular rhythm Heart sounds: S1 normal heart sound present, S2 normal heart sound present, no gallops, no murmurs and no rubs Peripheral pulses: Peripheral pulses 2+ throughout GI Inspection: Yes normal to inspection Neuro General: patient oriented x3 Extrem General: No clubbing, No cyanosis, Yes pedal edema and Yes other (Venous insufficiency with varicose veins) Psych Appearance: grossly normal Mental Status: mental status grossly normal Speech and movement: Normal speech and movement present Office Procedures EKG Details: EKG shows normal sinus rhythm with right bundle and left anterior fascicular block consistent with bifascicular block, unchanged from before. [id number], Complete Assessment & Plan Assessment & Plan (1) Paroxysmal atrial fibrillation: Code(s): I48.0 - Paroxysmal atrial fibrillation Category: Medical Plan: Paroxysmal atrial fibrillation has done extremely well with rhythm control approach as remained out of heart failure related to it. Continue to pursue rhythm control approach. However she is developing possible side effects related to amiodarone therapy which can cause balance issues. This was recognized. I would for now consider reducing the amiodarone dose to 100 mg daily with expectation that she might have recurrent AFib and this was discussed with both her and her son and they understand and agree. Advised to call me with worsening symptoms. If she does not develop recurrent atrial fibrillation on low-dose, will follow up in 3 months and consider switching her to an alternative antiarrhythmic such as flecainide. If she develops recurrent atrial fibrillation will require synchronized cardioversion and referral to electrophysiology for consideration of ablation. Continue full oral anticoagulation, currently on Eliquis. Advise BMP and CBC. Continue aggressive control blood pressure. She is encouraged to continue to participate in aggressive physical therapy. Will refer to Neurology as well as refer her for physical therapy for balance issues. (2) (HFpEF) heart failure with preserved ejection fraction: Code(s): I50.30 - Unspecified diastolic (congestive) heart failure Category: Medical Plan: Heart failure preserved ejection fraction has remained euvolemic and well compensated and rhythm control approach. Currently not on diuretic regimen. Continue aggressively rhythm control approach which has helped her significantly. Continue aggressive blood pressure control which is currently well optimized advised to monitor blood pressure at home maintain a log. Goal blood pressure less than 130/84. Daily weight monitoring avoidance of salt loading was discussed. Will follow up in the clinic in 3 months time, sooner p.r.n.. Thank you for allowing me to partake in her care Orders: Orders PT Evaluation and Treatment Today R26.89 - Other abnormalities of gait and mobility Basic Metabolic Panel Today I48.0 - Paroxysmal atrial fibrillation Complete Blood Count no Diff Today I48.0 - Paroxysmal atrial fibrillation Referrals Neurology Referral R25.1 - Tremor, unspecified Medications: Changed From amiodarone 200 mg PO Q24H 90 tabs 2RF I48.0 - Paroxysmal atrial fibrillation To amiodarone 100 mg (1/2 x 200 mg) PO Q24H 90 tabs 2RF I48.0 - Paroxysmal atrial fibrillation
== END 2024-02-04 13:28 | disposition home or self-care (01) ==
PROVIDERS: PCP Internal Medicine; Visit Provider Internal Medicine Cardiovascular Disease
DX: I48.0 Paroxysmal atrial fibrillation (principal); I50.30 Unspecified diastolic (congestive) heart failure
CPT/HCPCS: 93010; 99214

== ENCOUNTER 2024-06-02 15:01 | Outpatient (AMB) | payer MEDICARE, SELFPAY ==
--- NOTE | 2024-06-02 15:08 | MHC.OFFVIS ---
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 blood-glucose meter (FreeStyle Lite Meter kit) As directed cholecalciferol (vitamin D3) 50 mcg PO DAILY lisinopril 40 mg PO DAILY metformin 500 mg PO BID HPI Comments Details: Rosie comes for follow-up. Over the last month or so has been living independently at her own house. She has not had any prolonged palpitation irregular heartbeat. No worsening heart failure symptoms. Denies any orthopnea, PND, leg edema. No worsening shortness of breath. Denies lightheadedness, syncope. However she complains of weakness in lower extremity especially if she is standing for longer period time. Also has balance issues. No falls. No bleeding issues or neurologic events. [facility] Medical History Paroxysmal atrial fibrillation Atrial flutter Persistent atrial fibrillation New onset a-fib Obesity Hypertension Surgical History History of nephrectomy, left Hx of cholecystectomy Family History Mother No problems noted. Father No problems noted. Social History Housing: House Alcohol intake: never Patient Tobacco Use Status: Never used Tobacco e-Cigarette/Vaping Use: Never Used Second Hand Smoke Exposure: No service: No Current occupational status: retired Cognitive needs: No Hearing needs: Yes Vision needs: No Review of Systems Const Denies chills, Denies fatigue, Denies fever(s), Denies frequent falls, Denies weakness, Denies weight gain and Denies weight loss ENT Denies dizziness Card Denies chest pain, Denies leg edema, Denies lightheadedness, Denies palpitations, Denies dyspnea and Denies dyspnea on exertion Resp Denies cough, Denies dyspnea and Denies dyspnea on exertion GI Denies hematochezia Musc Denies abnormal gait, Denies muscle weakness, Denies numbness, Denies radiating pain into limb and Denies tingling Neuro Denies abnormal gait, Denies dizziness, Denies frequent falls, Denies numbness, Denies tingling and Denies weakness Endo Denies fatigue and Denies palpitations Physical Exam Vital Signs: Last Vital Signs Pulse 77 06/02/24 15:09 BP 140/62 H 06/02/24 15:09 BMI result Body Mass Index 24.8 Const General: cooperative, healthy appearing, comfortable and no acute distress Orientation/consciousness: patient oriented x3 Neck Neck: Yes normal visual inspection Resp Effort & Inspection: normal respiratory effort Auscultation: clear to auscultation bilaterally, no crackles, no rales, no rhonchi and no wheezes Cardio Jugular venous distension: no JVD Rate: tachycardic Rhythm: regular rhythm Heart sounds: S1 normal heart sound present, S2 normal heart sound present, no gallops, no murmurs and no rubs Peripheral pulses: Peripheral pulses 2+ throughout GI Inspection: Yes normal to inspection Neuro General: patient oriented x3 Extrem General: No clubbing, No cyanosis, Yes pedal edema and Yes other (Venous insufficiency with varicose veins) Psych Appearance: grossly normal Mental Status: mental status grossly normal Speech and movement: Normal speech and movement present Office Procedures EKG Details: EKG shows sinus rhythm with first-degree AV block with right bundle-branch block at 77 beats per minute [id number], Complete Assessment & Plan Assessment & Plan (1) (HFpEF) heart failure with preserved ejection fraction: Code(s): I50.30 - Unspecified diastolic (congestive) heart failure Category: Medical Plan: Heart failure preserved ejection fraction with no new symptoms and doing good functionally. Currently not on any diuretic regimen. Has done extremely well with rhythm control approach. Clinically appears to be euvolemic and well compensated. Encouraged to continue to participate in rhythm control approach and continue aggressive blood pressure control. Encouraged to increase activity level and do it safely with fall protection. She understands and agrees. Signs and symptoms of heart failure were discussed again. (2) Paroxysmal atrial fibrillation: Code(s): I48.0 - Paroxysmal atrial fibrillation Category: Medical Plan: Paroxysmal atrial fibrillation done extremely well with rhythm control approach will continue pursue rhythm control approach. Continue low-dose amiodarone therapy. Will check for amiodarone toxicity. Continue to avoid stimulants. Continue full oral anticoagulation, currently on Eliquis 5 mg b.i.d.. Semi annual renal function test should be pursued. Follow up in the clinic in 6 months time after an echocardiogram. Thank you for allowing me to partake in her care Orders: Orders CA echo transthoracic complete Today I50.30 - Unspecified diastolic (congestive) heart failure Basic Metabolic Panel Today I48.0 - Paroxysmal atrial fibrillation Complete Blood Count no Diff Today I48.0 - Paroxysmal atrial fibrillation Liver Panel Today I48.0 - Paroxysmal atrial fibrillation TSH reflex Free T4 Today I48.0 - Paroxysmal atrial fibrillation XR chest 2V Today I48.0 - Paroxysmal atrial fibrillation Coding Level of Care Code Est Pt Level 4 (02129) Diagnoses (HFpEF) heart failure with preserved ejection fraction I50.30 Paroxysmal atrial fibrillation I48.0 CPT Codes EKG - CPT: [id number], Complete ([id number])
[2024-06-02 15:09] VITALS: BP 140/62; PULSE 77; BMI 24.8
== END 2024-06-02 15:30 | disposition home or self-care (01) ==
PROVIDERS: PCP Internal Medicine; Visit Provider Internal Medicine Cardiovascular Disease
DX: I50.30 Unspecified diastolic (congestive) heart failure (principal); I48.0 Paroxysmal atrial fibrillation
CPT/HCPCS: 93010; 99214

== ENCOUNTER 2024-06-02 15:01 | Outpatient (REF) | payer MEDICARE, SELFPAY ==
--- NOTE | ~2024-06-02 | XR_ITS ---
EXAMINATION: XR CHEST CLINICAL INFORMATION: I48.0 - Paroxysmal atrial fibrillation COMPARISON: Chest radiograph 11/15/2022 TECHNIQUE: 2 views of the chest FINDINGS: Lines and tubes: Upper abdominal surgical clips. Similar background of chr increased reticular opacities. No new focal consolidation. No pleural effusion. No pneumothorax. Unchanged cardiomediastinal silhouette with an ectatic thoracic aorta and prominent pulmonary arteries which can be seen in setting of pulmonary hypertension.. XR/XR chest 2V IMPRESSION: 1. Similar background of chr increased reticular opacities. No new focal consolidation. 2. Unchanged cardiomediastinal silhouette with an ectatic thoracic aorta and prominent pulmonary arteries which can be seen in setting of pulmonary hypertension. Electronically signed by: Shefali Lau MD 06/26/2024 04:42 PM EDT
[2024-06-02 16:44] LABS: Hematocrit 39.9 % (37.0-47.0); Hemoglobin 12.7 g/dl (12.0-16.0); Mean Corpuscular HGB Conc 31.8 g/dl (31.0-35.0); Mean Corpuscular Volume 84.7 fL (80.0-98.0); Mean Platelet Volume 11.2 fL (9.4-12.3); Platelet Count 251 X10*3/uL (160-400); Red Blood Count 4.71 X10*6/uL (4.20-5.50); Red Cell Distribution Width 16.5 % (11.0-16.0); White Blood Count 9.3 X10*3/uL (4.8-10.8)
[2024-06-02 17:09] LABS: Alanine Aminotransferase 29 U/L (0-31); Albumin Level 3.8 g/dL (3.5-5.0); Alkaline Phosphatase 105 U/L (39-117); Anion Gap 16 (12-20); Aspartate Amino Transferase 26 U/L (5-31); Bilirubin Direct 0.2 mg/dL (0.0-0.5); Bilirubin Total 0.5 mg/dL (0.0-1.0); Blood Urea Nitrogen 38 mg/dL (9-16); Calcium 10.2 mg/dL (8.4-10.2); Carbon Dioxide 23 mmol/L (22-29); Chloride 105 mmol/L (96-108); Estimated Glomerular Filt Rate 33; Glucose Random 150 mg/dL (60-115); Potassium 4.8 mmol/L (3.3-5.1); Sodium 139 mmol/L (135-145); Total Protein 7.8 g/dL (6.5-8.0)
[2024-06-02 17:26] LABS: TSH reflex Free T4 7.64 uIU/mL (0.32-4.0)
[2024-06-02 18:26] LABS: Free T4 (Free Thyroxine) 0.69 ng/dL (0.71-1.85)
== END 2024-06-02 15:02 | disposition home or self-care (01) ==
LOC: HO.XRAY 15:01
PROVIDERS: PCP Internal Medicine; Visit Provider Internal Medicine Cardiovascular Disease
DX: I48.0 Paroxysmal atrial fibrillation (principal); I50.30 Unspecified diastolic (congestive) heart failure
CPT/HCPCS: 36415; 71046; 80048; 80076; 84439; 84443; 85027; 93005; 99212

== ENCOUNTER → 2024-07-02 12:37 | Outpatient (REF) | payer MEDICARE, SELFPAY ==
--- NOTE | 2024-07-02 12:40 | CA_ITS ---
Transthoracic Echocardiogram Patient (Last, First, Middle): Rosie Guerrero S Gender: Female Date of : 1940 Age: 84 Procedure Date: 07/02/2024 Procedure Type: Transthoracic Echocardiogram Location: OP Height: 157.48 cm Weight: 58.97 kg BSA: 1.59 m2 Heart Rate: bpm BP: 118 / 60 mmHg Gluing Pressman: Referring MD: Arturo Tucker MD Surveillance Sensor Officer: Arturo Tucker MD Symptoms: I50.30 - Unspecified diastolic (congestive) heart failure Study Quality: Fair ECG Rhythm: Sinus Conclusions: - 1. Normal LV ejection fraction of 65-70% with grade 3 diastolic dysfunction 2. Moderately dilated left atrium 3. Cardiac valvular Dopplers within normal limits 4. Normal RV systolic pressure 5. No gross pericardial effusion Findings Left Ventricle Normal left ventricular size, thickness, and systolic function. The visually estimated ejection fraction is between 65-70%. Spectral Doppler is indicative of a restrictive filling pattern. E/E prime ratio is >15, consistent with elevated filling pressures. Evidence suggests grade III (severe) diastolic dysfunction. Right Ventricle Normal right ventricular cavity size and systolic function. Atria The left atrium is moderately dilated. There is no evidence of interatrial shunt. The right atrium is likely dilated. Aortic Valve Normal aortic valve structure and function. There is no aortic valve stenosis. There is no aortic valve regurgitation. Mitral Valve There is mild anterior and moderate posterior mitral leaflet thickening. There is mild mitral annular calcification. There is trace mitral valve regurgitation. There is no mitral valve stenosis. Pulmonic Valve The pulmonic valve is likely normal. There is trace pulmonic valve regurgitation. Tricuspid Valve Normal tricuspid valve structure. There is trace tricuspid valve regurgitation. The right ventricular systolic pressure is normal. The right ventricular systolic pressure is 19 mmHg. Normal right atrial pressure. There is no evidence of pulmonary hypertension. Great Vessels All visible segments of the aorta are normal in size. The pulmonary artery was not well visualized. There is no evidence of plaque in the aorta. Venous The inferior vena cava is normal in size and collapses greater than 50% with inspiration. Pericardium/Pleural There is no evidence of pericardial effusion. Prior Study Comparison Changes noted compared to prior study. grade 3 diastolic dysfunction is noted Measurements 2D Linear Measurements RVIDd: 3.44 RVIDd Index: 2.16 IVSd: 1.10 0.6-0.9/0.6-1.0 cm LVIDd: 4.23 3.9-5.3/4.2-5.9 cm LVIDd Index: 2.66 2.4-3.2/2.2-3.1 cm/m2 LVIDs: 2.50 2.0-3.6 cm LVPWd: 1.12 0.7-1.1 cm Ao Root: 2.70 2.1-3.5 cm LA Diam: 4.60 2.7-3.8/3.0-4.0 cm LAIDs Index: 2.89 1.5-2.3 cm/m2 LV Mass: 200.36 67-162/88-224 g LV Mass Index: 126.01 43-95/49-115 g/m2 LVOT Diam: 2.00 3.0+(-)1.3 cm Mitral Valve MV VTI: 0.31 MV Pk Woodrow: 1.23 MV Mn Woodrow: 0.67 MV Pk Grad: 6.00 MV Mn Grad: 2.00 MV Pk E: 1.24 MV PK A: 0.56 MV Decel Time: 144.00 E/A: 2.20 E'Lateral: 8.16 E'Medial: 3.15 E/E' Med: 39.40 E/E' Lat: 15.20 PHT: 42.00 MVA PHT: 5.24 MVA Continuity: 2.44 Decel Vernon: 8.56 Aortic Valve AoV Pk Woodrow: 1.26 AoV Mn Woodrow: 0.80 AoV VTI: 0.34 AoV Pk Grad: 6.00 Aov Mn Grad: 3.00 OSMAN Cont.VTI: 2.26 LVOT LVOT Pk Woodrow: 0.84 LVOT Mn Woodrow: 0.57 LVOT VTI: 0.24 LVOT Pk Grad: 3.00 LVOT Mn Grad: 2.00 LVOT Diam: 2.00 LVOT Area: 3.14 Diastolic Function MV Pk E: 1.24 MV Pk A: 0.56 E/A: 2.20 E'Medial: 3.15 E/E' Med: 39.40 E' Laterial: 8.16 E/E' Lat: 15.20 Right Ventricle TAPSE (mm): 25.00 TVS' Woodrow: 11.00 Tricuspid Valve TR Pk Woodrow: 1.98 TR Pk Grad: 16.00 RA Press: 3.00 RVSP: 19.00 Great Vessels Aorta Ao Root-2D: 2.70 2.0-3.7 cm Ao Asc: 3.20 2.1-3.4 cm Pulmonary Valve PV Pk Woodrow: 1.12 Peak PV Grad: 5.00 Updated in Other Vendor System with Status of Final Arturo Tucker MD electronically signed on 07/03/2024 12:18:59 PM with status of Final
== END ==
LOC: HO.CARD 12:37
PROVIDERS: PCP Internal Medicine; Visit Provider Internal Medicine Cardiovascular Disease
DX: I50.30 Unspecified diastolic (congestive) heart failure (principal)
CPT/HCPCS: 93306

== ENCOUNTER → 2024-07-02 12:40 | Outpatient (BNV) | payer MEDICARE, SELFPAY | PROVIDERS: PCP Internal Medicine; Visit Provider Internal Medicine Cardiovascular Disease | DX: I34.81 Nonrheumatic mitral (valve) annulus calcification (principal); I50.30 Unspecified diastolic (congestive) heart failure | CPT/HCPCS: 93306 ==

== ENCOUNTER 2024-07-25 14:22 | Outpatient (REF) | payer MEDICARE, SELFPAY ==
--- NOTE | ~2024-07-25 | CT_ITS ---
EXAMINATION: CT CHEST WITHOUT CONTRAST CLINICAL INFORMATION: Pulmonary fibrosis COMPARISON: Chest xray 06/02/24 TECHNIQUE: Multidetector volumetric CT imaging of the chest was done. Axial MIP volume rendering provided. Sagittal and coronal reformatted images were obtained. This CT examination was performed using dose optimization techniques as appropriate, variously including the following: *Automated exposure control *Adjustment of mA and/or kV according to patient size (this includes techniques or standardized protocols for targeted exams where dose is matched to indication/reason for exam; i.e. extremities or head) *Use of iterative reconstruction technique DLP: 85 mGy-cm FINDINGS: LUNGS: Scattered bilateral pulmonary nodules measuring up to 5mm. Mild diffuse bilateral subpleural reticulation. Mosaic attenuation. MEDIASTINUM: The heart is mildly enlarged. No pericardial effusion. No lymphadenopathy. CORONARY ARTERY CALCIFICATION: Severe PLEURA: There is no pleural effusion. No pleural mass or thickening. AXILLA: No lymphadenopathy. UPPER ABDOMEN: Pneumobilia OSSEOUS STRUCTURES: Unremarkable. CT/CT chest wo IV con IMPRESSION: 1. Mild diffuse bilateral subpleural reticulation may be related to interstitial lung disease. 2. Scattered bilateral pulmonary nodules measuring up to 5 mm. 3. Mosaic attenuation may be related to small airways disease. Fleischner guidelines were followed. Electronically signed by: Nahomy Arellano MD 07/25/2024 06:45 PM EDT
== END 2024-07-25 14:23 | disposition home or self-care (01) ==
LOC: HO.CT 14:22
PROVIDERS: PCP Internal Medicine; Visit Provider Internal Medicine Cardiovascular Disease
DX: J84.10 Pulmonary fibrosis, unspecified (principal)
CPT/HCPCS: 71250

== ENCOUNTER 2024-12-18 13:50 | Outpatient (AMB) | payer MEDICARE, SELFPAY ==
--- NOTE | 2024-12-18 14:33 | MHC.OFFVIS ---
Vital Signs 12/18/24 14:36 Height 5 ft 3 in Weight 138 lb BMI 24.4 BP 128/68 Blood Pressure Location Lt brachial Position Sitting Pulse 91 Pulse Source Monitor Intake Visit Reasons: 6 mth fu w ekg after echo (NS) Legal Collector Required: Yes Legal Collector Services: Legal Collector Offered & Declined Accompanied by: Son Allergies cephalexin Allergy (Intermediate, Verified 10/03/23 14:07) Rash Medication List - Last Reconciled 12/18/24 by [place] NP apixaban (Eliquis) 5 mg PO BID 90 days atorvastatin 20 mg PO DAILY blood sugar diagnostic (FreeStyle Lite Strips) Testing once a day as needed. blood-glucose meter (FreeStyle Lite Meter kit) As directed cholecalciferol (vitamin D3) 50 mcg PO DAILY lisinopril 40 mg PO DAILY HPI Comments Details: This is an 84-year-old female patient with a history of paroxysmal AFib, hypertension, hyperlipidemia, and heart failure with preserved ejection fraction, presenting for a follow-up visit. The patient is accompanied by her son, who served as the script artist throughout the visit. The patient reports feeling well overall and denies any cardiac symptoms including exertional chest pain, shortness of breath, palpitations, dizziness, fatigue, orthopnea, PND, leg edema, presyncope, or syncope. On EKG today patient is back in AFib and was previously on low-dose amiodarone but had to be discontinued due to pulmonary nodules seen on chest CT. She denies experiencing any symptoms related to this AFib episode. In the past, patient has been treated with amiodarone therapy and had undergone 2 cardioversions. The patient otherwise is reporting being compliant with her medications. [facility] Medical History Paroxysmal atrial fibrillation Atrial flutter Persistent atrial fibrillation New onset a-fib Obesity Hypertension Surgical History History of nephrectomy, left Hx of cholecystectomy Family History Mother No problems noted. Father No problems noted. Social History Housing: House Alcohol intake: never Patient Tobacco Use Status: Never used Tobacco e-Cigarette/Vaping Use: Never Used Second Hand Smoke Exposure: No service: No Current occupational status: retired Cognitive needs: No Hearing needs: Yes Vision needs: No Review of Systems Const Denies weakness ENT Denies dizziness Card Denies chest pain, Denies chest pain with activity, Denies syncope, Denies rapid heart rate, Denies pedal edema, Denies edema, Denies leg edema, Denies lightheadedness, Denies palpitations, Denies dyspnea, Denies dyspnea on exertion and Denies orthopnea Resp Denies cough, Denies dyspnea and Denies dyspnea on exertion GI Denies hematochezia and Denies change in stool character Musc Denies abnormal gait, Denies muscle cramps, Denies muscle weakness, Denies numbness, Denies radiating pain into limb and Denies tingling Neuro Denies abnormal gait, Denies dizziness, Denies syncope, Denies numbness, Denies tingling and Denies weakness Endo Denies palpitations Physical Exam Vital Signs: Last Vital Signs Pulse 91 12/18/24 14:36 BP 128/68 12/18/24 14:36 BMI result Body Mass Index 24.4 Const General: cooperative, healthy appearing, comfortable and no acute distress Orientation/consciousness: patient oriented x3 HEENT Head: Yes normal to inspection Neck Neck: Yes normal visual inspection, Yes trachea midline and Yes supple Chest Chest palpation & inspection: normal inspection of the chest Resp Effort & Inspection: normal respiratory effort Auscultation: clear to auscultation bilaterally, no crackles, no rales, no rhonchi and no wheezes Cardio Jugular venous distension: no JVD Palpation: normal PMI Rhythm: abnormal rhythm irregularly irregular Heart sounds: S1 normal heart sound present, S2 normal heart sound present, no click, no gallops, no murmurs and no rubs Peripheral pulses: Peripheral pulses 2+ throughout GI Inspection: Yes normal to inspection Palpation (GI): Soft to palpation Auscultation: normal bowel sounds Skin General skin exam: no rashes or lesions noted Neuro General: patient oriented x3 Extrem General: Yes normal to inspection, No no pedal edema and No calf tenderness Psych Appearance: grossly normal Mental Status: mental status grossly normal Speech and movement: Normal speech and movement present Office Procedures EKG Details: EKG today shows AFib, rate 91 beats per minute, right bundle branch block, nonspecific [place], [place] [id number], Complete Assessment & Plan Assessment & Plan (1) (HFpEF) heart failure with preserved ejection fraction: Code(s): I50.30 - Unspecified diastolic (congestive) heart failure Category: Medical (2) Paroxysmal atrial fibrillation: Code(s): I48.0 - Paroxysmal atrial fibrillation Category: Medical (3) Hypertension: Code(s): I10 - Essential (primary) hypertension Category: Medical Plan 07/02/2024-echo study showed a normal EF 65-70% with grade 3 diastolic dysfunction, moderately dilated left atrium. Today's EKG showed AFib. Patient is asymptomatic with this. We will start metoprolol XL for rate control approach. Continue Eliquis for full anticoagulation therapy. In case of patient developing symptoms with this then we will have to pursue antiarrhythmic approach with cardioversion. We will get a Holter monitor to assess the rate and evaluate the AFib burden. Blood pressure today is well-controlled. Ideally blood pressure less than 130/80. Continue lisinopril therapy. Most recent LDL at 53, Continue statin therapy. Ideally LDL less than 70. Advised heart healthy diet, regular exercise, aggressive management vascular risk factors. Patient will follow-up in 6 weeks. In the interim, patient will call us with any concerns or change in symptoms. This note was generated using voice recognition software. While every effort has been made to ensure accuracy and proper wrecking supervisor, there may be occasional errors that could affect the content or meaning of the described symptoms. Orders: Orders ECG 3 day holter monitor 2 Weeks I48.0 - Paroxysmal atrial fibrillation AMB EKG-In Office Today I48.0 - Paroxysmal atrial fibrillation Medications: New metoprolol succinate ER 50 mg PO DAILY 90 tabs 1RF Refilled lisinopril 40 mg PO DAILY 90 tabs 2RF atorvastatin 20 mg PO DAILY 90 tabs 8RF apixaban (Eliquis) 5 mg PO BID 180 tabs 3RF 90 days Coding Level of Care Code Est Pt Level 4 (41075) Complex EM visit Add On G2211 Diagnoses (HFpEF) heart failure with preserved ejection fraction I50.30 Paroxysmal atrial fibrillation I48.0 Hypertension I10 CPT Codes EKG - CPT: 93212-[id number], Complete ([id number]) Time Spent (min) 35 Comment Time spent in reviewing the chart, test results, assessment, counseling and documentation.
[2024-12-18 14:36] VITALS: BP 128/68; PULSE 91; BMI 24.4
--- OUTSIDE RECORDS SUMMARY | 2024-12-18 16:52 | XMS_ITS | Patient Health Record ---
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) Rectocele without mention of uterine prolapse (618.04) Active confirmed Diag Problem Uterine prolapse without vaginal wall prolapse (94886169) Uterine prolapse without mention of vaginal wall prolapse (618.1) Active confirmed Diag Problem Menopausal symptom (10649319) Symptomatic menopausal or female climacteric states (627.2) Active confirmed Major Problem Gynecological examination normal (452098230670463) Routine gynecological examination (V72.31) Active confirmed Major Problem Screening for malignant neoplasm of colon (462257235) Special screening for malignant neoplasms, colon (V76.51) Active confirmed Major Plan Of Treatment No Information Insurance Providers Payer Name Payer Address Payer Phone Subscriber Number Group Number Insured Name Patient Relationship to Insured Coverage Start Date Coverage End Date [facility] MEDICARE ADVANTAGE [address] [facility] [address] [place] [address] [id number] NICO MOYER Self - patient is the insured
--- OUTSIDE RECORDS SUMMARY | 2024-12-18 16:52 | XMS_ITS | Data Portability ---
Author Organization [place] [facility] Address [address] [place] [address] Care Team Providers Care Eap Specialist Name Role Phone SHADEBISI POZO Primary Care Provider [phone] DENTONJOSH OTHER Assessment Encounter Date Assessment Date Assessment LastModified by Organization Details LastModified Time 04/24/2023 04/24/2023 Time On Scene with Patient: 00:48:27 [email or web address] Not available 04/24/2023 13:04:24 04/24/2023 04/24/2023 Brief Overview: 82 year old F with previous medical history of afib, htn and L nephrectomy with cc today of clarissa hematuria that started 3 days ago. 2 weeks ago pt had cardioversion for afib and was subsequently placed on eliquis, amiodarone and lasix. Denies abd pain, flank pain, dysuria, odor, frequency, urgency, fevers, flu like sx. New to provider and DH. Spoke with mis specialist office at 1300 regarding patient. Pt with GFR of 56 on 04/09/23 Vital Signs: 96.9 ??F ear (36.06 C) 65 62 158 / 76 [id number] / 68 Abnormal repeat 16 94 % Room Air at Rest Exam: Alert and oriented. Ambulatory with steady gait, pleasant. Cardiac: RRR, no murmurs. Lungs: CTA, no wheezing or coughing. GI: soft, grossly non tender, no CVAT DDx considered, with rationale: Hematuria- possible as SE to eliquis- renal or urethral bleeding UTI- unlikely without dysuria, urgency, odor, frequency but possible with pos dip Anemia- not likely without dizziness, constant clarissa bleeding GIB- not likely without c/o N/V, melena, hematemesis Proper Personal Protective Equipment (PPE), including gloves, eye protection and masks were donned and doffed appropriately and all equipment cleaned using approved technique with germicidal disposable wipes prior to and after care of this patient according to [facility]'s infection prevention protocols. [email or web address] Not available 04/24/2023 13:19:05 Plan of Treatment Reminders Order Date Submit Date Provider Last Modified By Organization Details Last Modified Time Details Appointments None recorded. Lab urinalysis , dipstick 2022 023 [email or web address] Spr - Home, [address], [place], [address], 13:29:00 culture, urine 2022 023 TRISTON [facility] (Centralized Electronic Ordering - All Locations), Patient Can Go To The Location Of Their Choice, [id number] 09:21:13 Referral None recorded. Procedures None recorded. Surgeries None recorded. Imaging None recorded. Medication Orders None recorded. Patient TargetsNo targets recorded. Patient Instructions Encounter Date Encounter Id Patient Instructions Last Modified By Organization Details Last Modified Time 04/24/2023 [id number] BASIC INFORMATIO N Urinary tract infections(UTI) can involve any portion of the urinary tract. The most common presentation is a bladder infection/cystitis, which usually presents with urinary frequency, burning with urination, urgency, foul smelling cloudy urine and occasionally blood. Kidney infections are less frequent, but more serious, and present with fever, flank pain, malaise and sometimes shaking chills. UTI? s are common in women because of the female anatomy, and much less common in males. INSTRUCTIONS Drink plenty of fluid, water is best. Drinking fluids will help to flush the bacteria from your body. Urinate every 2-3 hours Wear cotton underwear and avoid Nylon, Spandex and Lycra which tend to trap moisture and thong underwear which may facilitate UTI? s. Avoid tub baths Avoid using Super Tampons Use only mild unscented soap to wash your genitals, such as Dove or Ivory, avoid heavily scented body washes. If you are sexually active urinate as soon as possible after intercourse. Yogurt and probiotics may help to establish a more healthy genital environment, and aid in prevention. MEDICATIONS 1.Antibiotics: Usually prescribed if you have a UTI, there are many different effective antibiotics available. It is important that you complete the course of antibiotics you are given. You should feel some improvement within 24-48 hours, if you do not it may be that the bacteria causing your infection is resistant to the prescribed medication. If a urine culture is obtained it will usually take at least 3-4 days to get the final result. 2. Anesthetic/Pain relievers: Phenazopyridine (Pyridium, Uribelle, AZO) is an anesthetic excreted in the urine. This medicine will turn your urine BRIGHT ORANGE! This is normal, and may stain your underwear can contacts. Take this medication as directed with food. 3. Tylenol and Ibuprofen can be helpful for the pain, fever and body aches that can be associated with a kidney infection. Please follow recommended dosing instructions on the bottle. FOLLOW UP 1. If your symptoms are not improving in 24-48 hours 2. If your symptoms are getting more severe 3. Any unusual vaginal discharge 4. Symptoms recur after you complete medication SEEK CARE IMMEDIATELY IF 1.You have shaking chills or temperature over 101.5 2. Severe flank pain 3. Persistent vomiting, unable to keep fluids or medicine down. 4. Worse despite medication. If you develop any new or worsening symptoms and need after hours care, please go to nearest ER and/or call 911. If you have additional concerns or develop a change in your condition between 8am-10pm, please call [facility] at [phone] to help navigate your care. [email or web address] Not available 04/24/2023 12:27:00 Reason for Referral None Reported. Results Created Date Observation Date Name Description Value Unit Range Abnormal Flag Note LastModifiedBy Organization Detail LastModifiedTime 04/24/2004/25/2023 URINE CULTU RE specimen description CLEAN CATCH (URINE ) Not Available [facility] (Centralized Electronic Ordering - All Locations) Patient Can Go To The Location Of Their Choice, 04/27/2023 08:19:29 04/24/2004/25/2023 URINE CULTU RE special requests NONE Not Available [facility] (Centralized Electronic Ordering - All Locations) Patient Can Go To The Location Of Their Choice, [id number] 04/27/2023 08:19:29 04/24/2004/27/2023 URINE CULTU RE culture abnormal >100, 000 COL/M L ESCHE LUIS A COLI These AST resul ts were perfo rmed on the Micro scan ID and AST syste m Not Available [facility] (Centralized Electronic Ordering - All Locations) Patient Can Go To The Location Of Their Choice, 04/27/2023 08:19:29 04/24/2004/27/2023 URINE CULTU RE report status FINAL 2022 Not Available [facility] (Centralized Electronic Ordering - All Locations) Patient Can Go To The Location Of Their Choice, 04/27/2023 08:19:29 04/24/2004/27/2023 URINE CULTU RE organism ORGAN ISM >100, 000 COL/M L ESCHE LUIS A COLI These AST resul ts were perfo rmed on the Micro scan ID and AST syste m Not Available [facility] (Centralized Electronic Ordering - All Locations) Patient Can Go To The Location Of Their Choice, 04/27/2023 08:19:29 04/24/2004/27/2023 URINE CULTU RE method METHOD MIN. INHIB. CONC. (MCG/M L) Not Available [facility] (Centralized Electronic Ordering - All Locations) Patient Can Go To The Location Of Their Choice, 04/27/2023 08:19:29 04/24/2004/27/2023 URINE CULTU RE amoxicillin/ clavulanic acid AMOXIC ILLIN/ CLAVUL AN SUSCEP TIBLE susceptib le Not Available [facility] (Centralized Electronic Ordering - All Locations) Patient Can Go To The Location Of Their Choice, 04/27/2023 08:19:29 04/24/2004/27/2023 URINE CULTU RE ampicillin AMPICI LLIN SUSCEP TIBLE susceptib le Not Available [facility] (Centralized Electronic Ordering - All Locations) Patient Can Go To The Location Of Their Choice, 04/27/2023 08:19:29 04/24/2004/27/2023 URINE CULTU RE ampicillin/s ulbactam AMPICI LLIN/S ULBACT AM SUSCEP TIBLE susceptib le Not Available [facility] (Centralized Electronic Ordering - All Locations) Patient Can Go To The Location Of Their Choice, 04/27/2023 08:19:29 04/24/2004/27/2023 URINE CULTU RE cefazolin CEFAZO ASHLYN SUSCEP TIBLE susceptib le Not Available [facility] (Centralized Electronic Ordering - All Locations) Patient Can Go To The Location Of Their Choice, 04/27/2023 08:19:29 04/24/2004/27/2023 URINE CULTU RE cefepime CEFEPI ME SUSCEP TIBLE susceptib le Not Available [facility] (Centralized Electronic Ordering - All Locations) Patient Can Go To The Location Of Their Choice, 04/27/2023 08:19:29 04/24/2004/27/2023 URINE CULTU RE ceftriaxone CEFTRI AXONE SUSCEP TIBLE susceptib le Not Available [facility] (Centralized Electronic Ordering - All Locations) Patient Can Go To The Location Of Their Choice, 04/27/2023 08:19:29 04/24/2004/27/2023 URINE CULTU RE ciprofloxaci n CIPROF LOXACI N SUSCEP TIBLE susceptib le Not Available [facility] (Centralized Electronic Ordering - All Locations) Patient Can Go To The Location Of Their Choice, 04/27/2023 08:19:29 04/24/2004/27/2023 URINE CULTU RE ertapenem ERTAPE NEM SUSCEP TIBLE susceptib le Not Available [facility] (Centralized Electronic Ordering - All Locations) Patient Can Go To The Location Of Their Choice, 04/27/2023 08:19:29 04/24/2004/27/2023 URINE CULTU RE gentamicin GENTAM ICIN SUSCEP TIBLE susceptib le Not Available [facility] (Centralized Electronic Ordering - All Locations) Patient Can Go To The Location Of Their Choice, 04/27/2023 08:19:29 04/24/2004/27/2023 URINE CULTU RE levofloxacin LEVOFL OXACIN SUSCEP TIBLE susceptib le Not Available [facility] (Centralized Electronic Ordering - All Locations) Patient Can Go To The Location Of Their Choice, 04/27/2023 08:19:29 04/24/2004/27/2023 URINE CULTU RE meropenem MEROPE NEM SUSCEP TIBLE susceptib le Not Available [facility] (Centralized Electronic Ordering - All Locations) Patient Can Go To The Location Of Their Choice, 04/27/2023 08:19:29 04/24/2004/27/2023 URINE CULTU RE nitrofuranto in NITROF URANTO IN SUSCEP TIBLE susceptib le Not Available [facility] (Centralized Electronic Ordering - All Locations) Patient Can Go To The Location Of Their Choice, 04/27/2023 08:19:29 04/24/2004/27/2023 URINE CULTU RE piperacillin /tazobactam PIPERA CILLIN /TAZOB AC SUSCEP TIBLE susceptib le Not Available [facility] (Centralized Electronic Ordering - All Locations) Patient Can Go To The Location Of Their Choice, 04/27/2023 08:19:29 04/24/2004/27/2023 URINE CULTU RE tetracycline TETRAC YCLINE SUSCEP TIBLE susceptib le Not Available [facility] (Centralized Electronic Ordering - All Locations) Patient Can Go To The Location Of Their Choice, 04/27/2023 08:19:29 04/24/2004/27/2023 URINE CULTU RE trimeth/sulf amethox TRIMET H/SULF AMETHO X SUSCEP TIBLE susceptib le Not Available [facility] (Centralized Electronic Ordering - All Locations) Patient Can Go To The Location Of Their Choice, 04/27/2023 08:19:29 04/24/2004/24/2023 urina lysis , dipst ick Appearance dark Not Available [facility] [place] [address] [place], [address], 04/24/2023 12:56:37 04/24/20 23 04/24/2023 urina lysis , dipst ick Color bloody Not Available [facility] - Home [address] [place], [address], 04/24/2023 12:56:37 04/24/20 23 04/24/2023 urina lysis , dipst ick Glucose (ref: neg) Neg Not Available [facility] - Home [address] [place], [address], 04/24/2023 12:56:37 04/24/20 23 04/24/2023 urina lysis , dipst ick Bilirubin (ref: neg) Neg Not Available [facility] - Home [address] [place], [address], 04/24/2023 12:56:37 04/24/20 23 04/24/2023 urina lysis , dipst ick Ketones (ref: neg) Neg Not Available [place] [address] [place], [address], 04/24/2023 12:56:37 04/24/20 23 04/24/2023 urina lysis , dipst ick Specific [place] (ref: 1.005 - 1.030) 1.010 Not Available [place] [address] [place], [address], 04/24/2023 12:56:37 04/24/20 23 04/24/2023 urina lysis , dipst ick Blood (ref: neg) +++ Not Available [place] [address] [place], [address], 04/24/2023 12:56:37 04/24/20 23 04/24/2023 urina lysis , dipst ick pH (ref: 5.0-7.0) 5.0 Not Available [place] [address] [place], [address], 04/24/2023 12:56:37 04/24/20 23 04/24/2023 urina lysis , dipst ick Protein (ref: neg) Neg Not Available [place] [address] [place], [address], 04/24/2023 12:56:37 04/24/20 23 04/24/2023 urina lysis , dipst ick Urobilinogen (ref: 0.2-1) 0.2 Not Available [place] [address] [place], [address], 04/24/2023 12:56:37 04/24/20 23 04/24/2023 urina lysis , dipst ick Nitrites (ref: neg) positi ve Not Available [place] [address] [place], [address], 04/24/2023 12:56:37 04/24/20 23 04/24/2023 urina lysis , dipst ick Leukocytes (ref: neg) ++ Not Available [facility] - Home [address] [place], [address], 04/24/2023 12:56:37 04/24/20 23 04/24/2023 urina lysis , dipst ick Location [facility], [facility], [address] [place] [address], [id number] [phone] Not Available [facility] - Home [address] [place] [address], [phone], 04/24/2023 12:56:37 Result Notes None recorded. Procedures Surgical History Date Name Laterality Status Provider Name and Address Organization Details Recorded Time partial nephrectomy completed Caprice Ramos NP [address] [place] [address], [phone], [place] [facility] 04/24/2023 12:22:57 Cholecystectomy completed Belén Ramos NP [address] [place] [address], [address], [place] [facility] 04/24/2023 12:23:11 Imaging Results None recorded. Procedure Notes None recorded. Medical Equipment None Reported. Allergies Allergen ID Allergen Name Allergen Category Reaction Reaction Severity Criticality Documentation Date Start Date Code Code System Note Provider Name and Address Organization Details Recorded Time [id number] Keflex medicatio n rash Not available low 04/24/2023 82272 7 RxNorm Belén Ramos NP [address] [place] [address], [phone], [place] [facility] 12:26:28 Medications Name Sig Start Date Stop Date Status Note LastModified by Organization Details LastModified Time furosemide 40 mg tablet TAKE ONE TABLET BY MOUTH EVERY DAY active Not Available Not Available No t Available atorvastatin 20 mg tablet TAKE 1 TABLET BY MOUTH DAILY. active Not Available Not Available No t Available amiodarone 200 mg tablet TAKE ONE TABLET BY MOUTH EVERY 24 HOURS active Not Available Not Available No t Available atenolol 25 mg tablet TAKE ONE TABLET BY MOUTH DAILY; DOSE ADJUSTMENT. active Not Available Not Available Not Available amiodarone 400 mg tablet TAKE 1 TABLET BY MOUTH TWICE A DAY FOR 14 DAYS; THIS IS YOUR LOADING DOSE OF AMIODARONE TO TAKE 2 WEEKS BEFORE CARDIOVERSI ON)). active Not Available Not Available No t Available lisinopril 40 mg tablet TAKE ONE TABLET BY MOUTH EVERY DAY active Not Available Not Available No t Available atenolol 50 mg tablet TAKE 1 TABLET BY MOUTH DAILY DOSE ADJUSTMENT) . active Not Available Not Available No t Available nitrofuranto in monohydrate/ macrocrystal s 100 mg capsule TAKE ONE CAPSULE BY MOUTH EVERY 12 HOURS FOR 5 DAYS active Not Available Not Available N ot Available cholecalcife rol (vitamin D3) 50 mcg (2,000 unit) tablet TAKE ONE TABLET BY MOUTH EVERY DAY active Not Available Not Available No t Available Eliquis 5 mg tablet TAKE ONE TABLET BY MOUTH TWICE A DAY active Not Available Not Available No t Available Vitals Date Recorded Heart rate Respiratory rate Body temperature Oxygen saturation Oxygen saturation in Arterial blood by Pulse oximetry Heart rate Oxygen saturation Oxygen saturation in Arterial blood by Pulse oximetry Respiratory rate Systolic blood pressure Diastolic blood pressure Systolic blood pressure Diastolic blood pressure Provider Name and Address Organization Details Last Updated DateTime 3 65 /min 16 /min 96.9 [degF] 94 % 94 % 62 /min 93 % 93 % 16 /min 158 mm[Hg] 76 mm[Hg] 146 mm[Hg] 68 mm[Hg] Not Available [facility] 3 12:57:21 Social History Question Answer Notes LastModified by Organizat ion Details LastModified Time Tobacco Smoking Status Never Smoker Belén Ramos NP [address] [place], [address], [place] [facility] 04/24/2023 12:23:38 Do You Have An Advance Directive? Yes [email or web address] Information not available 04/24/2023 What Is Your Level Of Alcohol Consumption? None [email or web address] Information not available 04/24/2023 What Is Your Code Status? Full Code [email or web address] Information not available 04/24/2023 Within The Past 12 Months, Has It Happened That The Food You Bought Just Didn't Last And You Didn't Have Money To Get More. Never True [email or web address] Information not available 04/24/2023 Within The Past 12 Months, Have You Worried That Your Food Would Run Out Before You Got Money To Buy More. Never True [email or web address] Information not available 04/24/2023 Fall Risk: Do You Feel Unsteady When Standing Or Walking? Yes [email or web address] Information not available 04/24/2023 Excessive Alcohol Or Drug Use No [email or web address] Information not available 04/24/2023 Does This Patient Have A PCP? Yes [email or web address] Information not available 04/24/2023 Has The Patient Seen Their PCP In The Past 6 Months? Yes [email or web address] Information not available 04/24/2023 Is This Patient In Hospice? No [email or web address] Information not available 04/24/2023 ADL: Do You Need Help With Daily Activities Such As Bathing, Preparing Meals, Dressing, Or Cleaning? No [email or web address] Information not available 04/24/2023 Social Support: Do You Feel Safe? Yes Information no t available 04/24/2023 We Know From Many Of Our Patients That Covering All Of Their Costs Can Be Difficult At Times. This Can Cause Stress And Impact Health. In The Past Year, Have You Been Unable To Get Any Of The Following When It Was Really Needed? No [email or web address] Information not available 04/24/2023 Do You Use Any Illicit Or Recreational Drugs? No Information not available 04/24/2023 Has Tobacco Cessation Counseling Been Provided? No [email or web address] Information not available 04/24/2023 Do You Or Have You Ever Used Any Other Forms Of Tobacco Or Nicotine? No Information not available 04/24/2023 Sex: Unknown Functional Status None recorded. Mental Status None recorded. Family History Relationship Description Onset Age of this Age Resolved Age Notes LastModified by Organization Details LastModified Time Father No current problems or disability [email or web address] Not available 04/24 12:23:28 Mother No current problems or disability [email or web address] Not available 04/24 12:23:29 Medical History Condition Response Hypertension Y A-fib Y Kidney Disease Gynecological HistoryNo gynecological history recorded. Obstetrics History GPAL:G 0 P 0 0 0 0 Past Encounters Encounter ID Performer Location Encounter Start Date Encounter Closed Date Diagnosis/Indication Diagnosis SNOMED-CT Code Diagnosis ICD10 Code Diagnosis Note [id number] Belén Ramos NP [facility] [address] [facility] [place], [place] [address] 04/24/2023 12:03:49 05/22/2023 17:03:51 Acute cystitis 74803941 N30.01 Status of condition: {{Acute* E xacerbatio n/Acute on chronic Ch ronic Stab le Worseni ng/Progres joaquim Uncon trolled Cr itical: Warrants escalation to ED. Undete rmined: Unclear staging of condition. Needs further evaluation and management by PCP and/or Specialist }}.Testing /Results: UA pos for nitrites, leuks, blood Discussion :Pt does have evidence of UTI on UA, however, does not have typical UTI sx. is without dysuria, odor, frequency, urgency, flank pain. Unable to determine if hematuria is secondary to newly started eliquis as renal or urethral bleeding or secondary to UTI. Hematuria has improved since pt stopped her eliquis. pt is also currently with stable vs and exam. Discussed case with RN at cardio office and also verified most recent GFR is 56 on 04/09/23. RN to speak with cardiologi st regarding re- starting eliquis at lower dose (possibly) and will send off culture to confirm UTI. Advised to continue to push fluids. If pt develops clarissa bleeding that does not stop, dizziness, clots to go to the ED for renal US. No history of recurrent UTIs Plan, Medication Management & Follow-up recommenda tions:Hold off on abx unless culture comes back. If pos and S to macrobid, consider as patient is allergic to keflex. Is on TAWANNA I, bactrim likely not appropriat e but possible to use if needed.Car diologist to call back pt today to discuss further treatment and re- starting eliquisNo emergent indication s for escalation based off vital sign review and exam. Handwritte n discharge papers completed and provided to patient. All questions answered. Essential hypertension [id number] I10 Status of condition: {{Acute Ex acerbation /Acute on chronic Ch ronic* Sta ble Worsen ing/Progre ssion Unco ntrolled C ritical: Warrants escalation to ED. Undete rmined: Unclear staging of condition. Needs further evaluation and management by PCP and/or Specialist }}. Testing/Re sults: Discussion : Slightly elevated on second reading without aneurysm history. Continue to take current meds and f/u with cardiologi st. No c/o GARVEY, SOB, weakness. Plan, Medication Management & Follow-up recommenda tions: Chronic at rial fibrillation 241424168 I48.20 Status of condition: {{Acute Ex acerbation /Acute on chronic Ch ronic* Sta ble Worsen ing/Progre ssion Unco ntrolled C ritical: Warrants escalation to ED. Undete rmined: Unclear staging of condition. Needs further evaluation and management by PCP and/or Specialist }}. Testing/Re sults: Discussion : Pt currently not in afib, is NSR with auscultati on. Discussed patients choice to stop eliquis with RN at cardio office, RN is going to speak with cardio to determine next course of action/ plan of care. Relayed message to patient and advised pt to clam picker phone when cardiologi st calls or listen to messages. Plan, Medication Management & Follow-up recommenda tions: [id number] Belén Ramos NP [facility] - HOME [address] [place] [address] 04/24/2023 12:19:40 04/25/2023 14:18:37 Health Concerns Section Related Observation LastModified by Organization Detai ls LastModified Time None Recorded Concern Status LastModified by Organization Details LastModified Time None Recorded Advance Directives Directive Y: Payers Encounter Date Sequence Insurance Name Policy Number Policy Guadalupe Covered Member ID Guadalupe Member ID Guarantor Name 04/24/2023 1 *SELF PAY* [id number] Kathyate Yolanda NEED M[facility] ID PRIMARY Andra Burns 04/24/2023 1 *SELF PAY* [id number] Kathyate Yolanda NEED [facility] ID PRIMARY Andra Burns Notes Date Note Type Note Provider Name and Address Organization Details Recorded Time 04/24/2023 text/html Pt states hematu armaan started 03/23/23. Pt states hematuria is intermittent worse at night and in the AM. Not clots, urine is bright right. Eating and drinking okay. Pt also recently (thinks around 2 weeks ago) on eliquis, amiodarone and lasix. Pt states she had cardioversion due to afib on 04/11/23. Pt states she stopped her eliquis the past few days due to being nervous about bleeding.Denies dysuria, frequency, urgency, urinary odor, flank pain, abd pain, bloody stool. per cardiology office 04/09/23, GFR 53 Belén Ramos NP [address], [place], [address], [place] [facility] 04/24/2023 13:30:02 04/24/2023 text/html duplicate chart Belén neely NP [address], [place], [address], [place] [facility] 04/24/2023 15:13:38 OBGyn Episode No OBEpisode recorded.
== END 2024-12-18 15:11 | disposition home or self-care (01) ==
PROVIDERS: PCP Internal Medicine
DX: I50.30 Unspecified diastolic (congestive) heart failure (principal); I48.0 Paroxysmal atrial fibrillation; I10 Essential (primary) hypertension
CPT/HCPCS: 93010; 99214; G2211

== ENCOUNTER → 2024-12-18 13:50 | Outpatient (BNVA) | payer MEDICARE, SELFPAY | PROVIDERS: PCP Internal Medicine | DX: I48.0 Paroxysmal atrial fibrillation (principal); I11.0 Hypertensive heart disease with heart failure; I50.30 Unspecified diastolic (congestive) heart failure; E78.5 Hyperlipidemia, unspecified | CPT/HCPCS: 93005; 99212 ==

== ENCOUNTER 2024-12-25 10:44 | Outpatient (AMB) | payer MEDICARE, SELFPAY ==
[2024-12-25 10:55] VITALS: BP 138/88; PULSE 80; O2SAT 94; BMI 25.2
--- NOTE | 2024-12-25 10:55 | A.OFFVIS_ITS ---
Intake Vital Signs 12/25/24 10:55 Height 5 ft 3 in Weight 142 lb BMI 25.2 BP 138/88 Blood Pressure Location Lt brachial Position Sitting Pulse 80 Pulse Source Pulse Oximeter Pulse Oximetry (%) 94 Oxygen Delivery Method Room Air Intake Visit Reasons: AWV Allergies cephalexin Allergy (Intermediate, Verified 12/25/24 10:56) Rash HPI AWV HPI Details hyperlipidemia hypertension Afib on rx; seeing cardiology COUNTS INCLUDE 234 BEDS AT THE [facility] Medical History Paroxysmal atrial fibrillation Atrial flutter Persistent atrial fibrillation New onset a-fib Obesity Hypertension Surgical History History of nephrectomy, left Hx of cholecystectomy Family History Mother No problems noted. Father No problems noted. Social History Housing: House Alcohol intake: never Patient Tobacco Use Status: Never used Tobacco e-Cigarette/Vaping Use: Never Used Second Hand Smoke Exposure: No service: No Current occupational status: retired Cognitive needs: No Hearing needs: Yes Vision needs: No Questionnaire Medicare Wellness Checkup What is your age?: 79 or older What gender do you identify with?: female During the past 4 weeks, how much have you been bothered by emotional problems such as feeling anxious, depressed, irritable, sad or downhearted, and blue?: quite a bit During the past 4 weeks, has your physical & emotional health limited your social activities with family, friends, neighbors, or groups?: not at all During the past 4 weeks, how much bodily pain have you generally had?: no pain During the past 4 weeks, was someone available to help you if you needed & wanted help?: no, not at all During the past 4 weeks, what was the hardest physical activity you could do for at least 2 minutes?: moderate Can you get to places out of walking distance without help? (For eg., can you travel alone on buses, taxis or drive your car?): No Can you go shopping for groceries or clothes without someone's help?: No Can you prepare your own meals?: Yes Can you do your housework without help?: Yes Because of any health problems, do you need the help of another person with your personal care needs such as eating, bathing, dressing or getting around the house?: No Can you handle your own money without help?: Yes During the past 4 weeks, how would you rate your health in general?: fair During the past 4 weeks how have things been going for you?: good & bad parts about equal Are you having difficulties driving your car?: no Do you always fasten your seat belt when you are in a car?: yes, usually During past 4 weeks, have you been bothered by the following: never: Falling or dizzy when standing up, Sexual problems?, Trouble eating well?, Teeth or denture problems? and Problems using the telephone? and often: Tiredness or fatigue? Have you fallen 2 or more times in the past year?: No Are you afraid of falling?: Yes Are you a smoker?: no During the past 4 weeks, how many drinks of wine, beer, or other alcoholic beverages did you have?: no alcohol at all Do you exercise for about 20 minutes 3 or more times a week?: no, I usually do not exercise this much Have you been given information to help with the following?: no: Hazards in your house that might hurt you? and no: Keeping track of your medications? How often do you have trouble taking medicines the way you have been told to take them?: I always take medicine as prescribed How confident are you that you can control & manage most of your health problems?: very confident What is your race?: White Mini Mental State Exam (MMSE) Orientation What is the (year) (season) (date) (day) (month)?: year, season, date and month Where are we (state) (county) (town or city) (hospital) (floor)?: state and county Registration Name of 3 unrelated objects clearly and slowly, then ask patient to repeat all 3 of them. (1st repeat determines score. Make sure they can repeat all three): object 1, object 2 and object 3 Attention & Calculation (CHOOSE ONE) Ask pt to begin with 100 & count backward by 7. Stop after 5 repeats. If pt cannot ask them to spell the word WORLD backward.: 93 Spell WORLD backwards (DLROW): 2 letters Recall Ask patient to repeat the 3 items from question #3.: object 1 Score Score: 13 Activity of Daily Living Bathing - sponge bath, tub bath or shower: receives no assistance (gets in/out by self, if usual bathing means Dressing - getting clothes from closets & drawers, including inner/outer garments & fasteners.: gets clothes & gets completely dressed without help Toileting - going to the 'toilet room' for urine/bowel elimination & cleaning self/arranging clothes: goes to toilet room, cleans self, arranges clothes without help Transfer: moves in & out of bed and chair without help (may use support object) Continence: controls urination/bowel movements completely by self Feeding: feeds self without help Total Score: 0 Information obtained from: patient Using telephone: independent Traveling: independent Shopping: independent Preparing meals: independent Housework: independent Taking medicine: independent Managing money: independent PHQ-9 Over the last 2 weeks, how often have you been bothered by any of the following problems? 1. Little interest or pleasure in doing things: not at all 2. Feeling down, depressed, or hopeless: not at all 3. Trouble falling or staying asleep, or sleeping too much: several days 4. Feeling tired or having little energy: several days 5. Poor appetite or overeating: not at all 6. Feeling bad about yourself - or that you are a failure or have let yourself or your family down: not at all 7. Trouble concentrating on things, such as reading the newspaper or watching television: not at all 8. Moving or speaking so slowly that other people could have noticed. Or the opposite - being so fidgety or restless that you have been moving around a lot more than usual: not at all 9. Thoughts that you would be better off or of hurting yourself in some way: not at all Total score: 2 Depression Screening Interpretation: Positive Depression Screening Done: Yes 62107 - PHQ-9 Billing: Yes Source: Developed by Drs. Daniel Dickerson, Catrachita Broussard, Bigg Sotelo and colleagues, with an educational forrest from [employer]. Review of Systems Const Denies chills, Denies fatigue, Denies headache(s) and Denies weight loss Eyes Denies change in vision, Denies diplopia and Denies eye pain ENT Reports Normal hearing present, Denies vertigo, Denies dizziness, Denies headache(s) and Denies nasal discharge Card Denies chest pain, Denies rapid heart rate and Denies dyspnea on exertion Resp Denies chest congestion, Denies cough, Denies pain with cough and Denies dyspnea on exertion GI Denies abdominal pain, Denies hematochezia and Denies change in bowel habits Musc Denies myalgias, Denies arthralgias and Denies joint swelling Skin/Breast Denies lesions and Denies unusual bruising Neuro Reports Normal hearing present, Denies vertigo, Denies dizziness, Denies headache(s) and Denies focal weakness Endo Denies fatigue Physical Exam Vital Signs: Last Vital Signs Pulse 80 12/25/24 10:55 BP 138/88 12/25/24 10:55 Pulse Ox 94 12/25/24 10:55 Oxygen Delivery Method Room Air 12/25/24 10:55 BMI result Body Mass Index 25.2 Neuro Cranial nerves: Yes Normal hearing present Results AMB Hemoglobin A1c AMB Hemoglobin A1c 5.9 % Last Edit by Meredith Ramos CMA on 12/25/24 11 :09 Results Reviewed Results Reviewed: Laboratory Last Values Hgb A1c (Clinic) 5.9 % (4.0-6.0) 12/25/24 10:55 Assessment & Plan Assessment & Plan (1) Encounter for initial annual wellness visit (AWV) in Medicare patient: Code(s): Z00.00 - Encounter for general adult medical examination without abnormal findings Plan: all forms given to patient; normal Rhomberg and whisper tests (2) Diabetes mellitus with hyperglycemia: Code(s): E11.65 - Type 2 diabetes mellitus with hyperglycemia Plan: stable; same rx (3) Paroxysmal atrial fibrillation: Code(s): I48.0 - Paroxysmal atrial fibrillation Plan: stable; same rx (4) Hyperlipidemia: Code(s): E78.5 - Hyperlipidemia, unspecified Plan: stable; same rx (5) Hypertension: Code(s): I10 - Essential (primary) hypertension Plan: stable; same rx Orders: Orders AMB Hemoglobin A1c 12/25/24 Z13.9 - Encounter for screening, unspecified Quality Reporting (2019) Depression/Bipolar (159/160/161/177) PHQ-9: Total score: 2 Coding Level of Care Code Medicare First (G0438) Diagnoses Encounter for initial annual wellness visit (AWV) in Medicare patient Z00.00 Diabetes mellitus with hyperglycemia E11.65 Paroxysmal atrial fibrillation I48.0 Hyperlipidemia E78.5 Hypertension I10 CPT Codes Advance Care Planning - Advance Care Planning discussion: On file, no changes ([id number]) Additional Codes PHQ-9 - 10413 - PHQ-9 Billing: Yes ([id number]) Advance Care Planning Advance Care Planning discussion: On file, no changes Forms completed: Health Care Proxy
== END 2024-12-25 12:02 | disposition home or self-care (01) ==
LOC: HO.HMCH 10:45
PROVIDERS: PCP Internal Medicine; Visit Provider Internal Medicine
DX: Z13.9 Encounter for screening, unspecified (principal)

== ENCOUNTER → 2024-12-25 10:44 | Outpatient (BNVA) | payer MEDICARE, SELFPAY | PROVIDERS: PCP Internal Medicine; Visit Provider Internal Medicine | DX: Z00.00 Encounter for general adult medical examination without abnormal findings (principal); E11.65 Type 2 diabetes mellitus with hyperglycemia; I48.0 Paroxysmal atrial fibrillation; E78.5 Hyperlipidemia, unspecified; I10 Essential (primary) hypertension | CPT/HCPCS: 83036; 96127; 99212 ==

== ENCOUNTER → 2025-01-26 10:33 | Outpatient (REF) | payer MEDICARE, SELFPAY | LOC: HO.CARD 10:33 | PROVIDERS: PCP Physician Assistant; Visit Provider Internal Medicine Cardiovascular Disease | DX: I48.0 Paroxysmal atrial fibrillation (principal) | CPT/HCPCS: 93242 ==

== ENCOUNTER → 2025-01-26 10:36 | Outpatient (BNV) | payer MEDICARE, SELFPAY | PROVIDERS: PCP Physician Assistant; Visit Provider Internal Medicine | DX: I48.91 Unspecified atrial fibrillation (principal) | CPT/HCPCS: 93244 ==

== ENCOUNTER 2025-03-10 08:34 | Outpatient (REF) | payer MEDICARE, SELFPAY ==
--- NOTE | ~2025-03-10 | XR_ITS ---
EXAMINATION: XR CHEST CLINICAL INFORMATION: R06.02 - Shortness of breath COMPARISON: 06/02/2024, CT chest 07/25/2024. TECHNIQUE: 2 views of the chest were obtained. FINDINGS: Borderline cardiac enlargement. Mediastinal contours are normal. Prominence of the main pulmonary arteries in the hilar regions. Aortic mural calcifications. Lungs demonstrate mild hyperaeration. There is prominence of the background interstitial markings, similar to the prior exam. There is no focal pneumonic consolidation. There is no pneumothorax or pleural effusion. There is no focal osseous or soft tissue abnormality. Surgical clips noted in the epigastric region. There are spinal degenerative changes. XR/XR chest 2V IMPRESSION: 1. Diffuse prominence of the background interstitial markings, similar to the prior examination. Refer to the CT chest on 07/25/2024. 2. No focal pneumonic consolidation. 3. Diffuse prominence of the pulmonary arteries, could represent pulmonary arterial hypertension. Electronically signed by: Julio Cesar Escudero MD 03/10/2025 12:14 PM EDT
[2025-03-10 09:31] LABS: MANUAL DIFF FLAG NO
[2025-03-10 10:19] LABS: Basophils Absolute Auto 0.1 X10*3/uL (0.0-0.2); Basophils Percent Auto 0.9 % (0-2); Eosinophils Absolute Auto 0.4 X10*3/uL (0.0-0.4); Eosinophils Percent Auto 4.1 % (0-4); Hematocrit 41.5 % (37.0-47.0); Hemoglobin 12.9 g/dl (12.0-16.0); Imm Gran Abs Auto 0.06 X10*3/uL (0.00-0.03); Imm Gran Pct Auto 0.6 % (0.0-0.4); Lymphocytes Absolute Auto 1.5 X10*3/uL (1.2-4.9); Lymphocytes Percent Auto 14.9 % (20-40); Mean Corpuscular HGB Conc 31.1 g/dl (31.0-35.0); Mean Corpuscular Hemoglobin 24.9 pg (27.0-33.0); Mean Platelet Volume 10.2 fL (9.4-12.3); Monocytes Absolute Auto 0.9 X10*3/uL (0.1-1.2); Monocytes Percent Auto 9.3 % (2-11); Neutrophils Absolute Auto 6.9 x10*3/uL (2.0-8.3); Neutrophils Percent Auto 70.2 % (45-73); Platelet Count 260 X10*3/uL (160-400); Red Blood Count 5.19 X10*6/uL (4.20-5.50); Red Cell Distribution Width 18.6 % (11.0-16.0); White Blood Count 9.8 X10*3/uL (4.8-10.8)
[2025-03-10 10:46] LABS: Anion Gap 15 (12-20); Blood Urea Nitrogen 40 mg/dL (9-16); Calcium 9.4 mg/dL (8.4-10.2); Carbon Dioxide 21 mmol/L (22-29); Chloride 108 mmol/L (96-108); Estimated Glomerular Filt Rate 46; Glucose Random 127 mg/dL (60-115); Potassium 4.6 mmol/L (3.3-5.1); Sodium 139 mmol/L (135-145)
[2025-03-10 10:54] LABS: B Type Natriuretic Peptide 745 pg/mL (<100)
== END 2025-03-10 08:35 | disposition home or self-care (01) ==
LOC: HO.XRAY 08:34
PROVIDERS: PCP Physician Assistant; Visit Provider Nurse Practitioner Family
DX: R06.02 Shortness of breath (principal); I50.30 Unspecified diastolic (congestive) heart failure; I48.19 Other persistent atrial fibrillation; I10 Essential (primary) hypertension
CPT/HCPCS: 36415; 71046; 80048; 83880; 85025; 93005; 99212

== ENCOUNTER 2025-03-10 08:34 | Outpatient (AMB) | payer MEDICARE, SELFPAY ==
[2025-03-10 08:38] VITALS: BP 124/62; PULSE 72; BMI 25.9
--- NOTE | 2025-03-10 08:38 | MHC.OFFVIS ---
Vital Signs 03/10/25 08:38 Height 5 ft 3 in Weight 145 lb 15.136 oz BMI 25.9 BP 124/62 Blood Pressure Location Lt brachial Position Sitting Pulse 72 Pulse Source Monitor Intake Visit Reasons: 6wk follow up/EKG Motor Vehicle Light Assembler Required: No Balance Assembler: Balance Assembler Present Allergies cephalexin Allergy (Intermediate, Verified 12/25/24 10:56) Rash Medication List - Last Reconciled 03/10/25 by Caitlin Huber, SHOVEL LOGGER-C apixaban (Eliquis) 5 mg PO BID 90 days atorvastatin 20 mg PO DAILY blood sugar diagnostic (FreeStyle Lite Strips) Testing once a day as needed. blood-glucose meter (FreeStyle Lite Meter kit) As directed cholecalciferol (vitamin D3) 50 mcg PO DAILY lisinopril 40 mg PO DAILY metoprolol succinate ER 50 mg PO DAILY HPI HPI 6wk follow up/EKG: Details: Rsoie is an 84-year-old female with past medical history of hypertension, hyperlipidemia, diabetes, heart failure with preserved EF, paroxysmal atrial fibrillation which had been suppressed with amiodarone which was stopped due to abnormal findings on CT scan, then with recurrent AFib which has been persistent. Today she reports that she has been noticing some increased shortness of breath with activity in the last few months. She will feel heart palpitations at times with activity. When she is at rest she feels well with no concerning symptoms. She has not had any chest discomfort at rest or with activity. No PND, orthopnea or edema. No lightheadedness, presyncope, syncope, falls. Compliant with medications. She denies any bleeding issues. Son is present and assisting with translation. [facility] Medical History (Updated 03/10/25 @ 11:18 by Caitlin Huber, SHOVEL LOGGER-C) Persistent atrial fibrillation Paroxysmal atrial fibrillation Atrial flutter New onset a-fib Obesity Hypertension Surgical History History of nephrectomy, left Hx of cholecystectomy Family History Mother No problems noted. Father No problems noted. Social History Housing: House Alcohol intake: never Patient Tobacco Use Status: Never used Tobacco e-Cigarette/Vaping Use: Never Used Second Hand Smoke Exposure: No service: No Current occupational status: retired Cognitive needs: No Hearing needs: Yes Vision needs: No Review of Systems Const All systems reviewed & are unremarkable except as noted in HPI and below ENT Denies dizziness Card Denies chest pain, Denies chest pain at rest, Denies chest pain with activity, Denies rapid heart rate, Denies pedal edema, Denies edema, Denies leg edema, Denies lightheadedness, Denies palpitations, Reports dyspnea, Reports dyspnea on exertion and Denies orthopnea Resp Denies cough, Reports dyspnea and Reports dyspnea on exertion GI Denies hematochezia and Denies change in stool character Musc Denies abnormal gait, Denies limited range of motion, Denies muscle cramps, Denies muscle weakness, Denies numbness, Denies radiating pain into limb, Denies stiffness and Denies tingling Neuro Denies abnormal gait, Denies dizziness, Denies numbness and Denies tingling Endo Denies palpitations Physical Exam Vital Signs: Last Vital Signs Pulse 72 03/10/25 08:38 BP 124/62 03/10/25 08:38 BMI result Body Mass Index 25.9 Const General: cooperative, healthy appearing, comfortable and no acute distress Orientation/consciousness: patient oriented x3 Neck Neck: Yes normal visual inspection Resp Effort & Inspection: normal respiratory effort Auscultation: clear to auscultation bilaterally, no rales, no rhonchi and no wheezes Cardio Palpation: normal PMI Rhythm: abnormal rhythm irregularly irregular Heart sounds: S1 normal heart sound present, S2 normal heart sound present, no murmurs and no rubs Neuro General: patient oriented x3 Extrem General: Yes normal to inspection, No no pedal edema and No calf tenderness Psych Appearance: grossly normal Mental Status: mental status grossly normal Speech and movement: Normal speech and movement present Office Procedures EKG Details: Today, read by me, atrial fibrillation, RBBB, rate 72, JT index 106.25 [id number], Complete Assessment & Plan Assessment & Plan (1) SOB (shortness of breath) on exertion: Code(s): R06.02 - Shortness of breath Category: Medical Plan: Reports of shortness of breath with activity which is newer in the last few months. She does not appear fluid overloaded on exam however does have rales heard anteriorly and in the posterior bases. A CT scan of the chest done 07/25/2024 had findings suggesting interstitial lung disease. She had been on amiodarone which was then stopped. She also has persistent atrial fibrillation with can add to shortness of breath and a history of heart failure with preserved EF. Will check labs today including BMP, BNP, CBC, and obtain chest x-ray. Plan to call her with results and any changes to treatment plan. (2) Persistent atrial fibrillation: Code(s): I48.19 - Other persistent atrial fibrillation Category: Medical Plan: History of atrial fibrillation previously treated with rhythm control. She now has persistent atrial fibrillation. She has been on metoprolol XL 50 mg daily. Holter monitor done 01/26/2025 for 3 days shows atrial fibrillation with average heart rate 66 beats per minute, rare ventricular ectopy. EKG done today is showing atrial fibrillation with right bundle branch block, rate 72. She does feel occasional heart palpitations and some newer shortness of breath as above. Her shortness of breath may be related to the presence of atrial fibrillation but currently seems more likely related to lung issues as identified above. Evaluating with testing. Continue with rate control at present. Continue anticoagulation with Eliquis. (3) (HFpEF) heart failure with preserved ejection fraction: Code(s): I50.30 - Unspecified diastolic (congestive) heart failure Category: Medical Plan: As above. Last echocardiogram 07/02/2024 shows EF 65-70%, grade 3 diastolic dysfunction, moderately dilated left atrium, normal valves. (4) Hypertension: Code(s): I10 - Essential (primary) hypertension Category: Medical Plan: Blood pressure goal less than 130/80, normal at this time. No med changes made Plan I discussed with the patient the current stable AFib status and the need for additional testing to explore potential causes of her shortness of breath. The focus is on distinguishing between cardiac and pulmonary causes. I explained the rationale behind Metoprolol for heart rate control and the absence of immediate medication adjustments until further test results. She expressed understanding and agreed to have the recommended tests completed this week without needing appointments. I detailed follow-up plans, emphasizing that her condition would guide adjustments to her treatment plan. Consent was provided for the proposed diagnostics with awareness of potential observations and subsequent interventions. Orders: Orders Complete Blood Count Auto Diff Today R06.02 - Shortness of breath B Type Natriuretic Peptide Today R06.02 - Shortness of breath Basic Metabolic Panel Today R06.02 - Shortness of breath XR chest 2V Today I50.30 - Unspecified diastolic (congestive) heart failure, R06.02 - Shortness of breath Patient Instructions: - Continue taking Metoprolol as prescribed. - Undergo blood tests and chest X-ray as soon as possible. - Monitor and report any worsening of symptoms or new symptoms. - Keep hydrated and use rest as needed to manage fatigue and breathlessness. - Follow up in three months or as advised based on test findings. - Contact the clinic promptly if experiencing new chest pain, severe shortness of breath, or other concerning symptoms. Patient was informed and verbally consented to the use of an ambient scribe for clinic note documentation during this visit. Time spent on chart review, documentation, interview assessment Coding Level of Care Code Est Pt Level 4 (62445) Complex EM visit Add On G2211 Diagnoses SOB (shortness of breath) on exertion R06.02 Persistent atrial fibrillation I48.19 (HFpEF) heart failure with preserved ejection fraction I50.30 Hypertension I10 CPT Codes EKG - CPT: 30158-[id number], Complete ([id number]) Time Spent (min) 30
== END 2025-03-10 09:12 | disposition home or self-care (01) ==
LOC: HO.HCS 08:34
PROVIDERS: PCP Physician Assistant; Visit Provider Nurse Practitioner Family
DX: R06.02 Shortness of breath (principal); I48.19 Other persistent atrial fibrillation; I50.30 Unspecified diastolic (congestive) heart failure; I10 Essential (primary) hypertension
CPT/HCPCS: 93010; 99214; G2211

== ENCOUNTER → 2025-03-10 09:30 | Outpatient (BNV) | payer MEDICARE, SELFPAY | PROVIDERS: PCP Physician Assistant; Visit Provider Radiology Diagnostic Radiology | DX: I28.8 Other diseases of pulmonary vessels (principal) | CPT/HCPCS: 71046 ==

== ENCOUNTER 2025-03-23 13:12 | Outpatient (REF) | payer MEDICARE, SELFPAY ==
[2025-03-23 14:13] LABS: Anion Gap 13 (12-20); Blood Urea Nitrogen 35 mg/dL (9-16); Calcium 9.5 mg/dL (8.4-10.2); Carbon Dioxide 26 mmol/L (22-29); Chloride 106 mmol/L (96-108); Estimated Glomerular Filt Rate 52; Glucose Random 117 mg/dL (60-115); Potassium 4.9 mmol/L (3.3-5.1); Sodium 140 mmol/L (135-145)
[2025-03-23 14:14] LABS: B Type Natriuretic Peptide 904 pg/mL (<100)
--- OUTSIDE RECORDS SUMMARY | 2025-03-23 14:56 | XMS_ITS | Data Portability ---
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 Spoke with retail pos specialist office at 1300 regarding patient. Pt with GFR of 56 on 04/09/23 Vital Signs: 96.9 ??F ear (36.06 C) 65 62 158 / 76 [id number] / 68 Abnormal repeat 16 94 % [...] after care of this patient according to [facility]'s infection prevention protocols. [email or web address] Not available 04/24/2023 13:19:05 Plan of Treatment Reminders Order Date Submit Date Provider Last Modified By Organization Details Last Modified Time Details Appointments None recorded. Lab urinalysis , dipstick 2022 023 [email or web address] [facility], [address], [place], [address], 13:29:00 culture, urine 2022 023 [facility] (Centralized Electronic Ordering - All Locations), Patient Can Go To The Location Of Their Choice, [id number] 09:21:13 Referral None recorded. Procedures None recorded. Surgeries None recorded. Imaging None recorded. Medication Orders None recorded. Patient TargetsNo targets recorded. Patient Instructions Encounter Date Encounter Id Patient Instructions Last Modified By Organization Details Last Modified Time 04/24/2023 [id number] BASIC INFORMATIO N Urinary tract infections(UTI) can [...] condition between 8am-10pm, please call [facility] at [phone] to help navigate your care. [email or web address] Not available 04/24/2023 12:27:00 Reason for Referral [...] Go To The Location Of Their Choice, [id number] 04/27/2023 08:19:29 04/24/2004/27/2023 URINE CULTU RE culture [...] Not Available [facility] [address] [place], [address], 04/24/2023 12:56:37 04/24/20 23 04/24/2023 urina lysis , dipst ick Color bloody Not Available [facility] [address] [place], [address], 04/24/2023 12:56:37 04/24/20 23 04/24/2023 urina lysis , dipst ick Glucose (ref: neg) Neg Not Available [facility] [address] [place], [address], 04/24/2023 12:56:37 04/24/20 23 04/24/2023 urina lysis , dipst ick Bilirubin (ref: neg) Neg Not Available [facility] [address] [place], [address], 04/24/2023 12:56:37 04/24/20 23 04/24/2023 urina lysis , dipst ick Ketones (ref: neg) Neg Not Available [facility] [address] [place], [address], 04/24/2023 12:56:37 04/24/20 23 04/24/2023 urina lysis , dipst ick Specific [place] (ref: 1.005 - 1.030) 1.010 Not Available [place] [address] [place], [address], 04/24/2023 12:56:37 04/24/20 23 04/24/2023 urina lysis , dipst ick Blood (ref: neg) +++ Not Available [place] [address] [place], [address], 04/24/2023 12:56:37 04/24/20 23 04/24/2023 urina lysis , dipst ick pH (ref: 5.0-7.0) 5.0 Not Available [place] [address] [place], [address], 04/24/2023 12:56:37 04/24/20 23 04/24/2023 urina lysis , dipst ick Protein (ref: neg) Neg Not Available [place] [address] [place], [address], 04/24/2023 12:56:37 04/24/20 23 04/24/2023 urina lysis , dipst ick Urobilinogen (ref: 0.2-1) 0.2 Not Available [place] [address] [place], [address], 04/24/2023 12:56:37 04/24/20 23 04/24/2023 urina lysis , dipst ick Nitrites (ref: neg) positi ve Not Available [place] [address] [place], [address], 04/24/2023 12:56:37 04/24/20 23 04/24/2023 urina lysis , dipst ick Leukocytes (ref: neg) ++ Not Available [facility] [address] [place], [address], 04/24/2023 12:56:37 04/24/20 23 04/24/2023 urina lysis , dipst ick Location [facility], [facility], [address] [place] [address], [id number] Not Available [facility] [address] [place] [address], [address], 04/24/2023 12:56:37 Result Notes None recorded. Procedures Surgical History Date Name Laterality Status Provider Name and Address Organization Details Recorded Time partial nephrectomy completed Caprice Ramos NP [address] [place] [address], [address], [place] [facility] 04/24/2023 12:22:57 Cholecystectomy completed Belén Ramos NP [address] [place] [address], [address], [place] [facility] 04/24/2023 12:23:11 Imaging Results None recorded. Procedure Notes None recorded. Medical Equipment None Reported. Allergies Allergen ID Allergen Name Allergen Category Reaction Reaction Severity Criticality Documentation Date Start Date Code Code System Note Provider Name and Address Organization Details Recorded Time [id number] Keflex medicatio n rash Not available low 04/24/2023 30903 7 RxNorm Belén Ramos NP [address] [place] [address], [phone], [place] [facility] 12:26:28 Medications Name Sig Start Date [...] mm[Hg] 146 mm[Hg] 68 mm[Hg] Not Available [facility] 12:57:21 Social History Question Answer Notes LastModified by Organizat ion Details LastModified Time Tobacco Smoking Status Never Smoker Belén Ramos NP [address] [place], [address], [place] [facility] 04/24/2023 12:23:38 Do You Have An Advance Directive? Yes [email or web address] Information not available 04/24/2023 What Is Your Code Status? Full Code [email or web address] Information not available 04/24/2023 Within The Past 12 Months, Has It Happened That The Food You Bought Just Didn't Last And You Didn't Have Money To Get More. Never True [email or web address] Information not available 04/24/2023 Within The Past 12 Months, Have You Worried That Your Food Would Run Out Before You Got Money To Buy More. Never True [email or web address] Information not available 04/24/2023 Fall Risk: Do You Feel Unsteady When Standing Or Walking? Yes [email or web address] Information not available 04/24/2023 Excessive Alcohol Or Drug Use No [email or web address] Information not available 04/24/2023 Does This Patient Have A PCP? Yes [email or web address] Information not available 04/24/2023 Has The Patient Seen Their PCP In The Past 6 Months? Yes [email or web address] Information not available 04/24/2023 Is This Patient In Hospice? No Information not available 04/24/2023 ADL: Do You Need Help With Daily Activities Such As Bathing, Preparing Meals, Dressing, Or Cleaning? No Information not available 04/24/2023 Social Support: Do You Feel Safe? Yes [email or web address] Information not available 04/24/2023 We Know From Many Of Our Patients That Covering All Of Their Costs Can Be Difficult At Times. This Can Cause Stress And Impact Health. In The Past Year, Have You Been Unable To Get Any Of The Following When It Was Really Needed? No [email or web address] Information not available 04/24/2023 Has Tobacco Cessation Counseling Been Provided? No [email or web address] Information not available 04/24/2023 Sex: Unknown Functional Status Question Answer Note LastModified by Organizat ion Details LastModified Time Do you use any illicit or recreational drugs? No [email or web address] Information not available 04/24/2023 Do you or have you ever used any other forms of tobacco or nicotine? No [email or web address] Information not available 04/24/2023 What is your level of alcohol consumption? None [email or web address] Information not available 04/24/2023 Mental Status None recorded. Family History Relationship Description Onset Age of this Age Resolved Age Notes LastModified by Organization Details LastModified Time Father No current problems or disability [email or web address] Not available 04/24 12:23:28 Mother No current problems or disability [email or web address] Not available 04/24 12:23:29 Medical History Condition Response A-fib Y Hypertension Y Kidney Disease Gynecological HistoryNo gynecological history recorded. Obstetrics History GPAL:G 0 P 0 0 0 0 Past Encounters Encounter ID Performer Location Encounter Start Date Encounter Closed Date Diagnosis/Indication Diagnosis SNOMED-CT Code Diagnosis ICD10 Code Diagnosis Note [id number] Belén Ramos NP [facility] [address] [facility] [place] [address] 04/24/2023 12:03:49 05/22/2023 17:03:51 Acute cystitis 02604177 N30.01 Status of condition: Acute.Test ing/Result s: UA pos for nitrites, leuks, blood Discussion [...] to patient. All questions answered. Essential hypertension 85396037 I10 Status of condition: Chronic. Testing/Re sults: Discussion : Slightly elevated on second reading without aneurysm history. Continue to take current meds and f/u with cardiologi st. No c/o GARVEY, SOB, weakness. Plan, Medication Management & Follow-up recommenda tions: Chronic at rial fibrillation 188390686 I48.20 Status of condition: Chronic. Testing/Re sults: Discussion : Pt currently not in afib, is NSR with auscultati on. Discussed patients choice to stop eliquis with RN at cardio office, RN is going to speak with cardio to determine next course of action/ plan of care. Relayed message to patient and advised pt to pick and shovel man phone when cardiologi st calls or listen to messages. Plan, Medication Management & Follow-up recommenda tions: [id number] Belén Ramos NP [facility] [address] [place] [address] 04/24/2023 12:19:40 04/25/2023 14:18:37 Health Concerns Section Related Observation LastModified by Organization Detai ls LastModified Time None Recorded Concern Status LastModified by Organization Details LastModified Time None Recorded Advance Directives Directive Y: Payers Insurance Date Sequence Insurance Name Policy Number Policy Guadalupe Covered Member ID Guadalupe Member ID Guarantor Name 04/25/2023 1 LOLLY (PPO) [id number] Rosie Guerrero [id number] Andra Burns 04/23/2023 1 *SELF PAY* Rosie Guerrero [id number] Andra Burns 04/25/2023 1 *SELF PAY* [id number] Rosie Guerrero NEED MCR ID PRIMARY Andra Burns Notes Date Note [...] 04/09/23, GFR 53 Belén Ramos NP [address], [place], [address], [place] [facility] 04/24/2023 13:30:02 04/24/2023 text/html duplicate chart Belén neely NP [address], [place], [address], [place] [facility] 04/24/2023 15:13:38 OBGyn Episode No OBEpisode recorded.
== END 2025-03-23 13:13 | disposition home or self-care (01) ==
LOC: HO.LAB 13:12
PROVIDERS: Visit Provider Nurse Practitioner Family
DX: I50.30 Unspecified diastolic (congestive) heart failure (principal)
CPT/HCPCS: 36415; 80048; 83880

== ENCOUNTER 2025-04-21 09:18 | Outpatient (AMB) | payer MEDICARE, SELFPAY ==
--- NOTE | 2025-04-21 09:27 | AM.OFFWIN_ITS ---
Intake Vital Signs 04/21/25 09:28 Height 5 ft 3 in Weight 142 lb BMI 25.2 BP 144/70 H Blood Pressure Location Lt brachial Position Left Lateral Pulse 95 Pulse Source Pulse Oximeter Temp 98.3 F Temp Source Oral Pulse Oximetry (%) 95 Oxygen Delivery Method Room Air Intake Visit Reasons: EP Rash all over body Intake Note: presents with red bumpy rash on body throughout for 2 days, was on amoxicillin since 04/14 for dental work, rash began 04/19 Patient Tobacco Use Status: Never used Tobacco Allergies amoxicillin Allergy (Intermediate, Verified 04/21/25 09:55) rash cephalexin Allergy (Intermediate, Verified 04/21/25 09:30) Rash Do you need a note to return to daycare/school/sports/work: No HPI HPI Comments History of Present Illness Details History - The patient is an 84-year-old female p resenting with a rash. - The rash began 2 days ago, initially o n the palms, and was very itchy. - It spread to her back, legs and arms a nd abdomen, with no fever reported. - [place] better after using benadryl cream on hands. - Amoxicillin was started on April 14 fo r a dental procedure but was stopped on April 20 due to the rash. - Allergy to Keflex is known, and Amoxic illin is suspected to be the cause of the current reaction. - Benadryl cream and oral Benadryl were used for relief, though not on the day of the visit. Physical Exam General: Cooperative, healthy appearing, comfortable, no acute distress and well developed Orientation: Patient oriented x3 Limitations: No limitations Head: Normal to inspection Ears: Hearing grossly normal bilaterally Nose: Normal External nose present Face and sinus: Normal facial exam Eyes: Appearance normal, both eyes and all related structures Neck: Normal visual inspection and Yes full ROM Respiratory: Normal respiratory effort and able to speak in complete sentences. Skin: Erythematous maculopapular rash on full body (sparing the face) Neuro: Patient oriented x3 [facility] Medical History (Updated 04/21/25 @ 10:03 by Shelby Trent PA-C) Persistent atrial fibrillation Paroxysmal atrial fibrillation Atrial flutter New onset a-fib Obesity Hypertension Surgical History History of nephrectomy, left Hx of cholecystectomy Family History Mother No problems noted. Father No problems noted. Social History Housing: House Alcohol intake: never Patient Tobacco Use Status: Never used Tobacco e-Cigarette/Vaping Use: Never Used Second Hand Smoke Exposure: No service: No Current occupational status: retired Cognitive needs: No Hearing needs: Yes Vision needs: No Review of Systems Const All systems reviewed & are unremarkable except as noted in HPI and below Physical Exam Vital Signs: Last Vital Signs Temp 98.3 F 04/21/25 09:28 Pulse 95 04/21/25 09:28 BP 144/70 H 04/21/25 09:28 Pulse Ox 91 L 04/21/25 09:28 Oxygen Delivery Method Room Air 04/21/25 09:28 BMI result Body Mass Index 25.2 Assessment & Plan Assessment & Plan (1) Allergic contact dermatitis due to systemic medicament: Code(s): L23.3 - Allergic contact dermatitis due to drugs in contact with skin Plan: Patient was informed and verbally consented to the use of an ambient scribe for clinic note documentation during this visit. 1. Allergic Reaction To Amoxicillin - Discontinue Amoxicillin immediately. - Initiate a prednisone taper to manage the rash, starting with four tablets for two days, then decreasing the dose over eight days. - Advise the patient to inform the dentist about the prednisone use, as it may affect the timing of the dental procedure. - Recommend taking Benadryl at night for additional symptomatic relief. Medications: New prednisone take 4 tablets on days 1-2, take 3 tablets on days 3-4, take 2 tablets on days 5-6, take 1 tablet on days 7-8. 10 mg PO DIRECTED 20 tabs 0RF Coding Level of Care Code New Pt Level 3 (81788) Diagnoses Allergic contact dermatitis due to systemic medicament L23.3
[2025-04-21 09:28] VITALS: BP 144/70; PULSE 95; TEMP 36.8; O2SAT 95; BMI 25.2
== END 2025-04-21 10:05 | disposition home or self-care (01) ==
PROVIDERS: Visit Provider Physician Assistant
DX: L23.3 Allergic contact dermatitis due to drugs in contact with skin (principal)

== ENCOUNTER → 2025-04-21 09:18 | Outpatient (BNVA) | payer MEDICARE, SELFPAY | PROVIDERS: Visit Provider Physician Assistant | DX: L23.3 Allergic contact dermatitis due to drugs in contact with skin (principal) | CPT/HCPCS: 99202 ==

== ENCOUNTER 2025-06-18 10:17 | Outpatient (AMB) | payer MEDICARE, SELFPAY ==
--- NOTE | 2025-06-18 10:24 | A.OFFVIS_ITS ---
Vital Signs 06/18/25 10:25 Height 5 ft 3 in Weight 145 lb 8.081 oz BMI 25.8 BP 132/72 Blood Pressure Location Lt brachial Position Sitting Pulse 94 Intake Visit Reasons: 3 mth + f/up Intake Note: 3 month follow-up c/o fatigue when lying down the heart will race Consultant Electronics Required: No Homicide Squad Commanding Officer: Homicide Squad Commanding Officer Present Accompanied by: Friend Allergies amoxicillin Allergy (Intermediate, Verified 04/21/25 09:55) rash cephalexin Allergy (Intermediate, Verified 04/21/25 09:30) Rash Medication List - Last Reconciled 06/18/25 by Arturo Tucker MD apixaban (Eliquis) 5 mg PO BID 90 days atorvastatin 20 mg PO DAILY blood sugar diagnostic (FreeStyle Lite Strips) Testing once a day as needed. blood-glucose meter (FreeStyle Lite Meter kit) As directed cholecalciferol (vitamin D3) 50 mcg PO DAILY furosemide (Lasix) 20 mg PO DAILY PRN 30 days lisinopril 40 mg PO DAILY metoprolol succinate ER 50 mg PO DAILY HPI Comments Details: Abimael comes for follow-up. She continues to have symptoms of exertional fatigue and shortness of breath. She denies any clear orthopnea. She takes Lasix when she feels really short of breath. She has not had significant fluid overload or leg edema. She comes for follow-up today. Her BNP in the labs has been gradually increasing suggestive of ongoing heart failure problem. 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 Patient denies any exertional chest pain or lightheadedness or syncope. No bleeding issues or neurologic events. She does complain of rapid heart rate at nighttime when she turns around although her Holter monitor done in January showed adequate rate control. She denies any fever or chills. [facility] Medical History (Updated 06/18/25 @ 10:48 by Arturo Tucker MD) Paroxysmal atrial fibrillation Persistent atrial fibrillation Atrial flutter New onset a-fib Obesity Hypertension Surgical History History of nephrectomy, left Hx of cholecystectomy Family History Mother No problems noted. Father No problems noted. Social History Housing: House Alcohol intake: never Patient Tobacco Use Status: Never used Tobacco e-Cigarette/Vaping Use: Never Used Second Hand Smoke Exposure: No service: No Current occupational status: retired Cognitive needs: No Hearing needs: Yes Vision needs: No Review of Systems Const Denies chills, Denies fatigue, Denies fever(s), Denies frequent falls, Denies weakness, Denies weight gain and Denies weight loss ENT Denies dizziness Card Denies chest pain, Denies leg edema, Denies lightheadedness, Denies palpitations, Denies dyspnea, Denies dyspnea on exertion, Denies orthopnea and Denies other (loss of consciousness) Resp Denies cough, Denies dyspnea and Denies dyspnea on exertion GI Denies hematochezia and Denies change in stool character Musc Denies abnormal gait, Denies muscle weakness, Denies numbness, Denies radiating pain into limb and Denies tingling Neuro Denies abnormal gait, Denies dizziness, Denies frequent falls, Denies numbness, Denies tingling and Denies weakness Endo Denies fatigue and Denies palpitations Physical Exam Vital Signs: Last Vital Signs Pulse 94 06/18/25 10:25 BP 132/72 06/18/25 10:25 BMI result Body Mass Index 25.8 Const General: cooperative, healthy appearing, comfortable and no acute distress Orientation/consciousness: patient oriented x3 Neck Neck: Yes normal visual inspection Resp Effort & Inspection: normal respiratory effort Auscultation: clear to auscultation bilaterally, crackles (Coarse) on the right, no rales, no rhonchi and no wheezes Cardio Palpation: normal PMI Rhythm: abnormal rhythm irregularly irregular Heart sounds: S1 normal heart sound present, S2 normal heart sound present, no murmurs and no rubs Neuro General: patient oriented x3 Extrem General: Yes normal to inspection, No no pedal edema and No calf tenderness Psych Appearance: grossly normal Mental Status: mental status grossly normal Speech and movement: Normal speech and movement present Assessment & Plan Assessment & Plan (1) Persistent atrial fibrillation: Code(s): I48.19 - Other persistent atrial fibrillation Category: Medical Plan: Persistent long-lasting atrial fibrillation with increasing symptoms and increasing suggestion of developing progressive heart failure syndrome. She has increasing BNP as well as chest x-ray findings suggestive of congestion. 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 At this point time we suggest alternative agent such as Tikosyn to try to pursue rhythm control approach with pharmacologic support given that she has longstanding atrial fibrillation as well as left atrial enlargement. However this will require her to be hospitalized for 3 days for inpatient initiation of Tikosyn. She got concerned about it and wants to discuss with the daughter. We discussed about potentially pursuing rhythm control approach to help her symptoms as she has had progressive symptoms. She wants to think about it. Meanwhile continue full oral anticoagulation, currently on Eliquis 5 mg b.i.d.. Quarterly renal function test should be pursued. (2) (HFpEF) heart failure with preserved ejection fraction: Code(s): I50.30 - Unspecified diastolic (congestive) heart failure Category: Medical Plan: Heart failure with preserved ejection fraction with progressive symptoms taking PRN Lasix. Both chest excellent BNP as suggestive of congestive heart failure which is progressing. We discussed to change Lasix to daily. Daily weight monitoring avoidance salt loading was discussed. Additional diuretics as need be. Since she has a persistent atrial fibrillation she is progressive symptoms and could consider pursuing more aggressive rhythm control approach as above. Continue aggressive blood pressure control on current therapy. Blood pressure is well optimized. Will follow up in the clinic in 2 months time, sooner PRN. Thank you for allowing me to partake in her care Medications: Changed From furosemide (Lasix) 20 mg PO DAILY 30 days PRN 30 tabs 3RF edema, shortness of breath To furosemide (Lasix) 20 mg PO DAILY 30 tabs 3RF edema, shortness of breath 30 days Coding Level of Care Code Est Pt Level 4 (41525) Complex EM visit Add On G2211 Diagnoses Persistent atrial fibrillation I48.19 (HFpEF) heart failure with preserved ejection fraction I50.30
[2025-06-18 10:25] VITALS: BP 132/72; PULSE 94; BMI 25.8
== END 2025-06-18 10:46 | disposition home or self-care (01) ==
LOC: HO.HCS 10:18
PROVIDERS: PCP Physician Assistant; Visit Provider Internal Medicine Cardiovascular Disease
DX: I48.19 Other persistent atrial fibrillation (principal); I50.30 Unspecified diastolic (congestive) heart failure
CPT/HCPCS: 99214; G2211

== ENCOUNTER → 2025-06-18 10:17 | Outpatient (BNVA) | payer MEDICARE, SELFPAY | PROVIDERS: PCP Physician Assistant; Visit Provider Internal Medicine Cardiovascular Disease | DX: I11.0 Hypertensive heart disease with heart failure (principal); I50.30 Unspecified diastolic (congestive) heart failure; I48.19 Other persistent atrial fibrillation | CPT/HCPCS: 99212 ==

== ENCOUNTER 2025-06-22 15:43 | Inpatient (IN) | payer MEDICARE, SELFPAY ==
--- NOTE | ~2025-06-22 | XR_ITS ---
CLINICAL HISTORY: hypoxia 1 view chest Comparison: CT/REG/SR - CT CHEST WITHOUT IV CONTRAST - 06/26/25 11:27 EDT Findings: Cardiac and mediastinal contours are normal. Mild interstitial prominence with scattered peribronchial thickening. No focal consolidation. No effusion. No pneumothorax. No acute osseous finding. Impression: Mild interstitial prominence with scattered peribronchial thickening. No focal consolidation. This document has been electronically signed by: Norris Acosta MD on 06/27/2025 08:09:13
--- NOTE | ~2025-06-22 | CT_ITS ---
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 COMPARISON: July 25, 2024. TECHNIQUE: Multidetector volumetric CT imaging of the chest was done. Axial MIP volume rendering provided. Sagittal and coronal reformatted images were obtained. This CT examination was performed using dose optimization techniques as appropriate, variously including the following: *Automated exposure control *Adjustment of mA and/or kV according to patient size (this includes techniques or standardized protocols for targeted exams where dose is matched to indication/reason for exam; i.e. extremities or head) *Use of iterative reconstruction technique DLP: 104 mGy centimeter. FINDINGS: DESKTOP ANALYST: No hyperinflation. Calcifications in the thoracic aorta. Multilevel spondylosis. Patient's large body habitus. Vascular clips in the upper abdomen. LUNGS: There is a pulmonary mosaic pattern. Multiple less than 1 cm pulmonary nodules in the periphery of both lungs. Linear and patchy pulmonary groundglass. No gross honeycombing or bronchiectasis. MEDIASTINUM: Mediastinal lymphadenopathy. Calcified plaques in the thoracic aorta wall and its main branches the coronary arteries the aortic valve in the mitral valve. No pericardial effusion. No hemopericardium. The heart is not enlarged. No pneumomediastinum. Mild prominent thyroid gland. CORONARY ARTERY CALCIFICATION: Calcified plaques. PLEURA: No pleural effusion. No pneumothorax. No calcified pleural plaques. No hemothorax. AXILLA: No lymphadenopathy. UPPER ABDOMEN: Pneumobilia. Multiple vascular clips in the yuri hepatic. Calcified plaques in the abdominal aorta wall mesenteric vessels in the splenic artery. Extrarenal pelvis, right kidney. OSSEOUS STRUCTURES: Multilevel spondylosis. No acute fracture or listhesis. Bone marrow inhomogeneity. Sternum is intact. No acute rib fracture. 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 Pneumobilia. Coronary artery disease and atherosclerosis disease. Lymphadenopathy, mediastinum and perihilar. Fleischner guidelines were followed. Electronically signed by: Fredo Petersen MD 06/26/2025 12:02 PM EDT
--- NOTE | ~2025-06-22 | XR_ITS ---
CLINICAL HISTORY: hypoxia Single view of the chest. COMPARISON: XR chest dated 03/10/25 at 09:42 EDT FINDINGS: Cardiomegaly. Atherosclerotic thoracic aorta. No consolidation. Mild bronchial wall thickening. No pleural effusion or pneumothorax. [place] left curvature of the midthoracic spine. Mild spondylosis. No acute fracture. IMPRESSION: 1. No consolidation. 2. Mild bronchial wall thickening. Nonspecific finding can be seen with pulmonary edema or a multifocal infectious or inflammatory process. This document has been electronically signed by: Cyril Grullon MD on 06/22/2025 18:21:30
[2025-06-22 15:52] VITALS: BP 189/90; PULSE 81; RESP 14; TEMP 36.6; O2SAT 83; BMI 25.1
--- NOTE | 2025-06-22 15:52 | ED.GENADULT ---
HPI - General Adult General Chief complaint: General Medical Stated complaint: sent by for a 3 day observation Time Seen by Provider: 06/22/25 16:07 Source: patient, RN notes reviewed and old records reviewed Mode of arrival: ambulatory Limitations: no limitations History of Present Illness ED Provider: Michael MONTIEL narrative: 85-year-old female with a past medical history significant for atrial fibrillation on Eliquis, diabetes, hypertension, hyperlipidemia, heart failure presents for evaluation of admission. the patient reports that she has been feeling unwell for about 1 month and has been in consistent atrial fibrillation. She follows with Cardiology, Dr. Tucker who recommended she come to the emergency department for a 3 day stay to be loaded with Tikosyn the patient reports no chest pain, shortness of breath or leg swelling she was found to be hypoxic to 83% on room air and she does not use oxygen at baseline Related Data Previous Rx's ?Medication ?Instructions ?Recorded blood-glucose meter (FreeStyle #1 ea 10/01/23 Lite Meter kit) blood sugar diagnostic (FreeStyle #50 ea 10/11/23 Lite Strips) cholecalciferol (vitamin D3) 50 50 mcg PO DAILY #90 tabs 01/09/24 mcg (2,000 unit) tablet apixaban 5 mg tablet (Eliquis) 5 mg PO BID 90 days #180 tabs 12/18/24 atorvastatin 20 mg tablet 20 mg PO DAILY #90 tabs 12/18/24 lisinopril 40 mg tablet 40 mg PO DAILY #90 tabs 12/18/24 metoprolol succinate 50 mg 50 mg PO DAILY #90 tabs 06/16/25 tablet,extended release 24 hr furosemide 20 mg tablet (Lasix) 20 mg PO DAILY edema, shortness of 06/18/25 breath 30 days #30 tabs Allergies Allergy/AdvReac Type Severity Reaction Status Date / Time amoxicillin Allergy Intermediate rash Verified 06/22/25 15:53 cephalexin Allergy Intermediate Rash Verified 06/22/25 15:53 Review of Systems Constitutional: Constitutional: Denies body ache(s), Denies chills, Denies fever(s) and Denies headache(s) Eyes: Eyes: Denies blurry vision ENT: Denies vertigo, Denies dizziness and Denies headache(s) Cardiovascular: Cardiovascular: Denies chest pain and Denies dyspnea on exertion Respiratory: Respiratory: Denies cough and Denies dyspnea on exertion Gastrointestinal: Gastrointestinal: Denies abdominal pain, Denies nausea and Denies vomiting Musculoskeletal: Musculoskeletal: Denies back pain Integumentary/Breasts: Skin/Breast: Denies rash Neurologic: Denies vertigo, Denies dizziness and Denies headache(s) Psychiatric: Psychiatric: Denies anxiety PMFSH Past Medical History Medical History (Updated 06/22/25 @ 18:01 by Robert Rodriguez) Paroxysmal atrial fibrillation Persistent atrial fibrillation Atrial flutter New onset a-fib Obesity Hypertension Surgical History History of nephrectomy, left Hx of cholecystectomy Family History Family History Mother No problems noted. Father No problems noted. Social History Social History Housing: House Alcohol intake: never Patient Tobacco Use Status: Never used Tobacco Smoked in Last 30 Days: No e-Cigarette/Vaping Use: Never Used Second Hand Smoke Exposure: No Use of substances other than those prescribed or required for medical reasons: No Advance Directives: No Advance Directives Information Provided: No Do you have a plan to hurt others: No Plan service: No Current occupational status: retired Cognitive needs: No Hearing needs: Yes Vision needs: No Physical Exam ED Vital Signs: Vital Signs - 24 hr 06/22/25 15:52 Temperature 97.9 F Pulse Rate 81 Respiratory Rate 14 Blood Pressure 189/90 H Pulse Oximetry 83 L Oxygen Delivery Method Room Air BMI result Body Mass Index 25.1 Const General: healthy appearing, comfortable, no acute distress, alert and awake Nutritional Appearance: well nourished Orientation/consciousness: patient oriented x3 HENMT Head: Yes normocephalic and Yes atraumatic Eyes Eyelids: Yes eyelids normal Conjunctivae: conjunctivae normal Sclerae: sclerae normal Corneas: corneas normal Pupils: Equal, round and reactive pupils present EOM: EOMs intact bilaterally Neck Neck: Yes full ROM Resp Effort & Inspection: normal respiratory effort, able to speak in complete sentences and not labored Cardio Other: no lower extremity edema Rate: regular rate Rhythm: regular rhythm GI Inspection: No distended Palpation (GI): Soft to palpation, not firm, nontender, no guarding and not rigid Skin General skin exam: elasticity normal Neuro General: patient oriented x3 Cranial nerves: Yes Equal, round and reactive pupils present and Yes Bilaterally intact EOM present Cognition (Neuro): normal cognition Extrem Other: Moving all extremities well without any obvious deformities Course Course Course Narrative: Rapid medical examination performed in triage by Brittnee Otero PA-C. Patient is an 85 year old assigned female at presenting to the emergency department for admission. Patient states that she was told by Dr. Tucker that she needs to be admitted to be started on a new anti-arryhtmic medication Tikosyn. Detailed physical exam and review of systems are deferred to the residential installer. EKG and labs ordered. Patient placed back in the waiting room pending room availability and results. Medical Decision Making Medical Decision Making [facility] Narrative: 85-year-old female with a past medical history as above presents for evaluation of atrial fibrillation and plans for admission. I reached out to Dr. Tucker and apparently the patient was supposed to be a direct admission. I reached out to the hospitalist, alvaro who will admit the patient. He is aware of the patient in his planning to low the patient would load the patient with Tikosyn. I did order a chest x-ray given the patient's hypoxia. She is anti coagulated with Eliquis so less likely PE, she has no calf pain or leg swelling. The patient's QTC is prolonged, so we will not start the 1st dose until the patient is seen by Cardiology Differential Diagnosis Differential Diagnoses: The differential diagnosis associated with the presentation includes AFib Arrhythmia Palpitations Pneumonia CHF Admission/Observation Consideration of admission/observation: Escalation of care including admission/observation considered Lab Data MDM Lab Attestation statement: I reviewed the patient's lab results. no leukocytosis. The patient has a slightly elevated potassium of 5.6 and she was given a dose of Lokelma. BUN is elevated to 44 with a creatinine of 1.09, unclear etiology. Random glucose of 121 06/22/25 16:11 06/22/25 16:11 Labs: Lab Results 06/22/25 Range/Units 16:11 WBC 9.2 (4.8-10.8) X10*3/uL RBC 5.42 (4.20-5.50) X10*6/uL Hgb 14.0 (12.0-16.0) g/dl Hct 43.4 (37.0-47.0) % MCV 80.1 (80.0-98.0) fL MCH 25.8 L (27.0-33.0) pg MCHC 32.3 (31.0-35.0) g/dl RDW 20.2 H (11.0-16.0) % Plt Count 240 (160-400) X10*3/uL MPV 10.0 (9.4-12.3) fL Immature Gran % (Auto) 0.4 (0.0-0.4) % Neut % (Auto) 67.4 (45-73) % Lymph % (Auto) 18.4 L (20-40) % [place] % (Auto) 10.6 (2-11) % Eos % (Auto) 2.4 (0-4) % Baso % (Auto) 0.8 (0-2) % Lymph # (Auto) 1.7 (1.2-4.9) X10*3/uL [place] # (Auto) 1.0 (0.1-1.2) X10*3/uL Eos # (Auto) 0.2 (0.0-0.4) X10*3/uL Baso # (Auto) 0.1 (0.0-0.2) X10*3/uL Abs Immat Gran (auto) 0.04 H (0.00-0.03) X10*3/uL Absolute Neuts (auto) 6.2 (2.0-8.3) x10*3/uL Absolute Nucleated RBC 0.000 (0.0-0.012) X10*3/uL Nucleated RBC % (auto) 0.0 (0.0-0.2) /100WBC PT 18.0 H (10.9-12.4) SEC INR 1.6 H (0.9-1.1) Sodium 141 (135-145) mmol/L Potassium 5.6 H (3.3-5.1) mmol/L Chloride 109 H (96-108) mmol/L Carbon Dioxide 22 (22-29) mmol/L Anion Gap 16 (12-20) BUN 44 H (9-16) mg/dL Creatinine 1.09 (0.5-1.4) mg/dL Estim Creat Clear Calc 33.4 Estimated GFR 48 Random Glucose 121 H (60-115) mg/dL Calcium 9.4 (8.4-10.2) mg/dL Magnesium 2.0 (1.6-2.6) mg/dL Total Bilirubin 0.6 (0.0-1.0) mg/dL AST 50 H (5-31) U/L ALT 27 (0-31) U/L Alkaline Phosphatase 112 (39-117) U/L Troponin I High Sens 11.0 (<3.5-17.0) ng/L B-Natriuretic Peptide 840 H (<100) pg/mL Total Protein 8.0 (6.5-8.0) g/dL Albumin 3.5 (3.5-5.0) g/dL Independent Interpretation I performed an independent interpretation of an: EKG ( AFib with a rate of 72 beats minute. Right bundle branch block that is baseline for the patient. QTC of 508) Discharge Plan Discharge Clinical Impression: Atrial fibrillation Patient Disposition: Admitted As Inpatient
[2025-06-22 16:20] LABS: MANUAL DIFF FLAG NO
[2025-06-22 16:22] LABS: Hematocrit 43.4 % (37.0-47.0); Hemoglobin 14.0 g/dl (12.0-16.0); Imm Gran Abs Auto 0.04 X10*3/uL (0.00-0.03); Imm Gran Pct Auto 0.4 % (0.0-0.4); Lymphocytes Absolute Auto 1.7 X10*3/uL (1.2-4.9); Mean Corpuscular HGB Conc 32.3 g/dl (31.0-35.0); Mean Corpuscular Hemoglobin 25.8 pg (27.0-33.0); Mean Corpuscular Volume 80.1 fL (80.0-98.0); NRBC Abs Auto 0.000 X10*3/uL (0.0-0.012); NRBC Pct Auto 0.0 /100WBC (0.0-0.2); Platelet Count 240 X10*3/uL (160-400); Red Blood Count 5.42 X10*6/uL (4.20-5.50); White Blood Count 9.2 X10*3/uL (4.8-10.8)
[2025-06-22 16:28] LABS: INTERNATIONAL NORM RATIO 1.6 (0.9-1.1); Prothrombin Time 18.0 SEC (10.9-12.4)
[2025-06-22 16:40] LABS: Alanine Aminotransferase 27 U/L (0-31); Albumin Level 3.5 g/dL (3.5-5.0); Alkaline Phosphatase 112 U/L (39-117); Anion Gap 16 (12-20); Aspartate Amino Transferase 50 U/L (5-31); Blood Urea Nitrogen 44 mg/dL (9-16); Calcium 9.4 mg/dL (8.4-10.2); Carbon Dioxide 22 mmol/L (22-29); Chloride 109 mmol/L (96-108); Creatinine Clr Calc Pharmacy 33.4; Estimated Glomerular Filt Rate 48; Magnesium 2.0 mg/dL (1.6-2.6); Potassium 5.6 mmol/L (3.3-5.1); Sodium 141 mmol/L (135-145); Total Protein 8.0 g/dL (6.5-8.0)
[2025-06-22 16:44] LABS: Troponin-I High Sensitivity 11.0 ng/L (<3.5-17.0)
[2025-06-22 17:37] LABS: B Type Natriuretic Peptide 840 pg/mL (<100)
[2025-06-22 18:05] VITALS: BP 167/88; PULSE 78; RESP 14; TEMP 36.8; O2SAT 93
--- NOTE | 2025-06-22 18:43 | P.HPHOSP_ITS ---
History of Present Illness Date of Service: 06/22/25 Attending physician on admission: Bernabe Perez Chief Complaint: Persistent AFib Pt is an 85-year-old female with a PMH significant for paroxysmal AFib on Eliquis, HTN, and HLD who is being directly admitted to the hospital from Cardiology for Tikosyn loading and monitoring. Pt follows with Dr. Tucker in Cardiology who previously had rhythm control on amiodarone, which was recently stopped due to concerns for pulmonary amiodarone toxicity. Since then pt has BNP has been steadily rising ad concern is for developing progressive heart failure. After consultation, pt wished to pursue rhythm control with Tikosyn which would require a 3 day hospital stay. Upon presentation to the hospital pt was noted to be hypoxic at 83%, and labs were significant for elevated BNP as well as hyperkalemia of 5.6. EKG with QTc 508. Pt herself had no acute medical complaints, denies significant SOB or difficulty breathing at rest. No lightheadedness or dizziness. Denies shortness or breath or difficulty breathing. No fever, chills, nausea, vomiting. Pt is admitted to the hospital for acute hypoxic respiratory failure in the setting of CHF exacerbation, as well as for Tikosyn loading and monitoring. Review of Systems 2 Review of Systems: Negative except for that which is stated in the HPI. [facility] Medical History (Updated 06/22/25 @ 19:20 by SARAH Gray) Paroxysmal atrial fibrillation Persistent atrial fibrillation Atrial flutter New onset a-fib Obesity Hypertension Family History Mother No problems noted. Father No problems noted. Surgical History History of nephrectomy, left Hx of cholecystectomy Social History Housing: House Alcohol intake: never Patient Tobacco Use Status: Never used Tobacco Smoked in Last 30 Days: No e-Cigarette/Vaping Use: Never Used Second Hand Smoke Exposure: No Use of substances other than those prescribed or required for medical reasons: No Advance Directives: No Advance Directives Information Provided: No Do you have a plan to hurt others: No Plan service: No Current occupational status: retired Cognitive needs: No Hearing needs: Yes Vision needs: No Meds Allergies Allergy/AdvReac Type Severity Reaction Status Date / Time amoxicillin Allergy Intermediate rash Verified 06/22/25 15:53 cephalexin Allergy Intermediate Rash Verified 06/22/25 15:53 Active Medications: Current Medications Furosemide (Furosemide 20 Mg/2 Ml Vial) 20 mg IVPUSH DAILY SARINA; Protocol Physical Exam 2 Vital Signs and Narrative: Vital Signs: Last Vital Signs Temp 98.2 F 06/22/25 18:05 Pulse 78 06/22/25 18:05 Resp 14 06/22/25 18:05 BP 167/88 H 06/22/25 18:05 Pulse Ox 93 06/22/25 18:05 O2 Del Method Nasal Cannula 06/22/25 18:05 O2 Flow Rate 2 06/22/25 18:05 BMI result Body Mass Index 25.1 General: AOx3, no acute distress Resp: CTA bilaterally CVS: S1, S2, RRR GI: +BS, NT, no distention Skin: Warm, dry Neuro: Cranial nerves II-XII grossly intact bilaterally. Motor grossly intact bilaterally Extremities: No edema Psych: Appropriate affect Results Labs 06/22/25 16:11 06/22/25 16:11 Labs: Laboratory Results - last 24 hr 06/22/25 16:11 MCV 80.1 MCH 25.8 L MCHC 32.3 RDW 20.2 H Plt Count 240 MPV 10.0 Immature Gran % (Auto) 0.4 Neut % (Auto) 67.4 Lymph % (Auto) 18.4 L [place] % (Auto) 10.6 Eos % (Auto) 2.4 Baso % (Auto) 0.8 Lymph # (Auto) 1.7 [place] # (Auto) 1.0 Eos # (Auto) 0.2 Baso # (Auto) 0.1 Abs Immat Gran (auto) 0.04 H Absolute Neuts (auto) 6.2 Absolute Nucleated RBC 0.000 Nucleated RBC % (auto) 0.0 PT 18.0 H INR 1.6 H Anion Gap 16 Estim Creat Clear Calc 33.4 Estimated GFR 48 Random Glucose 121 H Calcium 9.4 Magnesium 2.0 Total Bilirubin 0.6 AST 50 H ALT 27 Alkaline Phosphatase 112 B-Natriuretic Peptide 840 H Total Protein 8.0 Albumin 3.5 Assessment and Plan (1) Acute hypoxic respiratory failure: Status: Acute (2) CHF exacerbation: Status: Acute (3) Visit for monitoring Tikosyn therapy: Status: Acute Plan Pt is an 85-year-old female with a PMH significant for paroxysmal AFib on Eliquis, HTN, and HLD who is being directly admitted to the hospital from Cardiology for Tikosyn loading and monitoring. Pt is admitted to the hospital for acute hypoxic respiratory failure in the setting of CHF exacerbation, as well as for Tikosyn loading and monitoring. Acute hypoxic respiratory failure in the setting of CHF exacerbation Secondary to AFib Elevated BNP, desatting to 83% on RA, CXR with possible pulmonary edema Will treat with Lasix 20mg IV daily Strict I/O, daily weights, low salt diet Follow lytes Titrate supplemental O2>92, wean as tolerated Tikosyn loading Pt here for 3 day hospital stay for cardiac monitoring while being loaded with Tikosyn EKG with QTc 508; will hold on Tikosyn loading for now Repeat EKG in the morning to monitor QTc Once QTc WNL, pt will be loaded with Tikosyn 125 mcg b.i.d. x1 day, 250mcg bid x1day, 300 mcg bid x day Will need EKG 2-3 hours after each dose to monitor QTc Follow creatinine, K+, Mag Cardiology consult Monitor on telemetry Hypertensive urgency BP elevated as high as 189/91 Labetalol 5 mg IV p.r.n. SBP >170 Continue lisinopril, metoprolol Paroxysmal AFib Continue metoprolol, Eliquis HLD Continue statin Full Code Attending:?Dr. Perez DVT Prophylaxis: On Eliquis Pt will require a hospitalization of at least two nights for treatment of?acute hypoxic respiratory failure in the setting of CHF exacerbation as well as Tikosyn loading requiring close cardiac monitoring. Quality Stroke Does the patient have a stroke diagnosis?: No VTE Prior VTE?: No VTE Risk Level:: Medical - moderate - high VTE Device Contraindication: Treatment Not Indicated VTE Drug Contraindication: N/A - Med Ordered
[2025-06-22 18:47] VITALS: BP 189/91; PULSE 71; RESP 18; TEMP 36.3; O2SAT 94
[2025-06-22 18:52] LABS: Glucose, Whole Blood 105 mg/dL (60-115)
[2025-06-22 18:55] VITALS: BMI 26.0
[2025-06-22] MEDS: Furosemide 20 MG/2 ML VIAL IVPUSH (19:01)
[2025-06-22 20:00] VITALS: BP 187/97; PULSE 81; RESP 18; TEMP 36.6; O2SAT 92
--- NOTE | 2025-06-22 20:10 | PHA.MEDREC ---
Addendum entered by Mona Ruvalcaba RPh 06/22/25 20:31: Reviewed by [facility] Original Note: Pharmacy Consult ? Medication Reconciliation Pharmacy has completed the medication reconciliation. patient was able to confirm med list. patient had all her morning medications today.
[2025-06-22 20:28] LABS: Glucose, Whole Blood 185 mg/dL (60-115)
[2025-06-22] MEDS: 0.9 % Sodium Chloride Flush 3 ML SYRINGE IVFLUSH (20:49)
[2025-06-22 23:03] VITALS: BP 145/65
[2025-06-22 23:42] VITALS: BP 139/65; PULSE 75; RESP 18; TEMP 36.2; O2SAT 99
[2025-06-23] VITALS (7 sets, daily range): BP systolic 113–143; BP diastolic 65–71; PULSE 64–87; RESP 12–18; TEMP 36.4–36.7; O2SAT 87–98; BMI 25.8
[2025-06-23 07:37] LABS: Glucose, Whole Blood 112 mg/dL (60-115)
[2025-06-23 07:52] LABS: Hematocrit 42.2 % (37.0-47.0); Hemoglobin 13.7 g/dl (12.0-16.0); Mean Corpuscular HGB Conc 32.5 g/dl (31.0-35.0); Mean Corpuscular Hemoglobin 25.8 pg (27.0-33.0); Mean Corpuscular Volume 79.3 fL (80.0-98.0); NRBC Abs Auto 0.000 X10*3/uL (0.0-0.012); NRBC Pct Auto 0.0 /100WBC (0.0-0.2); Platelet Count 207 X10*3/uL (160-400); Red Blood Count 5.32 X10*6/uL (4.20-5.50); White Blood Count 8.3 X10*3/uL (4.8-10.8)
--- NOTE | 2025-06-23 08:00 | ECG_ITS ---
Test Reason : QTc monitoring Blood Pressure : */* mmHG Vent. Rate : 73 BPM Atrial Rate : * BPM P-R Int : * ms QRS Dur : 126 ms QT Int : 474 ms P-R-T Axes : * -39 -50 degrees QTcB Int : 522 ms Atrial fibrillation Left axis deviation Right bundle branch block Abnormal ECG When compared with ECG of 22-Jun-2025 16:18, Nonspecific T wave abnormality, worse in Inferior leads Referred By: Thania Albert Electronically Signed By: JOSH CHAWLA MD
[2025-06-23 08:25] LABS: Blood Urea Nitrogen 38 mg/dL (9-16); Calcium 9.0 mg/dL (8.4-10.2); Creatinine Clr Calc Pharmacy 36.5; Estimated Glomerular Filt Rate 52; Magnesium 1.9 mg/dL (1.6-2.6)
[2025-06-23 08:38] LABS: Anion Gap 14 (12-20); Carbon Dioxide 26 mmol/L (22-29); Chloride 108 mmol/L (96-108); Potassium 3.8 mmol/L (3.3-5.1); Sodium 144 mmol/L (135-145)
[2025-06-23] MEDS: Furosemide 20 MG/2 ML VIAL IVPUSH (08:38)
[2025-06-23] MEDS: 0.9 % Sodium Chloride Flush 3 ML SYRINGE IVFLUSH ×3 (08:38→21:16)
--- NOTE | 2025-06-23 08:47 | MHC.CM.PN ---
IMM given 06/23. Pts primary language is Croatian, but she also speaks [place]. This CM offered pt a Croatian sales service executive, pt declined, but she is aware that she has the option of having an sales service executive. Pt self-care, lives in a 2 family home, she lives upstairs alone, and has a tenant/friend living downstairs who helps her when needed. Pt reports being very independent still cooking/cleaning. Pt will arrange her own transport home at discharge. Education provided on HCP, pt declines to complete one at this time. Pt states she had PCP/Dr. Brian Pisano (who is now retired), she was reassigned a new PCP, but is unsure of their name. Pt states this CM may call her daughter Andra as she knows the PCP's name.
[2025-06-23] MEDS: Metoprolol Succinate ER 50 MG TAB.ER.24H PO (09:48)
--- NOTE | 2025-06-23 10:08 | ECG_ITS ---
Test Reason : qt Blood Pressure : */* mmHG Vent. Rate : 75 BPM Atrial Rate : * BPM P-R Int : * ms QRS Dur : 122 ms QT Int : 488 ms P-R-T Axes : * -22 -4 degrees QTcB Int : 544 ms Atrial fibrillation Right bundle branch block Cannot rule out Anteroseptal infarct , age undetermined Abnormal ECG When compared with ECG of 23-Jun-2025 07:54, Minimal criteria for Anteroseptal infarct are now Present Referred By: Thania Albert Electronically Signed By: JOSH CHAWLA MD
[2025-06-23 11:51] LABS: Glucose, Whole Blood 154 mg/dL (60-115)
--- NOTE | 2025-06-23 12:28 | PM.CNCAR ---
History of Present Illness History of Present Illness Date of Service: 06/23/25 Requesting physician: Thania Albert Consult reason: atrial fibrillation and congestive heart failure Chief complaint: tikosyn loading Narrative: I was consulted to see Kathyasoni in cardiology consultation today. Patient was admitted for inpatient loading of Tikosyn for atrial fibrillation management. However patient came to the emergency room yesterday for unclear reason. After she came to the emergency room she was noted to be hypoxemic with pulse ox an 83% and findings suggestive of CHF. She was given Lasix yesterday but no eyes and nose has been maintained. Patient feels better. Rate is controlled. Did not get any Tikosyn last night. Potassium measure was 5.6. Her QTC is measured to be high although QT interval was in 474 range with a prolonged QRS, overall concern for actual prolongation of repolarization in his low. Patient has been taking oral anticoagulation therapy. Feels well right now. Denies any significant shortness of breath. No chest pain. No lightheadedness, syncope. Blood pressure is stable. Review of Systems Constitutional: Constitutional: Reports no additional constitutional complaints Cardiovascular: Cardiovascular: Denies chest pain, Denies leg edema, Denies lightheadedness, Denies Loss of Consciousness, Denies palpitations, Reports dyspnea on exertion and Denies orthopnea Respiratory: Respiratory: Reports no additional respiratory complaints and Reports dyspnea on exertion Gastrointestinal: Gastrointestinal: Reports no additional gastrointestinal complaints Genitourinary: Genitourinary: Reports no additional female genitourinary complaints Integumentary/Breasts: Skin/Breast: Reports system reviewed and no additional complaints, except as docu Psychiatric: Psychiatric: Reports no additional psychiatric complaints Endocrine: Endocrine: Denies palpitations [facility] Past Medical History Medical History Paroxysmal atrial fibrillation Persistent atrial fibrillation Atrial flutter New onset a-fib Obesity Hypertension Family History Family History Mother No problems noted. Father No problems noted. Surgical History Surgical History History of nephrectomy, left Hx of cholecystectomy Social History Social History Household Members: None Housing: House Do you presently have visiting nurse or other home services: No Alcohol intake: never Patient Tobacco Use Status: Never used Tobacco Smoked in Last 30 Days: No e-Cigarette/Vaping Use: Never Used Second Hand Smoke Exposure: No Use of substances other than those prescribed or required for medical reasons: No Currently Displaying Signs/Symptoms of Drug Intoxication Withdrawal: No Have you been hit, kicked, punched, or otherwise hurt by someone within the past year? If so, by whom?: No Are you made to feel afraid or neglected: No Advance Directives: No Advance Directives Information Provided: No Do you have a plan to hurt others: No Plan Recently lost weight without trying: No How much weight loss: Not applicable Eating poorly because of decreased appetite: No Nutrition screen score: 0 Nutrition Risks: No Nutritional Risk Patient : No service: No Current occupational status: retired Cognitive needs: No Hearing needs: Yes Vision needs: No Meds Allergies Allergy/AdvReac Type Severity Reaction Status Date / Time amoxicillin Allergy Intermediate rash Verified 06/22/25 15:53 cephalexin Allergy Intermediate Rash Verified 06/22/25 15:53 Active Medications: Current Medications Acetaminophen (Acetaminophen 325 Mg Tablet) 650 mg PO Q6H PRN PRN Reason: Pain, Mild 1-3,fever,headache Apixaban (Apixaban 5 Mg Tablet) 5 mg PO BID [facility] Last Admin: 06/23/25 08:38 Dose: 5 mg Atorvastatin Calcium (Atorvastatin Calcium 20 Mg Tablet) 20 mg PO DAILY [facility] Last Admin: 06/23/25 09:48 Dose: 20 mg Calcium Carbonate (Calcium Carbonate 750 Mg Tab.Chew) 750 mg PO Q4H PRN PRN Reason: Heartburn Dextrose (Dextrose 50 % 25 Gm/50 Ml Syringe) 25 gm IVPUSH Q15M PRN; Protocol PRN Reason: per Hypoglycemia Standing Ord. Dofetilide (Dofetilide 125 Mcg Capsule) 125 mcg PO BID [facility] Stop: 06/23/25 21:01 Furosemide (Furosemide 20 Mg/2 Ml Vial) 20 mg IVPUSH DAILY [facility]; Protocol Last Admin: 06/23/25 08:38 Dose: 20 mg Glucose (Glucose Gel 15 Gm Gel..Gram.) 15 gm PO Q15M PRN; Protocol PRN Reason: per Hypoglycemia Standing Ord. Insulin Human Lispro (Insulin Lispro 100 Unit/Ml 3 Ml Vial) 0 unit SUBCUT QIDACHS [facility]; Protocol Last Admin: 06/23/25 07:38 Dose: Not Given Labetalol HCl (Labetalol Hcl 100 Mg/20 Ml Vial) 5 mg IVPUSH Q6H PRN PRN Reason: SBP>170 Last Admin: 06/22/25 21:15 Dose: 5 mg Lisinopril (Lisinopril 40 Mg Tablet) 40 mg PO DAILY [facility]; Protocol Last Admin: 06/23/25 09:48 Dose: 40 mg Magnesium Hydroxide (Milk Of Magnesia 30 Ml Oral.Susp) 30 ml PO DAILY PRN PRN Reason: Constipation Melatonin (Melatonin 3 Mg Tablet) 6 mg PO BEDTIME PRN PRN Reason: Insomnia Metoprolol Succinate (Metoprolol Succinate Er 50 Mg Tab.Er.24h) 50 mg PO DAILY [facility]; Protocol Last Admin: 06/23/25 09:48 Dose: 50 mg Sodium Chloride (0.9 % Sodium Chloride Flush 3 Ml Syringe) 3 ml IVFLUSH QSHIFT [facility] Last Admin: 06/23/25 08:38 Dose: 3 ml Physical Exam Vital Signs: Vital Signs: Last Vital Signs Temp 98.1 F 06/23/25 11:56 Pulse 87 06/23/25 11:56 Resp 18 06/23/25 11:56 BP 124/66 06/23/25 11:56 Pulse Ox 94 06/23/25 11:58 O2 Del Method Nasal Cannula 06/23/25 11:58 O2 Flow Rate 2 06/23/25 11:58 BMI result Body Mass Index 25.8 Const: General: cooperative, comfortable, no acute distress, well developed, alert, awake and Physically active Nutritional Appearance: average body habitus Orientation/consciousness: patient oriented x3 Limitations: no limitations HEENT: Head: Yes normocephalic and Yes atraumatic Neck: Neck: Yes trachea midline, Yes supple and Yes no JVD Resp: Effort & Inspection: normal respiratory effort Auscultation: crackles Cardio: Rhythm: abnormal rhythm irregularly irregular Heart sounds: S1 normal heart sound present, S2 normal heart sound present, no click, no gallops and no murmurs GI: Auscultation: normal bowel sounds Skin: General skin exam: no rashes or lesions noted Neuro: General: patient oriented x3 and no focal motor deficits Extrem: General: Yes no clubbing, cyanosis or edema Objective Labs and Meds 06/23/25 06:54 06/23/25 06:54 Lab results: Laboratory Results - last 24 hr 06/22/25 06/22/25 06/22/25 16:11 18:46 20:24 WBC 9.2 RBC 5.42 Hgb 14.0 Hct 43.4 MCV 80.1 MCH 25.8 L MCHC 32.3 RDW 20.2 H Plt Count 240 MPV 10.0 Immature Gran % (Auto) 0.4 Neut % (Auto) 67.4 Lymph % (Auto) 18.4 L [place] % (Auto) 10.6 Eos % (Auto) 2.4 Baso % (Auto) 0.8 Lymph # (Auto) 1.7 [place] # (Auto) 1.0 Eos # (Auto) 0.2 Baso # (Auto) 0.1 Abs Immat Gran (auto) 0.04 H Absolute Neuts (auto) 6.2 Absolute Nucleated RBC 0.000 Nucleated RBC % (auto) 0.0 PT 18.0 H INR 1.6 H Sodium 141 Potassium 5.6 H Chloride 109 H Carbon Dioxide 22 Anion Gap 16 BUN 44 H Creatinine 1.09 Estim Creat Clear Calc 33.4 Estimated GFR 48 POC Glucose 105 185 H Random Glucose 121 H Calcium 9.4 Magnesium 2.0 Total Bilirubin 0.6 AST 50 H ALT 27 Alkaline Phosphatase 112 Troponin I High Sens 11.0 B-Natriuretic Peptide 840 H Total Protein 8.0 Albumin 3.5 06/23/25 06/23/25 06/23/25 06:54 07:34 11:48 WBC 8.3 RBC 5.32 Hgb 13.7 Hct 42.2 MCV 79.3 L MCH 25.8 L MCHC 32.5 RDW 19.7 H Plt Count 207 MPV 9.7 Immature Gran % (Auto) Neut % (Auto) Lymph % (Auto) [place] % (Auto) Eos % (Auto) Baso % (Auto) Lymph # (Auto) [place] # (Auto) Eos # (Auto) Baso # (Auto) Abs Immat Gran (auto) Absolute Neuts (auto) Absolute Nucleated RBC 0.000 Nucleated RBC % (auto) 0.0 PT INR Sodium 144 Potassium 3.8 D Chloride 108 Carbon Dioxide 26 Anion Gap 14 BUN 38 H Creatinine 1.01 Estim Creat Clear Calc 36.5 Estimated GFR 52 POC Glucose 112 154 H Random Glucose 102 Calcium 9.0 Magnesium 1.9 Total Bilirubin AST ALT Alkaline Phosphatase Troponin I High Sens B-Natriuretic Peptide Total Protein Albumin Assessment and Plan (1) CHF exacerbation: Status: Acute CHF exacerbation in this elderly woman with hypoxemia. Receiving Lasix but no eyes and nose has been monitor. Continue Lasix IV. Strict intake and output chart needs to be pursued. Continue blood pressure control. Continue monitor electrolytes and replace as needed. Monitor BNP. (2) Persistent atrial fibrillation: Status: Acute Persistent atrial fibrillation most likely cause for her progressive heart failure symptoms. We discussed about management of rhythm control which may not be possible given her significant left atrial enlargement. She is currently off amiodarone therapy for the last many months and had recurrent atrial fibrillation related to that due to pulmonary toxicity. For now plan was to admit her inpatient for Tikosyn loading. Start 125 mcg b.i.d.. Monitor QT interval regularly in his setting of prolonged QRS. If there was no significant prolongation of QT interval will continue monitor her. And uptitrate Tikosyn dose. After 3 days of loading will pursue rhythm control approach with a synchronized cardioversion if she does not convert by herself. Continue full oral anticoagulation with Eliquis. Will follow with you Procedures Date of Service Date of Service: 06/23/25
--- NOTE | 2025-06-23 13:31 | HO.PM.IMPN ---
Subjective Subjective Date of Service: 06/23/25 Interval History: Continues to desat into 80s on RA; currently on 2L NC Denies SOB or difficulty breathing No acute events overnight No acute complaints Review of Systems Review of Systems: Yes all other systems are reviewed and are negative Physical Exam Exam: Exam: General: AOx3, no acute distress Resp: CTA bilaterally CVS: Irregularly irregular rhythm GI: +BS, NT, no distention Skin: Warm, dry Neuro: Cranial nerves II-XII grossly intact bilaterally. Motor grossly intact bilaterally Extremities: No edema Psych: Appropriate affect Vital Signs: Vital Signs: Last Vital Signs Temp 98.1 F 06/23/25 11:56 Pulse 87 06/23/25 11:56 Resp 18 06/23/25 11:56 BP 124/66 06/23/25 11:56 Pulse Ox 94 06/23/25 11:58 O2 Del Method Nasal Cannula 06/23/25 11:58 O2 Flow Rate 2 06/23/25 11:58 BMI result Body Mass Index 25.8 Objective Data Active Medications Acetaminophen (Acetaminophen 325 Mg Tablet) 650 mg PO Q6H PRN PRN Reason: Pain, Mild 1-3,fever,headache Apixaban (Apixaban 5 Mg Tablet) 5 mg PO BID [facility] Last Admin: 06/23/25 08:38 Dose: 5 mg Documented By: FLORA Atorvastatin Calcium (Atorvastatin Calcium 20 Mg Tablet) 20 mg PO DAILY [facility] Last Admin: 06/23/25 09:48 Dose: 20 mg Documented By: FLORA Calcium Carbonate (Calcium Carbonate 750 Mg Tab.Chew) 750 mg PO Q4H PRN PRN Reason: Heartburn Dextrose (Dextrose 50 % 25 Gm/50 Ml Syringe) 25 gm IVPUSH Q15M PRN; Protocol PRN Reason: per Hypoglycemia Standing Ord. Dofetilide (Dofetilide 125 Mcg Capsule) 125 mcg PO BID [facility] Stop: 06/23/25 21:01 Last Admin: 06/23/25 12:30 Dose: 125 mcg Documented By: FLORA Furosemide (Furosemide 20 Mg/2 Ml Vial) 20 mg IVPUSH DAILY [facility]; Protocol Last Admin: 06/23/25 08:38 Dose: 20 mg Documented By: FLORA Glucose (Glucose Gel 15 Gm Gel..Gram.) 15 gm PO Q15M PRN; Protocol PRN Reason: per Hypoglycemia Standing Ord. Insulin Human Lispro (Insulin Lispro 100 Unit/Ml 3 Ml Vial) 0 unit SUBCUT QIDACHS [facility]; Protocol Last Admin: 06/23/25 12:30 Dose: 2 unit Documented By: FLORA Labetalol HCl (Labetalol Hcl 100 Mg/20 Ml Vial) 5 mg IVPUSH Q6H PRN PRN Reason: SBP>170 Last Admin: 06/22/25 21:15 Dose: 5 mg Documented By: CHAGO Lisinopril (Lisinopril 40 Mg Tablet) 40 mg PO DAILY [facility]; Protocol Last Admin: 06/23/25 09:48 Dose: 40 mg Documented By: FLORA Magnesium Hydroxide (Milk Of Magnesia 30 Ml Oral.Susp) 30 ml PO DAILY PRN PRN Reason: Constipation Melatonin (Melatonin 3 Mg Tablet) 6 mg PO BEDTIME PRN PRN Reason: Insomnia Metoprolol Succinate (Metoprolol Succinate Er 50 Mg Tab.Er.24h) 50 mg PO DAILY [facility]; Protocol Last Admin: 06/23/25 09:48 Dose: 50 mg Documented By: FLORA Sodium Chloride (0.9 % Sodium Chloride Flush 3 Ml Syringe) [facility] Last Admin: 06/23/25 08:38 Dose: 3 ml Documented By: FLORA Labs 06/23/25 06:54 06/23/25 06:54 Labs: Laboratory Results - last 24 hr 06/22/25 06/22/25 06/22/25 16:11 18:46 20:24 MCV 80.1 MCH 25.8 L MCHC 32.3 RDW 20.2 H Plt Count 240 MPV 10.0 Immature Gran % (Auto) 0.4 Neut % (Auto) 67.4 Lymph % (Auto) 18.4 L [place] % (Auto) 10.6 Eos % (Auto) 2.4 Baso % (Auto) 0.8 Lymph # (Auto) 1.7 [place] # (Auto) 1.0 Eos # (Auto) 0.2 Baso # (Auto) 0.1 Abs Immat Gran (auto) 0.04 H Absolute Neuts (auto) 6.2 Absolute Nucleated RBC 0.000 Nucleated RBC % (auto) 0.0 PT 18.0 H INR 1.6 H Anion Gap 16 Estim Creat Clear Calc 33.4 Estimated GFR 48 POC Glucose 105 185 H Random Glucose 121 H Calcium 9.4 Magnesium 2.0 Total Bilirubin 0.6 AST 50 H ALT 27 Alkaline Phosphatase 112 B-Natriuretic Peptide 840 H Total Protein 8.0 Albumin 3.5 06/23/25 06/23/25 06/23/25 06:54 07:34 11:48 MCV 79.3 L MCH 25.8 L MCHC 32.5 RDW 19.7 H Plt Count 207 MPV 9.7 Immature Gran % (Auto) Neut % (Auto) Lymph % (Auto) [place] % (Auto) Eos % (Auto) Baso % (Auto) Lymph # (Auto) [place] # (Auto) Eos # (Auto) Baso # (Auto) Abs Immat Gran (auto) Absolute Neuts (auto) Absolute Nucleated RBC 0.000 Nucleated RBC % (auto) 0.0 PT INR Anion Gap 14 Estim Creat Clear Calc 36.5 Estimated GFR 52 POC Glucose 112 154 H Random Glucose 102 Calcium 9.0 Magnesium 1.9 Total Bilirubin AST ALT Alkaline Phosphatase B-Natriuretic Peptide Total Protein Albumin Assessment and Plan (1) CHF exacerbation: Status: Acute (2) Acute hypoxic respiratory failure: Status: Acute (3) Visit for monitoring Tikosyn therapy: Status: Acute Plan Pt is an 85-year-old female with a PMH significant for paroxysmal AFib on Eliquis, HTN, and HLD who is being directly admitted to the hospital from Cardiology for Tikosyn loading and monitoring. Pt is admitted to the hospital for acute hypoxic respiratory failure in the setting of CHF exacerbation, as well as for Tikosyn loading and monitoring. Acute hypoxic respiratory failure in the setting of CHF exacerbation Secondary to AFib Elevated BNP, desatting to 83% on RA, CXR with possible pulmonary edema Continue Lasix 20mg IV daily Strict I/O, daily weights, low salt diet Follow lytes Titrate supplemental O2>92, wean as tolerated Tikosyn loading Pt here for 3 day hospital stay for cardiac monitoring while being loaded with Tikosyn Will start on Tikosyn 125 mcg b.i.d. x1 day today Check EKG 2 hours after each dose to monitor QTc Will give 250mcg bid x1day tomorrow if QTc remains baseline, then 300mcg bid x1 day Follow creatinine, K+, Mag Cardiology following Monitor on telemetry HTN BP has been as high as 189/91 Continue lisinopril, metoprolol Labetalol 5 mg IV p.r.n. SBP >170 Paroxysmal AFib Continue metoprolol, Eliquis HLD Continue statin Full Code Attending:?Dr. Perez DVT Prophylaxis: On Eliquis Pt requires continued hospitalization for continued monitoring while loading Tikosyn as well as administration of supplemental oxygen and IV diuretics for CHF exacerbation. Quality Stroke Does the patient have a stroke diagnosis?: No VTE Prior VTE?: No VTE Risk Level:: Medical - moderate - high VTE Device Contraindication: Treatment Not Indicated VTE Drug Contraindication: N/A - Med Ordered
--- NOTE | 2025-06-23 14:37 | ECG_ITS ---
Test Reason : AFIB Blood Pressure : */* mmHG Vent. Rate : 69 BPM Atrial Rate : * BPM P-R Int : * ms QRS Dur : 118 ms QT Int : 474 ms P-R-T Axes : * -28 8 degrees QTcB Int : 507 ms Atrial fibrillation Right bundle branch block Abnormal ECG When compared with ECG of 23-Jun-2025 13:55, Minimal criteria for Anteroseptal infarct are no longer Present Nonspecific T wave abnormality has replaced inverted T waves in Inferior leads Referred By: Thania Albert Electronically Signed By: JOSH CHAWLA MD
[2025-06-23 16:37] LABS: Glucose, Whole Blood 117 mg/dL (60-115)
[2025-06-23 20:13] LABS: Glucose, Whole Blood 128 mg/dL (60-115)
--- NOTE | 2025-06-23 23:56 | ECG_ITS ---
Test Reason : AFIB Blood Pressure : */* mmHG Vent. Rate : 79 BPM Atrial Rate : 267 BPM P-R Int : * ms QRS Dur : 140 ms QT Int : 474 ms P-R-T Axes : * 263 95 degrees QTcB Int : 543 ms Atrial fibrillation Right superior axis deviation Non-specific intra-ventricular conduction block Abnormal ECG When compared with ECG of 23-Jun-2025 14:38, Atrial flutter has replaced Atrial fibrillation Non-specific intra-ventricular conduction block has replaced Right bundle branch block Referred By: Thania Albert Electronically Signed By: JOSH CHAWLA MD
[2025-06-24] VITALS (7 sets, daily range): BP systolic 121–143; BP diastolic 56–74; PULSE 61–85; RESP 12–20; TEMP 36.2–36.7; O2SAT 95–98; BMI 25.9
--- NOTE | 2025-06-24 | ECG_ITS ---
Test Reason : Evaluate for NSR Blood Pressure : */* mmHG Vent. Rate : 63 BPM Atrial Rate : 63 BPM P-R Int : 280 ms QRS Dur : 126 ms QT Int : 514 ms P-R-T Axes : 65 -33 16 degrees QTcB Int : 525 ms Sinus rhythm with 1st degree A-V block Left axis deviation Right bundle branch block Abnormal ECG When compared with ECG of 24-Jun-2025 11:16, Normal sinus rhythm has replaced Atrial flutter T wave inversion less evident in Anterior leads Referred By: Thania Albert Electronically Signed By: JOSH CHAWLA MD
[2025-06-24 06:58] LABS: Anion Gap 13 (12-20); Blood Urea Nitrogen 45 mg/dL (9-16); Calcium 9.0 mg/dL (8.4-10.2); Carbon Dioxide 26 mmol/L (22-29); Chloride 105 mmol/L (96-108); Creatinine Clr Calc Pharmacy 31.8; Estimated Glomerular Filt Rate 44; Magnesium 1.9 mg/dL (1.6-2.6); Potassium 4.0 mmol/L (3.3-5.1); Sodium 140 mmol/L (135-145)
[2025-06-24 07:06] LABS: Glucose, Whole Blood 118 mg/dL (60-115)
[2025-06-24] MEDS: 0.9 % Sodium Chloride Flush 3 ML SYRINGE IVFLUSH ×3 (08:24→23:38)
[2025-06-24] MEDS: Furosemide 20 MG/2 ML VIAL IVPUSH (08:27)
[2025-06-24] MEDS: Metoprolol Succinate ER 50 MG TAB.ER.24H PO (08:29)
--- NOTE | 2025-06-24 09:35 | PM.PNCARD ---
Subjective Subjective Date of Service: 06/24/25 Principal diagnosis: CHF, atrial fibrillation. Interval history: Patient is breathing better. Has diuresed about total of 50 cc as measured since yesterday. Remains in atrial fibrillation with controlled ventricular response. QT interval has remained stable at 474 milliseconds. Tikosyn dose was uptitrated today. Denies any palpitations. No lightheadedness, syncope. Blood pressure is stable. Creatinine is stable Review of Systems Review of Systems Yes all other systems are reviewed and are negative Physical Exam Vital Signs: Last Vital Signs Temp 97.1 F 06/24/25 07:05 Pulse 85 06/24/25 08:29 Resp 20 06/24/25 07:05 BP 121/56 L 06/24/25 08:29 Pulse Ox 96 06/24/25 07:05 O2 Del Method Nasal Cannula 06/24/25 07:05 O2 Flow Rate 2 06/24/25 07:05 BMI result Body Mass Index 25.9 Const General: cooperative, comfortable, no acute distress, well developed, alert, awake and Physically active Nutritional Appearance: average body habitus Orientation/consciousness: patient oriented x3 Limitations: no limitations HEENT Head: Yes normocephalic and Yes atraumatic Neck Neck: Yes trachea midline, Yes supple and Yes no JVD Resp Effort & Inspection: normal respiratory effort Auscultation: crackles (Have improved) Cardio Rhythm: abnormal rhythm irregularly irregular Heart sounds: S1 normal heart sound present, S2 normal heart sound present, no click, no gallops and no murmurs GI Auscultation: normal bowel sounds Skin General skin exam: no rashes or lesions noted Neuro General: patient oriented x3 and no focal motor deficits Extrem General: Yes no clubbing, cyanosis or edema Objective Labs and Meds 06/23/25 06:54 06/24/25 06:10 Lab results: Laboratory Results - last 24 hr 06/23/25 06/23/25 06/23/25 11:48 16:32 19:58 Sodium Potassium Chloride Carbon Dioxide Anion Gap BUN Creatinine Estim Creat Clear Calc Estimated GFR POC Glucose 154 H 117 H 128 H Random Glucose Calcium Magnesium 06/24/25 06/24/25 06:10 07:02 Sodium 140 Potassium 4.0 Chloride 105 Carbon Dioxide 26 Anion Gap 13 BUN 45 H Creatinine 1.16 Estim Creat Clear Calc 31.8 Estimated GFR 44 POC Glucose 118 H Random Glucose 115 Calcium 9.0 Magnesium 1.9 Progress Note: A&P Assessment and plan (1) CHF exacerbation: Status: Acute Assessment and Plan: CHF exacerbation, clinically doing better. Continue monitor renal function. Please check BNP tomorrow and electrolytes. Add Farxiga 5 mg to her regimen. Will pursue rhythm control approach once she is completely loaded with Tikosyn therapy see below. Continue blood pressure control. Advise out of bed to chair with incentive spirometry and ambulate as tolerated. (2) Persistent atrial fibrillation: Status: Acute Assessment and Plan: Persistent atrial fibrillation progressive heart failure syndrome. Clinically rate is well controlled. Tolerating current Tikosyn dose. He has been I have uptitrate it today. Continue monitor QT interval on the EKG. Given AFib QTC interval will be difficult to monitor. Continue uptitrate Tikosyn to 500 mcg b.i.d. tomorrow. If tolerated well will pursue synchronized cardioversion on Sunday. Continue full oral anticoagulation with Eliquis. Will follow with you Time Spent With Patient Time: Total time managing care of this patient today ____ minutes. Progress Note: Quality Stroke Does the patient have a stroke diagnosis?: No Procedures Date of Service Date of Service: 06/24/25
--- NOTE | 2025-06-24 10:58 | ECG_ITS ---
Test Reason : QT,QTC Blood Pressure : */* mmHG Vent. Rate : 74 BPM Atrial Rate : 87 BPM P-R Int : * ms QRS Dur : 122 ms QT Int : 478 ms P-R-T Axes : * -40 105 degrees QTcB Int : 530 ms Atrial fibrillation Left axis deviation Right bundle branch block T wave abnormality, consider lateral ischemia Abnormal ECG When compared with ECG of 23-Jun-2025 23:56, Right bundle branch block has replaced Non-specific intra-ventricular conduction block Referred By: Arturo Tucker Electronically Signed By: ARTURO TUCKER MD
[2025-06-24 12:07] LABS: Glucose, Whole Blood 147 mg/dL (60-115)
--- NOTE | 2025-06-24 12:51 | HO.PM.IMPN ---
Subjective Subjective Date of Service: 06/24/25 Interval History: Feeling better, breathing better No difficulty breathing or SOB No acute events overnight Received first day of Tikosyn loading without QT prologation above baseline Review of Systems Review of Systems: Yes all other systems are reviewed and are negative Physical Exam Exam: Exam: General: AOx3, no acute distress Resp: CTA bilaterally. No wheezing, rhonchi or crackles CVS: Irregularly irregular rhythm GI: Soft, NT, no distention Skin: Warm, dry Neuro: Cranial nerves II-XII grossly intact bilaterally. Motor grossly intact bilaterally Extremities: No edema Psych: Appropriate affect Vital Signs: Vital Signs: Last Vital Signs Temp 97.8 F 06/24/25 11:35 Pulse 74 06/24/25 11:35 Resp 20 06/24/25 11:35 BP 125/73 06/24/25 11:35 Pulse Ox 96 06/24/25 11:35 O2 Del Method Nasal Cannula 06/24/25 11:35 O2 Flow Rate 2 06/24/25 11:35 BMI result Body Mass Index 25.9 Objective Data Active Medications Acetaminophen (Acetaminophen 325 Mg Tablet) 650 mg PO Q6H PRN PRN Reason: Pain, Mild 1-3,fever,headache Apixaban (Apixaban 5 Mg Tablet) 5 mg PO BID COUNTS INCLUDE 234 BEDS AT THE [facility] Last Admin: 06/24/25 08:25 Dose: 5 mg Documented By: MARIA L Atorvastatin Calcium (Atorvastatin Calcium 20 Mg Tablet) 20 mg PO DAILY COUNTS INCLUDE 234 BEDS AT THE [facility] Last Admin: 06/24/25 08:24 Dose: 20 mg Documented By: MARIA L Calcium Carbonate (Calcium Carbonate 750 Mg Tab.Chew) 750 mg PO Q4H PRN PRN Reason: Heartburn Dextrose (Dextrose 50 % 25 Gm/50 Ml Syringe) 25 gm IVPUSH Q15M PRN; Protocol PRN Reason: per Hypoglycemia Standing Ord. Dofetilide (Dofetilide 125 Mcg Capsule) 250 mcg PO BID COUNTS INCLUDE 234 BEDS AT THE [facility] Stop: 06/24/25 21:01 Last Admin: 06/24/25 08:25 Dose: 250 mcg Documented By: MARIA L Furosemide (Furosemide 20 Mg/2 Ml Vial) 20 mg IVPUSH DAILY COUNTS INCLUDE 234 BEDS AT THE [facility]; Protocol Last Admin: 06/24/25 08:27 Dose: 20 mg Documented By: MARIA L Glucose (Glucose Gel 15 Gm Gel..Gram.) 15 gm PO Q15M PRN; Protocol PRN Reason: per Hypoglycemia Standing Ord. Insulin Human Lispro (Insulin Lispro 100 Unit/Ml 3 Ml Vial) 0 unit SUBCUT QIDACHS COUNTS INCLUDE 234 BEDS AT THE [facility]; Protocol Last Admin: 06/24/25 12:08 Dose: Not Given Documented By: LILLY Non-Admin Reason: No Insulin Coverage Labetalol HCl (Labetalol Hcl 100 Mg/20 Ml Vial) 5 mg IVPUSH Q6H PRN PRN Reason: SBP>170 Last Admin: 06/22/25 21:15 Dose: 5 mg Documented By: CHAGO Lisinopril (Lisinopril 40 Mg Tablet) 40 mg PO DAILY COUNTS INCLUDE 234 BEDS AT THE [facility]; Protocol Last Admin: 06/24/25 08:29 Dose: 40 mg Documented By: MARIA L Magnesium Hydroxide (Milk Of Magnesia 30 Ml Oral.Susp) 30 ml PO DAILY PRN PRN Reason: Constipation Melatonin (Melatonin 3 Mg Tablet) 6 mg PO BEDTIME PRN PRN Reason: Insomnia Metoprolol Succinate (Metoprolol Succinate Er 50 Mg Tab.Er.24h) 50 mg PO DAILY COUNTS INCLUDE 234 BEDS AT THE [facility]; Protocol Last Admin: 06/24/25 08:29 Dose: 50 mg Documented By: MARIA L Sodium Chloride (0.9 % Sodium Chloride Flush 3 Ml Syringe) [facility] Last Admin: 06/24/25 08:24 Dose: 3 ml Documented By: MARIA L Labs 06/23/25 06:54 06/24/25 06:10 Labs: Laboratory Results - last 24 hr 06/23/25 06/23/25 06/24/25 16:32 19:58 06:10 Anion Gap 13 Estim Creat Clear Calc 31.8 Estimated GFR 44 POC Glucose 117 H 128 H Random Glucose 115 Calcium 9.0 Magnesium 1.9 06/24/25 06/24/25 07:02 11:28 Anion Gap Estim Creat Clear Calc Estimated GFR POC Glucose 118 H 147 H Random Glucose Calcium Magnesium Assessment and Plan (1) (HFpEF) heart failure with preserved ejection fraction: Status: Acute (2) Visit for monitoring Tikosyn therapy: Status: Acute Plan Pt is an 85-year-old female with a PMH significant for paroxysmal AFib on Eliquis, HTN, and HLD who is being directly admitted to the hospital from Cardiology for Tikosyn loading and monitoring. Pt is admitted to the hospital for acute hypoxic respiratory failure in the setting of CHF exacerbation, as well as for Tikosyn loading and monitoring. Acute hypoxic respiratory failure in the setting of CHF exacerbation Secondary to AFib Elevated BNP, desatting to 83% on RA, CXR with possible pulmonary edema Continue Lasix 20mg IV daily today, switch to po tomorrow Strict I/O, daily weights, low salt diet Follow lytes Titrate supplemental O2>92, wean as tolerated Tikosyn loading Pt here for 3 day hospital stay for cardiac monitoring while being loaded with Tikosyn Will increase to Tikosyn 250 mcg b.i.d. x1 day today Check EKG 2 hours after each dose to monitor QTc If QTc remains baseline will give 300mcg bid x1 day tomorrow Plan is for cardioversion on Sunday if necessary Follow creatinine, K+, Mag Cardiology following Monitor on telemetry HTN BP has been as high as 189/91, much better controlled recently Continue lisinopril, metoprolol Labetalol 5 mg IV p.r.n. SBP >170 Paroxysmal AFib Continue metoprolol, Eliquis HLD Continue statin Full Code Attending:?Dr. Perez DVT Prophylaxis: On Eliquis Pt requires continued hospitalization for continued monitoring while loading Tikosyn as well as administration of supplemental oxygen and diuretics for CHF exacerbation. Quality Stroke Does the patient have a stroke diagnosis?: No VTE Prior VTE?: No VTE Risk Level:: Medical - moderate - high VTE Device Contraindication: Treatment Not Indicated VTE Drug Contraindication: N/A - Med Ordered
--- NOTE | 2025-06-24 15:57 | MHC.CM.PN ---
EMR reviewed and per MD rounds, pt is not medically cleared for discharge due to management of CHF exacerbation/tikosyn loading.
[2025-06-24 16:41] LABS: Glucose, Whole Blood 110 mg/dL (60-115)
[2025-06-24 20:53] LABS: Glucose, Whole Blood 124 mg/dL (60-115)
--- NOTE | 2025-06-24 22:32 | ECG_ITS ---
Test Reason : AFIB Blood Pressure : */* mmHG Vent. Rate : 67 BPM Atrial Rate : * BPM P-R Int : * ms QRS Dur : 128 ms QT Int : 490 ms P-R-T Axes : * -42 35 degrees QTcB Int : 517 ms Atrial flutter has replaced Normal sinus rhythm Left axis deviation Right bundle branch block Abnormal ECG When compared with ECG of 24-Jun-2025 16:49, Atrial flutter has replaced Sinus rhythm Referred By: Thania Albert Electronically Signed By: JOSH CHAWLA MD
[2025-06-25] VITALS (7 sets, daily range): BP systolic 109–132; BP diastolic 55–62; PULSE 56–66; RESP 16–20; TEMP 36.2–36.8; O2SAT 93–100; BMI 25.7
--- NOTE | 2025-06-25 07:15 | P.CDIM_ITS ---
PROVIDER RESPONSE TEXT: To clarify, the appropriate diagnosis supported by the clinical indicators: Systolic: acute QUERY TEXT: PHYSICIAN'S DOCUMENTATION REQUEST Date of Query: 06/24/2025 07:32 AM EDT Patient Name: Rosie Guerrero Admit Date: 06/22/2025 Dear Thania SMITH, A review of the medical record indicates additional documentation may be needed. Please review below and update the documentation accordingly. Clinical Indicators: Cardiology consultation note dated 06/23/25 - Patient came to ED noted to be hypoxemic with pulse ox 83% and findings suggestive of CHF. Lasix given. Progress note 06/23/25 - Acute hypoxic respiratory failure in the setting of CHF exacerbation. Secondary to Afib Continue IV Lasix Strict I/O, daily weights, low salt diet. Please provide further specificity regarding the most likely type and acuity of CHF you are evaluating, treating, or monitoring. Systolic Please specify if Acute, Chronic, or Acute on chronic, or Unable to determine Diastolic Please specify if Acute, Chronic, or Acute on chronic, or Unable to determine Combined Systolic/Diastolic Please specify if Acute, Chronic, or Acute on chronic, or Unable to determine Other (explain) Clinically unable to determine (explain) Thank you, Lucina Kemp, CCS, CDIS Use of terms such as suspected, likely, concern for, or probable (associated with a specific diagnosis that is being evaluated, monitored, or treated as if it exists) are acceptable and can be coded in the inpatient setting, when documented at the time of discharge. Please use your independent medical judgment in providing your response. THIS QUERY IS PART OF THE PERMANENT MEDICAL RECORD
[2025-06-25 07:44] LABS: Glucose, Whole Blood 108 mg/dL (60-115)
[2025-06-25 07:50] LABS: Anion Gap 14 (12-20); Blood Urea Nitrogen 62 mg/dL (9-16); Calcium 9.1 mg/dL (8.4-10.2); Carbon Dioxide 26 mmol/L (22-29); Chloride 104 mmol/L (96-108); Creatinine Clr Calc Pharmacy 33.2; Estimated Glomerular Filt Rate 47; Magnesium 2.1 mg/dL (1.6-2.6); Potassium 4.1 mmol/L (3.3-5.1); Sodium 140 mmol/L (135-145)
[2025-06-25 09:12] LABS: B Type Natriuretic Peptide 269 pg/mL (<100)
[2025-06-25] MEDS: 0.9 % Sodium Chloride Flush 3 ML SYRINGE IVFLUSH ×3 (09:15→20:41)
[2025-06-25] MEDS: Metoprolol Succinate ER 50 MG TAB.ER.24H PO (09:17)
--- NOTE | 2025-06-25 10:13 | PM.PNCARD ---
Subjective Subjective Date of Service: 06/25/25 Principal diagnosis: CHF, atrial fibrillation. Interval history: Abimael converted to sinus rhythm yesterday afternoon and then reverted back to atrial fibrillation last night. Again to a.m. she converted back to sinus rhythm. Patient feels better. Shortness of breath is better. She is still using oxygen but does not think she needs to be. Review of Systems Constitutional: Reports no additional constitutional complaints Cardiovascular: Reports no additional cardiovascular complaints Respiratory: Reports no additional respiratory complaints Gastrointestinal: Reports no additional gastrointestinal complaints Genitourinary: Reports no additional female genitourinary complaints Reports system reviewed and no additional complaints, except as documented Psychiatric: Reports no additional psychiatric complaints Physical Exam Vital Signs: Last Vital Signs Temp 97.4 F 06/25/25 07:24 Pulse 58 06/25/25 07:24 Resp 20 06/25/25 07:24 BP 113/55 L 06/25/25 07:24 Pulse Ox 96 06/25/25 07:24 O2 Del Method Nasal Cannula 06/25/25 07:24 O2 Flow Rate 2 06/25/25 07:24 BMI result Body Mass Index 25.7 Const General: cooperative, comfortable, no acute distress, well developed, alert, awake and Physically active Nutritional Appearance: average body habitus Orientation/consciousness: patient oriented x3 Limitations: no limitations HEENT Head: Yes normocephalic and Yes atraumatic Neck Neck: Yes trachea midline, Yes supple and Yes no JVD Resp Effort & Inspection: normal respiratory effort Auscultation: crackles (Have improved) Cardio Rate: regular rate Rhythm: regular rhythm Heart sounds: S1 normal heart sound present, S2 normal heart sound present, no click, no gallops and no murmurs GI Auscultation: normal bowel sounds Skin General skin exam: no rashes or lesions noted Neuro General: patient oriented x3 and no focal motor deficits Extrem General: Yes no clubbing, cyanosis or edema Psych Appearance: grossly normal Objective Labs and Meds 06/23/25 06:54 06/25/25 06:37 Lab results: Laboratory Results - last 24 hr 06/24/25 06/24/25 06/24/25 11:28 16:27 20:40 Sodium Potassium Chloride Carbon Dioxide Anion Gap BUN Creatinine Estim Creat Clear Calc Estimated GFR POC Glucose 147 H 110 124 H Random Glucose Calcium Magnesium B-Natriuretic Peptide 06/25/25 06/25/25 06:37 07:20 Sodium 140 Potassium 4.1 Chloride 104 Carbon Dioxide 26 Anion Gap 14 BUN 62 H Creatinine 1.11 Estim Creat Clear Calc 33.2 Estimated GFR 47 POC Glucose 108 Random Glucose 103 Calcium 9.1 Magnesium 2.1 B-Natriuretic Peptide 269 H Progress Note: A&P Assessment and plan (1) Paroxysmal atrial fibrillation: Status: Acute Assessment and Plan: Paroxysmal atrial fibrillation converted to sinus rhythm after Tikosyn loading. Was informed by pharmacy that there has been down trending in his her creatinine clearance to below 35. Also calculated her JT prolongation index EKGs from yesterday when she was in sinus rhythm at was calculating at 113 milliseconds which is slightly elevated. Will therefore reduce the dose to 125 mcg b.i.d.. Discussed with pharmacy. Will also discussed with hospitalist team. Continue metoprolol therapy. Avoidance of stimulants was discussed. Continue full disclosure cardiac monitoring as well as continue to monitor EKGs and JT prolongation index (2) CHF exacerbation: Status: Acute Assessment and Plan: CHF exacerbation which appears clinically much improved. She still has some crackles most likely related to underlying pulmonary parenchymal disease. Hold p.o. diuretics today. Continue Jardiance. Continue rhythm control approach as above. Follow renal function tomorrow. Will follow with you Time Spent With Patient Time: Total time managing care of this patient today ____ minutes. Progress Note: Quality Stroke Does the patient have a stroke diagnosis?: No Procedures Date of Service Date of Service: 06/25/25
[2025-06-25 11:46] LABS: Glucose, Whole Blood 202 mg/dL (60-115)
--- NOTE | 2025-06-25 12:45 | ECG_ITS ---
Test Reason : qtc Blood Pressure : */* mmHG Vent. Rate : 61 BPM Atrial Rate : 61 BPM P-R Int : 282 ms QRS Dur : 118 ms QT Int : 498 ms P-R-T Axes : 43 -31 37 degrees QTcB Int : 501 ms Sinus rhythm with 1st degree A-V block Left axis deviation Right bundle branch block Abnormal ECG When compared with ECG of 24-Jun-2025 22:32, Sinus rhythm has replaced Atrial flutter Nonspecific T wave abnormality, worse in Lateral leads Referred By: Thania Albert Electronically Signed By: JOSH CHAWLA MD
--- NOTE | 2025-06-25 14:01 | P.PNIM_ITS ---
Subjective Subjective Date of Service: 06/25/25 Physical Exam 2 Vital Signs: Vital Signs: Last Vital Signs Temp 97.2 F 06/25/25 11:29 Pulse 64 06/25/25 11:29 Resp 20 06/25/25 11:29 BP 115/62 06/25/25 11:29 Pulse Ox 98 06/25/25 11:29 O2 Del Method Nasal Cannula 06/25/25 11:29 O2 Flow Rate 2 06/25/25 11:29 BMI result Body Mass Index 25.7 Objective Data Active Medications Acetaminophen (Acetaminophen 325 Mg Tablet) 650 mg PO Q6H PRN PRN Reason: Pain, Mild 1-3,fever,headache Apixaban (Apixaban 5 Mg Tablet) 5 mg PO BID [facility] Last Admin: 06/25/25 09:17 Dose: 5 mg Documented By: NEFTALI Atorvastatin Calcium (Atorvastatin Calcium 20 Mg Tablet) 20 mg PO DAILY [facility] Last Admin: 06/25/25 09:17 Dose: 20 mg Documented By: NEFTALI Calcium Carbonate (Calcium Carbonate 750 Mg Tab.Chew) 750 mg PO Q4H PRN PRN Reason: Heartburn Dextrose (Dextrose 50 % 25 Gm/50 Ml Syringe) 25 gm IVPUSH Q15M PRN; Protocol PRN Reason: per Hypoglycemia Standing Ord. Dofetilide (Dofetilide 125 Mcg Capsule) 125 mcg PO BID [facility] Stop: 06/25/25 21:01 Last Admin: 06/25/25 10:43 Dose: 125 mcg Documented By: NEFTALI Furosemide (Furosemide 20 Mg Tablet) 20 mg PO DAILY [facility]; Protocol On Hold: 06/25/25 10:23 Last Admin: 06/25/25 09:17 Dose: 20 mg Documented By: NEFTALI Glucose (Glucose Gel 15 Gm Gel..Gram.) 15 gm PO Q15M PRN; Protocol PRN Reason: per Hypoglycemia Standing Ord. Insulin Human Lispro (Insulin Lispro 100 Unit/Ml 3 Ml Vial) 0 unit SUBCUT QIDACHS [facility]; Protocol Last Admin: 06/25/25 12:30 Dose: 2 unit Documented By: NEFTALI Labetalol HCl (Labetalol Hcl 100 Mg/20 Ml Vial) 5 mg IVPUSH Q6H PRN PRN Reason: SBP>170 Last Admin: 06/22/25 21:15 Dose: 5 mg Documented By: CHAGO Lisinopril (Lisinopril 40 Mg Tablet) 40 mg PO DAILY [facility]; Protocol Last Admin: 06/25/25 09:17 Dose: 40 mg Documented By: NEFTALI Magnesium Hydroxide (Milk Of Magnesia 30 Ml Oral.Susp) 30 ml PO DAILY PRN PRN Reason: Constipation Melatonin (Melatonin 3 Mg Tablet) 6 mg PO BEDTIME PRN PRN Reason: Insomnia Metoprolol Succinate (Metoprolol Succinate Er 50 Mg Tab.Er.24h) 50 mg PO DAILY [facility]; Protocol Last Admin: 06/25/25 09:17 Dose: 50 mg Documented By: NEFTALI Sodium Chloride (0.9 % Sodium Chloride Flush 3 Ml Syringe) 3 ml IVFLUSH QSHIFT [facility] Last Admin: 06/25/25 09:15 Dose: 3 ml Documented By: NEFTALI Labs 06/23/25 06:54 06/25/25 06:37 Labs: Laboratory Results - last 24 hr 06/24/25 06/24/25 06/25/25 16:27 20:40 06:37 Anion Gap 14 Estim Creat Clear Calc 33.2 Estimated GFR 47 POC Glucose 110 124 H Random Glucose 103 Calcium 9.1 Magnesium 2.1 B-Natriuretic Peptide 269 H 06/25/25 06/25/25 07:20 11:27 Anion Gap Estim Creat Clear Calc Estimated GFR POC Glucose 108 202 H Random Glucose Calcium Magnesium B-Natriuretic Peptide Assessment and Plan (1) Visit for monitoring Tikosyn therapy: Status: Acute Plan Pt is an 85-year-old female with a PMH significant for paroxysmal AFib on Eliquis, HTN, and HLD who is being directly admitted to the hospital from Cardiology for Tikosyn loading and monitoring. Pt is admitted to the hospital for acute hypoxic respiratory failure in the setting of CHF exacerbation, as well as for Tikosyn loading and monitoring. Acute hypoxic respiratory failure in the setting of CHF exacerbation Secondary to AFib Elevated BNP, desatting to 83% on RA, CXR with possible pulmonary edemae Improved with Lasix IV; no longer on O2, BNP improved D/C IV Lasix Strict I/O, daily weights, low salt diet Follow lytes Tikosyn loading Pt here for 3 day hospital stay for cardiac monitoring while being loaded with Tikosyn Converted to sinus yesterday afternoon for a few hours, then again overnight at around 2:00; still in NSR Will give Tikosyn 125 mcg b.i.d. today Check EKG 2 hours after each dose to monitor QTc QTc has remained baseline; JT Prolongation Index mildly elevated at 116 but improved from previous EKGs Likely can be d/c tomorrow; cardioversion does not appear necessary Follow creatinine, K+, Mag Cardiology following Monitor on telemetry HTN BP has been as high as 189/91, much better controlled recently Continue lisinopril, metoprolol Labetalol 5 mg IV p.r.n. SBP >170 Paroxysmal AFib Continue metoprolol, Eliquis HLD Continue statin Full Code Attending:?Dr. Perez DVT Prophylaxis: On Eliquis Pt requires continued hospitalization for continued monitoring while loading Tikosyn as well as administration of supplemental oxygen and diuretics for CHF exacerbation. Will likely be discharged tomorrow. Quality Stroke Does the patient have a stroke diagnosis?: No VTE Prior VTE?: No VTE Risk Level:: Medical - moderate - high VTE Device Contraindication: Treatment Not Indicated VTE Drug Contraindication: N/A - Med Ordered
[2025-06-25 15:54] LABS: Glucose, Whole Blood 91 mg/dL (60-115)
[2025-06-25 19:50] LABS: Glucose, Whole Blood 133 mg/dL (60-115)
--- NOTE | 2025-06-25 22:45 | ECG_ITS ---
Test Reason : tikosyn monitoring Blood Pressure : */* mmHG Vent. Rate : 66 BPM Atrial Rate : 66 BPM P-R Int : 302 ms QRS Dur : 126 ms QT Int : 518 ms P-R-T Axes : 69 -36 44 degrees QTcB Int : 543 ms Poor data quality, interpretation may be adversely affected Sinus rhythm with 1st degree A-V block Left axis deviation Right bundle branch block Abnormal ECG When compared with ECG of 25-Jun-2025 12:45, No significant change was found Referred By: Tomer Gan Electronically Signed By: JOSH CHAWLA MD
[2025-06-26] VITALS (7 sets, daily range): BP systolic 109–178; BP diastolic 53–83; PULSE 50–69; RESP 16–20; TEMP 36.2–36.8; O2SAT 90–100; BMI 25.6
--- NOTE | 2025-06-26 | ECG_ITS ---
Test Reason : tikosyn monitoring Blood Pressure : */* mmHG Vent. Rate : 63 BPM Atrial Rate : 63 BPM P-R Int : 280 ms QRS Dur : 122 ms QT Int : 480 ms P-R-T Axes : 66 -33 1 degrees QTcB Int : 491 ms Sinus rhythm with 1st degree A-V block with occasional Premature ventricular complexes Left axis deviation Right bundle branch block T wave abnormality, consider lateral ischemia Abnormal ECG When compared with ECG of 25-Jun-2025 22:47, Premature ventricular complexes are now Present Nonspecific T wave abnormality, worse in Inferior leads T wave inversion more evident in Anterior leads QT has shortened Referred By: Thania Albert Electronically Signed By: JOSH CHAWLA MD
[2025-06-26 07:15] LABS: Glucose, Whole Blood 126 mg/dL (60-115)
[2025-06-26] MEDS: Metoprolol Succinate ER 50 MG TAB.ER.24H PO (08:17)
[2025-06-26] MEDS: 0.9 % Sodium Chloride Flush 3 ML SYRINGE IVFLUSH ×3 (08:24→20:19)
[2025-06-26 10:08] LABS: Anion Gap 13 (12-20); Blood Urea Nitrogen 69 mg/dL (9-16); Calcium 9.2 mg/dL (8.4-10.2); Carbon Dioxide 27 mmol/L (22-29); Chloride 104 mmol/L (96-108); Creatinine Clr Calc Pharmacy 30.6; Estimated Glomerular Filt Rate 43; Magnesium 2.4 mg/dL (1.6-2.6); Potassium 4.8 mmol/L (3.3-5.1); Sodium 139 mmol/L (135-145)
--- NOTE | 2025-06-26 10:10 | PM.PNCARD ---
Subjective Subjective Date of Service: 06/26/25 Principal diagnosis: CHF, atrial fibrillation. Interval history: Patient remains in sinus rhythm. However she continues to have oxygen requirement and desats at rest. Oxygen desaturation study has been requested. Her creatinine and BUN had increased slightly. Patient has diuresed well and BNP is downtrending. Her Tikosyn dose was readjusted to 125 mcg b.i.d.. Review of Systems Review of Systems Yes all other systems are reviewed and are negative Physical Exam Vital Signs: Last Vital Signs Temp 98.2 F 06/26/25 08:00 Pulse 63 06/26/25 08:00 Resp 18 06/26/25 08:00 BP 126/59 L 06/26/25 08:00 Pulse Ox 91 L 06/26/25 08:00 O2 Del Method Room Air 06/26/25 08:00 O2 Flow Rate 2 06/26/25 03:38 BMI result Body Mass Index 25.6 Const General: cooperative, comfortable, no acute distress, well developed, alert, awake and Physically active Nutritional Appearance: average body habitus Orientation/consciousness: patient oriented x3 Limitations: no limitations HEENT Head: Yes normocephalic and Yes atraumatic Neck Neck: Yes trachea midline, Yes supple and Yes no JVD Resp Effort & Inspection: normal respiratory effort Auscultation: crackles (Have improved) Cardio Rate: regular rate Rhythm: regular rhythm Heart sounds: S1 normal heart sound present, S2 normal heart sound present, no click, no gallops and no murmurs GI Auscultation: normal bowel sounds Skin General skin exam: no rashes or lesions noted Neuro General: patient oriented x3 and no focal motor deficits Extrem General: Yes no clubbing, cyanosis or edema Psych Appearance: grossly normal Objective Labs and Meds 06/23/25 06:54 06/26/25 09:45 Lab results: Laboratory Results - last 24 hr 06/25/25 06/25/25 06/25/25 11:27 15:49 19:46 Sodium Potassium Chloride Carbon Dioxide Anion Gap BUN Creatinine Estim Creat Clear Calc Estimated GFR POC Glucose 202 H 91 133 H Random Glucose Calcium Magnesium 06/26/25 06/26/25 07:11 09:45 Sodium 139 Potassium 4.8 Chloride 104 Carbon Dioxide 27 Anion Gap 13 BUN 69 H Creatinine 1.20 Estim Creat Clear Calc 30.6 Estimated GFR 43 POC Glucose 126 H Random Glucose 201 H Calcium 9.2 Magnesium 2.4 Progress Note: A&P Assessment and plan (1) Paroxysmal atrial fibrillation: Status: Acute Assessment and Plan: Patient status post converted on loading with Tikosyn. Doing well. Will continue with Tikosyn at 125 mcg b.i.d.. Recalculated JT prolongation index which is at 112 milliseconds today. Continue 125 mg b.i.d.. Continue full oral anticoagulation with Eliquis. Continue monitor renal function closely. (2) CHF exacerbation: Status: Acute Assessment and Plan: On admission CHF exacerbation with elevated BNP. Has been diuresed and currently on oral Lasix which has been held and should be held today. Continue Jardiance/Farxiga. Continue rhythm control approach as above. However today does not appear to be in overt heart failure but remains persistently hypoxemic, see below. I do not think the patient needs further diuresis at this point in time. (3) Acute hypoxic respiratory failure: Status: Acute Assessment and Plan: Patient remains hypoxemic despite adequate diuresis I do not think this is related to heart failure. Most likely some kind of underlying pulmonary parenchymal process possible fibrosis or interstitial inflammatory disorder. I would consider noncontrast high-resolution CTA of the lungs and pulmonary consultation to guide therapy. He would also benefit from oxygen therapy at home at least till her hypoxemia resolves. Will sign of the case. From cardiac perspective patient can be discharged and will set up for outpatient follow-up. Time Spent With Patient Time: Total time managing care of this patient today ____ minutes. Progress Note: Quality Stroke Does the patient have a stroke diagnosis?: No Procedures Date of Service Date of Service: 06/26/25
[2025-06-26 11:18] LABS: Glucose, Whole Blood 163 mg/dL (60-115)
--- NOTE | 2025-06-26 13:27 | P.CONPL_ITS ---
History of Present Illness History of Present Illness Consult date: 06/26/25 Chief complaint: tikosyn loading Narrative: This is an inpatient pulmonary consultation. The patient is an 85-year-old female with a PMH significant for paroxysmal AFib on Eliquis, HTN, and HLD who is being directly admitted to the hospital from Cardiology for Tikosyn loading and monitoring. Pt follows with Dr. Tucker in Cardiology who previously had rhythm control on amiodarone, which was recently stopped due to concerns for pulmonary amiodarone toxicity. Since then pt has BNP has been steadily rising ad concern is for developing progressive heart failure. After consultation, pt wished to pursue rhythm control with Tikosyn which would require a 3 day hospital stay. Upon presentation to the hospital pt was noted to be hypoxic at 83%, and labs were significant for elevated BNP as well as hyperkalemia of 5.6. EKG with QTc 508. Pt herself had no acute medical complaints, denies significant SOB or difficulty breathing at rest. No lightheadedness or dizziness. Denies shortness or breath or difficulty breathing. No fever, chills, nausea, vomiting. Pt is admitted to the hospital for acute hypoxic respiratory failure in the setting of CHF exacerbation, as well as for Tikosyn loading and monitoring. After several days in the hospital with diuresis the patient has still continued to have significant hypoxia. Therefore she did undergo a CT scan of the chest that I personally reviewed. She appears to have mosaic pattern consistent with areas of ground-glass opacities. She also has other nodular inflammatory changes. Is felt to be related to the amiodarone. At this point will go ahead and request additional blood work. Does not have significant procedures. Does not have any other systemic inflammatory symptoms. Will be reasonable to start her on Solu-Medrol to decrease the inflammation of the airways to try to help her with her gas exchange and ultimately will have a prednisone taper. Review of Systems 2 Constitutional: Constitutional: Denies fever(s) Eyes: Eyes: Reports no additional eye complaints ENT: Denies sore throat Cardiovascular: Cardiovascular: Denies chest pain and Reports dyspnea Respiratory: Respiratory: Reports dyspnea and Denies wheezing Gastrointestinal: Gastrointestinal: Reports no additional gastrointestinal complaints Musculoskeletal: Musculoskeletal: Reports no additional musculoskeletal complaints Hematologic/Lymphatic: Hematologic/Lymphatic: Reports no additional hematologic/lymphatic complaints Allergic/Immunologic: Allergic/Immunologic: Denies wheezing PMFSH Past Medical History Medical History Pneumonitis Paroxysmal atrial fibrillation Persistent atrial fibrillation Atrial flutter New onset a-fib Obesity Hypertension Family History Family History Mother No problems noted. Father No problems noted. Surgical History Surgical History History of nephrectomy, left Hx of cholecystectomy Social History Social History Household Members: None Housing: House Do you presently have visiting nurse or other home services: No Alcohol intake: never Comment: Refuses bed alarm Patient Tobacco Use Status: Never used Tobacco e-Cigarette/Vaping Use: Never Used Second Hand Smoke Exposure: No service: No Current occupational status: retired Cognitive needs: No Hearing needs: Yes Vision needs: No Meds Allergies Allergy/AdvReac Type Severity Reaction Status Date / Time amoxicillin Allergy Intermediate rash Verified 06/22/25 15:53 cephalexin Allergy Intermediate Rash Verified 06/22/25 15:53 Active Medications: Current Medications Acetaminophen (Acetaminophen 325 Mg Tablet) 650 mg PO Q6H PRN PRN Reason: Pain, Mild 1-3,fever,headache Apixaban (Apixaban 5 Mg Tablet) 5 mg PO BID [facility] Last Admin: 06/26/25 08:18 Dose: 5 mg Atorvastatin Calcium (Atorvastatin Calcium 20 Mg Tablet) 20 mg PO DAILY [facility] Last Admin: 06/26/25 08:18 Dose: 20 mg Calcium Carbonate (Calcium Carbonate 750 Mg Tab.Chew) 750 mg PO Q4H PRN PRN Reason: Heartburn Dextrose (Dextrose 50 % 25 Gm/50 Ml Syringe) 25 gm IVPUSH Q15M PRN; Protocol PRN Reason: per Hypoglycemia Standing Ord. Dofetilide (Dofetilide 125 Mcg Capsule) 125 mcg PO BID [facility] Last Admin: 06/26/25 12:39 Dose: 125 mcg Furosemide (Furosemide 20 Mg Tablet) 20 mg PO DAILY [facility]; Protocol On Hold: 06/25/25 10:23 Last Admin: 06/25/25 09:17 Dose: 20 mg Glucose (Glucose Gel 15 Gm Gel..Gram.) 15 gm PO Q15M PRN; Protocol PRN Reason: per Hypoglycemia Standing Ord. Insulin Human Lispro (Insulin Lispro 100 Unit/Ml 3 Ml Vial) 0 unit SUBCUT QIDACHS [facility]; Protocol Last Admin: 06/26/25 12:40 Dose: 2 unit Labetalol HCl (Labetalol Hcl 100 Mg/20 Ml Vial) 5 mg IVPUSH Q6H PRN PRN Reason: SBP>170 Last Admin: 06/22/25 21:15 Dose: 5 mg Lisinopril (Lisinopril 40 Mg Tablet) 40 mg PO DAILY [facility]; Protocol Last Admin: 06/26/25 08:16 Dose: 40 mg Magnesium Hydroxide (Milk Of Magnesia 30 Ml Oral.Susp) 30 ml PO DAILY PRN PRN Reason: Constipation Melatonin (Melatonin 3 Mg Tablet) 6 mg PO BEDTIME PRN PRN Reason: Insomnia Methylprednisolone Sodium Succinate (Methylprednisolone Sod Succ 40 Mg/Ml Vial) 40 mg IVPUSH ONCE ONE Stop: 06/26/25 13:11 Metoprolol Succinate (Metoprolol Succinate Er 50 Mg Tab.Er.24h) 50 mg PO DAILY [facility]; Protocol Last Admin: 06/26/25 08:17 Dose: 50 mg Sodium Chloride (0.9 % Sodium Chloride Flush 3 Ml Syringe) 3 ml IVFLUSH QSHIFT [facility] Last Admin: 06/26/25 08:24 Dose: 3 ml Physical Exam 2 Vital Signs: Vital Signs: Last Vital Signs Temp 97.7 F 06/26/25 11:52 Pulse 65 06/26/25 11:52 Resp 18 06/26/25 11:52 BP 163/72 H 06/26/25 11:52 Pulse Ox 92 06/26/25 11:52 O2 Del Method Room Air 06/26/25 11:52 O2 Flow Rate 2 06/26/25 03:38 BMI result Body Mass Index 25.6 Const: General: cooperative, comfortable, no acute distress, well developed, alert, awake and Physically active Nutritional Appearance: average body habitus Orientation/consciousness: patient oriented x3 Limitations: no limitations HEENT: Head: Yes normocephalic and Yes atraumatic Neck: Neck: Yes trachea midline, Yes supple and Yes no JVD Chest: Chest palpation & inspection: normal inspection of the chest Resp: Effort & Inspection: normal respiratory effort Auscultation: crackles Cardio: Rate: regular rate Rhythm: regular rhythm Heart sounds: S1 normal heart sound present, S2 normal heart sound present, no click, no gallops and no murmurs GI: Auscultation: normal bowel sounds Skin: General skin exam: no rashes or lesions noted Neuro: General: patient oriented x3 and no focal motor deficits Extrem: General: Yes no clubbing, cyanosis or edema Psych: Appearance: grossly normal Results Laboratory Findings 06/23/25 06:54 06/26/25 09:45 ABG, PT/INR, D-dimer: PT/INR, D-dimer PT 18.0 SEC (10.9-12.4) H 06/22/25 16:11 INR 1.6 (0.9-1.1) H 06/22/25 16:11 Abnormal lab findings: Abnormal Labs 06/22/25 06/22/25 06/23/25 16:11 20:24 06:54 MCV 79.3 L MCH 25.8 L 25.8 L RDW 20.2 H 19.7 H Lymph % (Auto) 18.4 L Abs Immat Gran (auto) 0.04 H PT 18.0 H INR 1.6 H Potassium 5.6 H Chloride 109 H BUN 44 H 38 H POC Glucose 185 H Random Glucose 121 H AST 50 H B-Natriuretic Peptide 840 H 06/23/25 06/23/25 06/23/25 11:48 16:32 19:58 MCV MCH RDW Lymph % (Auto) Abs Immat Gran (auto) PT INR Potassium Chloride BUN POC Glucose 154 H 117 H 128 H Random Glucose AST B-Natriuretic Peptide 06/24/25 06/24/25 06/24/25 06:10 07:02 11:28 MCV MCH RDW Lymph % (Auto) Abs Immat Gran (auto) PT INR Potassium Chloride BUN 45 H POC Glucose 118 H 147 H Random Glucose AST B-Natriuretic Peptide 06/24/25 06/25/25 06/25/25 20:40 06:37 11:27 MCV MCH RDW Lymph % (Auto) Abs Immat Gran (auto) PT INR Potassium Chloride BUN 62 H POC Glucose 124 H 202 H Random Glucose AST B-Natriuretic Peptide 269 H 06/25/25 06/26/25 06/26/25 19:46 07:11 09:45 MCV MCH RDW Lymph % (Auto) Abs Immat Gran (auto) PT INR Potassium Chloride BUN 69 H POC Glucose 133 H 126 H Random Glucose 201 H AST B-Natriuretic Peptide 06/26/25 11:13 MCV MCH RDW Lymph % (Auto) Abs Immat Gran (auto) PT INR Potassium Chloride BUN POC Glucose 163 H Random Glucose AST B-Natriuretic Peptide Assessment and Plan (1) Acute hypoxic respiratory failure: Status: Acute (2) CHF exacerbation: Qualifiers: Heart failure type: unspecified Qualified Code(s): I50.9 - Heart failure, unspecified Status: Acute (3) Pneumonitis: Status: Acute Plan Agree with the discontinuation of amiodarone Blood work to assess for pneumonitis Start Solu-Medrol 40 mg twice a day then transition to 40 mg prednisone with taper. Patient should decrease by 10 mg every 7 days until complete Repeat chest x-ray tomorrow Procedures Date of Service Date of Service: 06/28/25
--- NOTE | 2025-06-26 14:31 | MHC.CM.PN ---
Per rounds, pt. now on supplemental O2, which she was not on prior to hosp. stay. Requires further assessment from Pulmonary and Respiratory.
[2025-06-26 16:02] LABS: Glucose, Whole Blood 118 mg/dL (60-115)
--- NOTE | 2025-06-26 18:26 | HO.PM.IMPN ---
Subjective Subjective Date of Service: 06/26/25 Interval History: No complaints Has maintained sinus rhythm Noted to keep desatting into 80s when trying to be weaned off O2 Review of Systems Review of Systems: Yes all other systems are reviewed and are negative Physical Exam Exam: Exam: General: AOx3, no acute distress Resp: CTA bilaterally CVS: S1, S2, RRR GI: +BS, NT, no distention Skin: Warm, dry Neuro: Cranial nerves II-XII grossly intact bilaterally. Motor grossly intact bilaterally Extremities: No edema Psych: Appropriate affect Vital Signs: Vital Signs: Last Vital Signs Temp 98.2 F 06/26/25 16:00 Pulse 64 06/26/25 16:00 Resp 20 06/26/25 16:00 BP 133/69 06/26/25 16:00 Pulse Ox 91 L 06/26/25 16:00 O2 Del Method Nasal Cannula 06/26/25 16:00 O2 Flow Rate 2 06/26/25 16:00 BMI result Body Mass Index 25.6 Objective Data Active Medications Acetaminophen (Acetaminophen 325 Mg Tablet) 650 mg PO Q6H PRN PRN Reason: Pain, Mild 1-3,fever,headache Apixaban (Apixaban 5 Mg Tablet) 5 mg PO BID [facility] Last Admin: 06/26/25 08:18 Dose: 5 mg Documented By: NEFTALI Atorvastatin Calcium (Atorvastatin Calcium 20 Mg Tablet) 20 mg PO DAILY [facility] Last Admin: 06/26/25 08:18 Dose: 20 mg Documented By: NEFTALI Calcium Carbonate (Calcium Carbonate 750 Mg Tab.Chew) 750 mg PO Q4H PRN PRN Reason: Heartburn Dextrose (Dextrose 50 % 25 Gm/50 Ml Syringe) 25 gm IVPUSH Q15M PRN; Protocol PRN Reason: per Hypoglycemia Standing Ord. Dofetilide (Dofetilide 125 Mcg Capsule) 125 mcg PO BID [facility] Last Admin: 06/26/25 12:39 Dose: 125 mcg Documented By: NEFTALI Furosemide (Furosemide 20 Mg Tablet) 20 mg PO DAILY [facility]; Protocol On Hold: 06/25/25 10:23 Last Admin: 06/25/25 09:17 Dose: 20 mg Documented By: NEFTALI Glucose (Glucose Gel 15 Gm Gel..Gram.) 15 gm PO Q15M PRN; Protocol PRN Reason: per Hypoglycemia Standing Ord. Insulin Human Lispro (Insulin Lispro 100 Unit/Ml 3 Ml Vial) 0 unit SUBCUT QIDACHS [facility]; Protocol Last Admin: 06/26/25 16:56 Dose: Not Given Documented By: NEFTALI Non-Admin Reason: No Insulin Coverage Labetalol HCl (Labetalol Hcl 100 Mg/20 Ml Vial) 5 mg IVPUSH Q6H PRN PRN Reason: SBP>170 Last Admin: 06/22/25 21:15 Dose: 5 mg Documented By: CHAGO Lisinopril (Lisinopril 40 Mg Tablet) 40 mg PO DAILY [facility]; Protocol Last Admin: 06/26/25 08:16 Dose: 40 mg Documented By: NEFTALI Magnesium Hydroxide (Milk Of Magnesia 30 Ml Oral.Susp) 30 ml PO DAILY PRN PRN Reason: Constipation Melatonin (Melatonin 3 Mg Tablet) 6 mg PO BEDTIME PRN PRN Reason: Insomnia Methylprednisolone Sodium Succinate (Methylprednisolone Sod Succ 40 Mg/Ml Vial) 40 mg IVPUSH Q12H [facility] Last Admin: 06/26/25 14:10 Dose: 40 mg Documented By: MICHELLE Metoprolol Succinate (Metoprolol Succinate Er 50 Mg Tab.Er.24h) 50 mg PO DAILY [facility]; Protocol Last Admin: 06/26/25 08:17 Dose: 50 mg Documented By: NEFTALI Sodium Chloride (0.9 % Sodium Chloride Flush 3 Ml Syringe) 3 ml IVFLUSH QSHIFT [facility] Last Admin: 06/26/25 18:22 Dose: 3 ml Documented By: NEFTALI Labs 06/23/25 06:54 06/26/25 09:45 Labs: Laboratory Results - last 24 hr 06/25/25 06/26/25 06/26/25 19:46 07:11 09:45 ESR Anion Gap 13 Estim Creat Clear Calc 30.6 Estimated GFR 43 POC Glucose 133 H 126 H Random Glucose 201 H Calcium 9.2 Magnesium 2.4 06/26/25 06/26/25 06/26/25 11:13 14:09 15:58 ESR 7 Anion Gap Estim Creat Clear Calc Estimated GFR POC Glucose 163 H 118 H Random Glucose Calcium Magnesium Assessment and Plan (1) Acute hypoxic respiratory failure: Status: Acute Plan Pt is an 85-year-old female with a PMH significant for paroxysmal AFib on Eliquis, HTN, and HLD who is being directly admitted to the hospital from Cardiology for Tikosyn loading and monitoring. Pt is admitted to the hospital for acute hypoxic respiratory failure in the setting of CHF exacerbation, as well as for Tikosyn loading and monitoring. Acute hypoxic respiratory failure Previously thought to be in the setting of CHF exacerbation, though pt adequately diuresed and still hypoxic Likely in the setting of amiodarone toxicity CTA of chest Pulmonology consult Start on Solu-Medrol 40 mg b.i.d. Home O2 evaluation Continue supplemental O2 Tikosyn loading Pt here for 3 day hospital stay for cardiac monitoring while being loaded with Tikosyn Converted to sinus yesterday 06/23 for a few hours, then again overnight at around 2:00; still in NSR Will continue on Tikosyn 125 mcg b.i.d. as maintenance QTc has remained baseline; JT Prolongation today 112 Cardiology following, now cleared from their standpoint Monitor on telemetry HTN BP has been as high as 189/91, much better controlled recently Continue lisinopril, metoprolol Labetalol 5 mg IV p.r.n. SBP >170 Paroxysmal AFib Continue metoprolol, Eliquis HLD Continue statin Full Code Attending:?Dr. Perez DVT Prophylaxis: On Eliquis Pt requires continued hospitalization for treatment of acute hypoxic respiratory failure in the setting of amiodarone toxicity requiring IV steroids and supplemental oxygen. Will likely be discharged tomorrow. Quality Stroke Does the patient have a stroke diagnosis?: No VTE Prior VTE?: No VTE Risk Level:: Medical - moderate - high VTE Device Contraindication: Treatment Not Indicated VTE Drug Contraindication: N/A - Med Ordered
[2025-06-26 20:07] LABS: Glucose, Whole Blood 280 mg/dL (60-115)
[2025-06-27] VITALS (10 sets, daily range): BP systolic 110–163; BP diastolic 55–69; PULSE 59–87; RESP 16–20; TEMP 36.2–36.8; O2SAT 85–97; BMI 25.8
[2025-06-27 07:51] LABS: Glucose, Whole Blood 197 mg/dL (60-115)
[2025-06-27] MEDS: Metoprolol Succinate ER 50 MG TAB.ER.24H PO (07:56)
[2025-06-27] MEDS: 0.9 % Sodium Chloride Flush 3 ML SYRINGE IVFLUSH ×3 (08:03→20:49)
[2025-06-27 08:56] LABS: Chlamydia pneumoniae PCR Not Detected (Not Detect.); Coronavirus 229E PCR Not Detected (Not Detect.); Coronavirus HKU1 PCR Not Detected (Not Detect.); Coronavirus NL63 PCR Not Detected (Not Detect.); Coronavirus OC43 PCR Not Detected (Not Detect.); RSV PCR Not Detected (Not Detect.); Rhino/Enterovirus PCR Not Detected (Not Detect.)
[2025-06-27 08:57] LABS: Influenza A H1 PCR Not Detected (Not Detect.); Influenza A H1-2009 PCR Not Detected (Not Detect.); Influenza A H3 PCR Not Detected (Not Detect.); SARS-CoV-2 PCR Not Detected (Not Detect.)
[2025-06-27 11:08] LABS: Glucose, Whole Blood 350 mg/dL (60-115)
--- NOTE | 2025-06-27 11:51 | PC.RT ---
Home oxygen eval completed as ordered. patient requires 2L at rest and 3L with ambulation
--- NOTE | 2025-06-27 15:54 | W.MHC.F2F ---
Service Date Service Date: 06/27/25 Encounter Date of encounter: 06/27/25 Reasons for Services Signs and symptoms assessed: Generalized weakness and gait instability. Prolonged hospital stay. New home oxygen requirement. Reason for chcf: medication management Reason for physical therapy: home safety and mobility Homebound: Leaving the home is medically contraindicated at this time without the asist of a device and/or another person due th the listed conditions above and below. Reason homebound: unsteady gait / fall risk, shortness of breath with minimal effort and poor balance / fall risk Certification: Based on the above findings, I certify that this patient is confined to the home and needs intermittent chcf care, physical therapy and/or speech therapy, or continues to need occupational therapy. The patient is under my care, and I have initiated the establishment of the plan of care. The patient will be followed by a physician who will periodically review the plan of care. Time Spent With Patient Time: Total time managing care of this patient today ____ minutes.
--- NOTE | 2025-06-27 15:55 | P.DS_ITS ---
DS: Providers Provider Date of Service: 06/28/25 Date of admission: 06/22/25 17:38 Date of discharge: 06/28/25 Primary care physician: Murali Child MD Consults: 06/22/25 18:38 Consult to Cardiology Routine Consulting Provider: [facility] Reason for consultation: Here for Tikosyn loading 06/26/25 10:54 Consult to Pulmonology Routine Consulting Provider: [facility] Reason for consultation: Persistent hypoxia DS: Diagnosis Discharge Diagnosis (1) Acute hypoxic respiratory failure: Status: Acute DS: Summary Hospital Course Hospital Course: From admission HPI: Date of Service: 06/22/25 Attending physician on admission: Bernabe Perez Chief Complaint: Persistent AFib Pt is an 85-year-old female with a PMH significant for paroxysmal AFib on Eliquis, HTN, and HLD who is being directly admitted to the hospital from Cardiology for Tikosyn loading and monitoring. Pt follows with Dr. Tucker in Cardiology who previously had rhythm control on amiodarone, which was recently stopped due to concerns for pulmonary amiodarone toxicity. Since then pt has BNP has been steadily rising ad concern is for developing progressive heart failure. After consultation, pt wished to pursue rhythm control with Tikosyn which would require a 3 day hospital stay. Upon presentation to the hospital pt was noted to be hypoxic at 83%, and labs were significant for elevated BNP as well as hyperkalemia of 5.6. EKG with QTc 508. Pt herself had no acute medical complaints, denies significant SOB or difficulty breathing at rest. No lightheadedness or dizziness. Denies shortness or breath or difficulty breathing. No fever, chills, nausea, vomiting. Pt is admitted to the hospital for acute hypoxic respiratory failure in the setting of CHF exacerbation, as well as for Tikosyn loading and monitoring. Hospital course: Pt was admitted to the hospital as a direct admit from Cardiology for cardiac monitoring while being loaded with Tikosyn. Pt required continuous cardiac monitoring and serial EKGs two hours after receiving Tikosyn doses to monitor for QT prolongation. Tikosyn loading was initially held as pt was noted to be hypoxic which was thought to be secondary only to acute CHF exacerbation. Pt received IV diuretics to good effect with improvement to BNP, though hypoxia remained. Pt was started on Tikosyn 125 mcg b.i.d. for 1 day, and then 250 mcg bid x1 day; on day 2 pt was noted to be going in and out of normal sinus rhythm until fully converting during the night to sinus rhythm. On day 3 Tikosyn loading was reduced to 125 mcg based on creatinine function. QTC during this time remained steady: JT QT prolongation index was calculated at 112 milliseconds. Overall pt responded well to Tikosyn dosing and will be discharged on maintenance dose of 125 mcg b.i.d.. Pt will need to follow up with Cardiology in 1-2 weeks for post hospitalization follow up and continued management. 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 Pt was started on IV steroids and will be sent home on a prednisone taper. Pt also was noted to be hyperglycemic once starting steroids; will be sent home on sliding scale insulin for diabetes management while on steroids. Pt did qualified for home oxygen and will be discharged on 2 L at rest and 3 L with exertion. Pt will need pulmonology follow-up for repeat imaging, pneumonitis lab results, and home O2 re-evaluation after steroid course. Pt should continue all of her other home medications. Time Attestation Discharge Coordination Time (in mins): 35 Quality: Safe Use of Opioids Does Pt have an Active Cancer Diagnosis on the Problem List?: No Quality: Stroke Does the patient have a stroke diagnosis?: No Physical Exam Exam: Exam: General: AOx3, no acute distress Resp: CTA bilaterally CVS: S1, S2, RRR GI: +BS, NT, no distention Skin: Warm, dry Neuro: Cranial nerves II-XII grossly intact bilaterally. Motor grossly intact bilaterally Extremities: No edema Psych: Appropriate affect Vital Signs: Vital Signs: Last Vital Signs Temp 98.3 F 06/27/25 15:34 Pulse 59 06/27/25 15:34 Resp 18 06/27/25 15:34 BP 110/55 L 06/27/25 15:34 Pulse Ox 95 06/27/25 15:34 O2 Del Method Nasal Cannula 06/27/25 15:34 O2 Flow Rate 3 06/27/25 15:34 BMI result Body Mass Index 25.8 DS: Data Data Completed and Pending Labs on day of discharge: Laboratory Results - last 24 hr 06/26/25 06/26/25 06/26/25 15:58 16:21 19:59 POC Glucose 118 H 280 H Respiratory Panel [facility] See Note Adenovirus (Rapid PCR) Not Detected B.pert (TEM-PCR) Not Detected B.parapertussis DNA PCR Not Detected C. pneumoniae DNA (PCR) Not Detected Coronavirus OC43 (PCR) Not Detected Coronavirus HKU1 (PCR) Not Detected Coronavirus 229E (PCR) Not Detected Coronavirus NL63 (PCR) Not Detected Human Metapneumovir PCR Not Detected Influenza A (RT-PCR) Not Detected Influenza A (H1) PCR Not Detected Influ A (H1/09) PCR Not Detected Influenza A (H3) PCR Not Detected Influenza B (RT-PCR) Not Detected M. pneumoniae (PCR) Not Detected Parainfluenza 1 (PCR) Not Detected Parainfluenza 2 (PCR) Not Detected Parainfluenza 3 (PCR) Not Detected Parainfluenza 4 (PCR) Not Detected RSV (PCR) Not Detected Entero/Rhino (PCR) Not Detected SARS-CoV-2 RNA (RT-PCR) Not Detected 06/27/25 06/27/25 07:48 11:04 POC Glucose 197 H 350 H* Respiratory Panel [facility] Adenovirus (Rapid PCR) B.pert (TEM-PCR) B.parapertussis DNA PCR C. pneumoniae DNA (PCR) Coronavirus OC43 (PCR) Coronavirus HKU1 (PCR) Coronavirus 229E (PCR) Coronavirus NL63 (PCR) Human Metapneumovir PCR Influenza A (RT-PCR) Influenza A (H1) PCR Influ A (H1/09) PCR Influenza A (H3) PCR Influenza B (RT-PCR) M. pneumoniae (PCR) Parainfluenza 1 (PCR) Parainfluenza 2 (PCR) Parainfluenza 3 (PCR) Parainfluenza 4 (PCR) RSV (PCR) Entero/Rhino (PCR) SARS-CoV-2 RNA (RT-PCR) Discharge Plan Discharge Anticipated Discharge Date/Time: 06/28/25 09:01 Patient Disposition: Home Health Service Discharge Diagnosis: Monitoring for Tikosyn loading Referrals: Yolie SAMUEL [Outside] - 1 Week Murali Kirk MD [Primary Care Provider, Internal Medicine] - 1 Week Pierce Maya MD [Physician, Pulmonology] - 1 Week Referral Note: Amiodarone pneumonitis Arturo Tucker MD [Physician, Cardiology] - 1 Week Referral Note: Tikosyn loading Discharge Medications: New dofetilide [Tikosyn] 125 mcg capsule 125 mcg PO BID Qty: 180 0RF Rx Instructions: Take on capsule twice a day prednisone 10 mg tablet 10 mg PO DAILY Qty: 63 0RF Rx Instructions: Prednisone taper: Take 40mg (4 tabs) once a day for 7 days, then Take 30mg (3 tabs) once a day for 7 days, then Take 20mg (2 tabs) once a day for 7 days, then Take 10mg (1 tab) once a day for 7 days (DME) FreeStyle Lite Strips Strip Qty: 100 0RF Rx Instructions: Test four times a day or as directed. alcohol swabs Pads, Medicated 1 pad TOPICAL QIDACHS Qty: 100 0RF Rx Instructions: Use four times a day or as directed. insulin lispro [Humalog KwikPen Insulin] 100 unit/mL insulin pen 0 sliding scale dose SUBCUT QIDACHS Qty: 15 0RF Rx Instructions: Blood Sugar: <150 - 0 units 151-200 - 2 units 201-250 - 4 units 251-300 - 6 units 301-350 - 8 units >350 - 10 units (DME) pen needle, diabetic 32 gauge x 1/4 needle Qty: 100 0RF Rx Instructions: Use four times a day or as directed. (DME) lancets [FreeStyle Lancets] 28 gauge misc Qty: 100 0RF Rx Instructions: Test four times a day or as directed. Continued (DME) blood-glucose meter [FreeStyle Lite Meter] Kit See Rx Instructions .Route Qty: 1 0RF Rx Instructions: As directed (DME) FreeStyle Lite Strips Strip See Rx Instructions .ROUTE .MEDSUPPLY Qty: 50 1RF Rx Instructions: Testing once a day as needed. metoprolol succinate 50 mg tablet extended release 24 hr 50 mg PO DAILY Qty: 90 1RF Eliquis 5 mg tablet 5 mg PO BID 90 Days Qty: 180 3RF lisinopril 40 mg tablet 40 mg PO DAILY Qty: 90 2RF atorvastatin 20 mg tablet 20 mg PO DAILY Qty: 90 8RF furosemide [Lasix] 20 mg tablet 20 mg PO DAILY 30 Days Qty: 30 3RF Discharge Orders: Discharge Order (Routine); Ordered 06/28/25 Ordered By: Thania Albert Activity on Discharge: As tolerated Stand Alone Forms: Patient Portal Discharge page Print Language: Yoruba Care Plan Goals: See below Health Concerns: Acute hypoxic respiratory failure Tikosyn toxicity [place] Amiodarone toxicity Pulmonary fibrosis Pneumonitis CHF exacerbation Plan of Treatment: You were admitted to the hospital directly from Cardiology for close monitoring while being loaded with Tikosyn to help control your atrial fibrillation. You underwent close cardiac monitoring and serial EKG is during Tikosyn loading, all of which were unremarkable. U tolerated Tikosyn well and converted to normal sinus rhythm which you have maintain for the past 3 days. Hospital course was complicated by acute respiratory failure and new oxygen requirement. You were initially diuresed with IV Lasix for acute decompensated heart failure, though you still remained hypoxic. CT of chest was ordered which showed likely pneumonitis from amiodarone use. You were seen and evaluated by pulmonology and started on IV steroids. You were also seen by respiratory and qualify for home oxygen of 2 L at rest and 3 L with ambulation/exertion. For elevated blood glucose while on steroids you will be prescribed sliding-scale insulin. Pt also recommended home with services. -- take Tikosyn 125 mcg twice a day for rhythm control -- continue metoprolol and Eliquis -- for CHF continue furosemide -- for amiodarone pneumonitis you will be on a prednisone taper: Take 40mg (4 tabs) once a day for 7 days, then 30mg (3 tabs) once a day for 7 days, then 20mg (2 tabs) once a day for 7 days, then 10mg (1 tab) once a day for 7 days. -- you will be prescribed sliding scale insulin for diabetes management while on steroids -- follow up with Dr. Tucker in Cardiology in 1-2 weeks -- follow up with Dr. Maya in pulmonology in 1-2 weeks Assessment: See discharge summary
[2025-06-27 16:09] LABS: Glucose, Whole Blood 203 mg/dL (60-115)
--- NOTE | 2025-06-27 16:34 | MHC.CM.PN ---
Addendum entered by Kate Oconnor 06/28/25 09:36: PER EMR, DC HELD YESTERDAY, PT REQUIRING IV STEROIDS AND SUPPLEMENTAL O2. Original Note: PT CLEARED TO DC HOME TODAY WITH NEW HOME O2 AND [facility] SERVICES [facility] NOTIFIED OF DC VIA [facility]
[2025-06-27 20:31] LABS: Glucose, Whole Blood 182 mg/dL (60-115)
--- NOTE | 2025-06-27 22:20 | HO.PM.IMPN ---
Subjective Subjective Date of Service: 06/27/25 Interval History: Feeling well overall No SOB of difficulty breathing No CP or palpitations Qualified for home O2, 2L at rest and 3L with exertion Review of Systems Review of Systems: Yes all other systems are reviewed and are negative Physical Exam Exam: Exam: General: AOx3, no acute distress Resp: CTA bilaterally CVS: S1, S2, RRR GI: +BS, NT, no distention Skin: Warm, dry Neuro: Cranial nerves II-XII grossly intact bilaterally. Motor grossly intact bilaterally Extremities: No edema Psych: Appropriate affect Vital Signs: Vital Signs: Last Vital Signs Temp 97.7 F 06/27/25 19:48 Pulse 66 06/27/25 19:48 Resp 20 06/27/25 19:48 BP 163/67 H 06/27/25 19:48 Pulse Ox 95 06/27/25 19:48 O2 Del Method Nasal Cannula 06/27/25 19:48 O2 Flow Rate 2 06/27/25 19:48 BMI result Body Mass Index 25.8 Objective Data Active Medications Acetaminophen (Acetaminophen 325 Mg Tablet) 650 mg PO Q6H PRN PRN Reason: Pain, Mild 1-3,fever,headache Apixaban (Apixaban 5 Mg Tablet) 5 mg PO BID [facility] Last Admin: 06/27/25 20:49 Dose: 5 mg Documented By: FLORA Atorvastatin Calcium (Atorvastatin Calcium 20 Mg Tablet) 20 mg PO DAILY [facility] Last Admin: 06/27/25 07:56 Dose: 20 mg Documented By: CAMRYN Calcium Carbonate (Calcium Carbonate 750 Mg Tab.Chew) 750 mg PO Q4H PRN PRN Reason: Heartburn Dextrose (Dextrose 50 % 25 Gm/50 Ml Syringe) 25 gm IVPUSH Q15M PRN; Protocol PRN Reason: per Hypoglycemia Standing Ord. Dofetilide (Dofetilide 125 Mcg Capsule) 125 mcg PO BID [facility] Last Admin: 06/27/25 20:49 Dose: 125 mcg Documented By: FLORA Furosemide (Furosemide 20 Mg Tablet) 20 mg PO DAILY [facility]; Protocol On Hold: 06/25/25 10:23 Last Admin: 06/25/25 09:17 Dose: 20 mg Documented By: NEFTALI Glucose (Glucose Gel 15 Gm Gel..Gram.) 15 gm PO Q15M PRN; Protocol PRN Reason: per Hypoglycemia Standing Ord. Insulin Human Lispro (Insulin Lispro 100 Unit/Ml 3 Ml Vial) 0 unit SUBCUT QIDACHS [facility]; Protocol Last Admin: 06/27/25 20:49 Dose: 2 unit Documented By: FLORA Labetalol HCl (Labetalol Hcl 100 Mg/20 Ml Vial) 5 mg IVPUSH Q6H PRN PRN Reason: SBP>170 Last Admin: 06/22/25 21:15 Dose: 5 mg Documented By: CHAGO Lisinopril (Lisinopril 40 Mg Tablet) 40 mg PO DAILY [facility]; Protocol Last Admin: 06/27/25 07:56 Dose: 40 mg Documented By: CAMRYN Magnesium Hydroxide (Milk Of Magnesia 30 Ml Oral.Susp) 30 ml PO DAILY PRN PRN Reason: Constipation Melatonin (Melatonin 3 Mg Tablet) 6 mg PO BEDTIME PRN PRN Reason: Insomnia Methylprednisolone Sodium Succinate (Methylprednisolone Sod Succ 40 Mg/Ml Vial) 40 mg IVPUSH Q12H [facility] Last Admin: 06/27/25 14:54 Dose: 40 mg Documented By: CAMRYN Metoprolol Succinate (Metoprolol Succinate Er 50 Mg Tab.Er.24h) 50 mg PO DAILY [facility]; Protocol Last Admin: 06/27/25 07:56 Dose: 50 mg Documented By: CAMRYN Sodium Chloride (0.9 % Sodium Chloride Flush 3 Ml Syringe) 3 ml IVFLUSH QSHIFT [facility] Last Admin: 06/27/25 20:49 Dose: 3 ml Documented By: FLORA Labs 06/23/25 06:54 06/26/25 09:45 Labs: Laboratory Results - last 24 hr 06/26/25 06/27/25 06/27/25 16:21 07:48 11:04 POC Glucose 197 H 350 H* Respiratory Panel [facility] See Note Adenovirus (Rapid PCR) Not Detected B.pert (TEM-PCR) Not Detected B.parapertussis DNA PCR Not Detected C. pneumoniae DNA (PCR) Not Detected Coronavirus OC43 (PCR) Not Detected Coronavirus HKU1 (PCR) Not Detected Coronavirus 229E (PCR) Not Detected Coronavirus NL63 (PCR) Not Detected Human Metapneumovir PCR Not Detected Influenza A (RT-PCR) Not Detected Influenza A (H1) PCR Not Detected Influ A (H1/09) PCR Not Detected Influenza A (H3) PCR Not Detected Influenza B (RT-PCR) Not Detected M. pneumoniae (PCR) Not Detected Parainfluenza 1 (PCR) Not Detected Parainfluenza 2 (PCR) Not Detected Parainfluenza 3 (PCR) Not Detected Parainfluenza 4 (PCR) Not Detected RSV (PCR) Not Detected Entero/Rhino (PCR) Not Detected SARS-CoV-2 RNA (RT-PCR) Not Detected 06/27/25 06/27/25 16:04 20:27 POC Glucose 203 H 182 H Respiratory Panel [facility] Adenovirus (Rapid PCR) B.pert (TEM-PCR) B.parapertussis DNA PCR C. pneumoniae DNA (PCR) Coronavirus OC43 (PCR) Coronavirus HKU1 (PCR) Coronavirus 229E (PCR) Coronavirus NL63 (PCR) Human Metapneumovir PCR Influenza A (RT-PCR) Influenza A (H1) PCR Influ A (H1/09) PCR Influenza A (H3) PCR Influenza B (RT-PCR) M. pneumoniae (PCR) Parainfluenza 1 (PCR) Parainfluenza 2 (PCR) Parainfluenza 3 (PCR) Parainfluenza 4 (PCR) RSV (PCR) Entero/Rhino (PCR) SARS-CoV-2 RNA (RT-PCR) Assessment and Plan (1) Visit for monitoring Tikosyn therapy: Status: Acute Plan Pt is an 85-year-old female with a PMH significant for paroxysmal AFib on Eliquis, HTN, and HLD who is being directly admitted to the hospital from Cardiology for Tikosyn loading and monitoring. Pt is admitted to the hospital for acute hypoxic respiratory failure in the setting of CHF exacerbation, as well as for Tikosyn loading and monitoring. Acute hypoxic respiratory failure Previously thought to be in the setting of CHF exacerbation, though pt adequately diuresed and still hypoxic Likely in the setting of amiodarone toxicity CT of chest with Mosaic pattern concerning for amiodarone toxicity Pulmonology consulted Solu-Medrol 40 mg b.i.d. Qualified for home O2 2L at rest, 3L with exertion Continue supplemental O2 Tikosyn loading Pt here for 3 day hospital stay for cardiac monitoring while being loaded with Tikosyn Converted to sinus yesterday 06/23 for a few hours, then again overnight at around 2:00; still in NSR Continue on Tikosyn 125 mcg b.i.d. as maintenance QTc has remained baseline; JT Prolongation 112 Cardiology following, now cleared from their standpoint Monitor on telemetry HTN BP has been as high as 189/91, much better controlled recently Continue lisinopril, metoprolol Labetalol 5 mg IV p.r.n. SBP >170 Paroxysmal AFib Continue metoprolol, Eliquis HLD Continue statin Full Code Attending:?Dr. Perez DVT Prophylaxis: On Eliquis Pt requires continued hospitalization for treatment of acute hypoxic respiratory failure in the setting of amiodarone toxicity requiring IV steroids and supplemental oxygen. Will likely be discharged tomorrow. Quality Stroke Does the patient have a stroke diagnosis?: No VTE Prior VTE?: No VTE Risk Level:: Medical - moderate - high VTE Device Contraindication: Treatment Not Indicated VTE Drug Contraindication: N/A - Med Ordered
[2025-06-28 04:00] VITALS: BP 168/74; PULSE 65; RESP 20; TEMP 36.2; O2SAT 93
[2025-06-28 06:00] VITALS: BMI 25.5
[2025-06-28 07:46] LABS: Glucose, Whole Blood 170 mg/dL (60-115)
[2025-06-28 08:00] VITALS: BP 162/72; PULSE 65; RESP 20; TEMP 36.6; O2SAT 97
[2025-06-28] MEDS: Metoprolol Succinate ER 50 MG TAB.ER.24H PO (08:53)
[2025-06-28] MEDS: 0.9 % Sodium Chloride Flush 3 ML SYRINGE IVFLUSH (09:00)
[2025-06-30 14:14] LABS: Anti Nuclear Antibody Screen NEGATIVE (NEGATIVE)
[2025-07-03 12:44] LABS: Asperg fumigatus Precip Abs NEGATIVE (NEGATIVE); Micropoly faeni Abs NEGATIVE (NEGATIVE); Saccharo pora viridis Abs NEGATIVE (NEGATIVE); Thermo candidus Abs NEGATIVE (NEGATIVE)
== END 2025-06-28 13:53 | disposition home health service (06) | DRG 291 ==
LOC: HO.ED 17:50 → HO.EDOVER 18:04 → HO.IMC 18:28
PROVIDERS: Hospitalist; Internal Medicine; Physician Assistant; Physician Assistant Medical; Admitting Provider Student in an Organized Health Care Education/Training Program; Emergency Provider Emergency Medicine Emergency Medical Services; PCP Internal Medicine; Visit Provider Student in an Organized Health Care Education/Training Program
DX: I11.0 Hypertensive heart disease with heart failure (principal); I50.21 Acute systolic (congestive) heart failure; J96.01 Acute respiratory failure with hypoxia; I48.19 Other persistent atrial fibrillation; I16.0 Hypertensive urgency; E78.5 Hyperlipidemia, unspecified; Z20.822 Contact with and (suspected) exposure to COVID-19; Z79.01 Long term (current) use of anticoagulants; Z79.899 Other long term (current) drug therapy
CPT/HCPCS: 36415; 71045; 71250; 80048; 80053; 82785; 82947; 83735; 83880; 84484; 85025; 85027; 85610; 85652; 86038; 86200; 86331; 86606; 86609; 87633; 93005; 97162; 99284; J1920; J1938; J2919

== ENCOUNTER → 2025-06-22 16:18 | Outpatient (BNV) | payer MEDICARE, SELFPAY | PROVIDERS: Admitting Provider Student in an Organized Health Care Education/Training Program; Visit Provider Internal Medicine Cardiovascular Disease | DX: I48.91 Unspecified atrial fibrillation (principal); I45.10 Unspecified right bundle-branch block | CPT/HCPCS: 93010 ==

== ENCOUNTER → 2025-06-22 17:19 | Outpatient (BNV) | payer MEDICARE, SELFPAY | PROVIDERS: Admitting Provider Student in an Organized Health Care Education/Training Program; Emergency Provider Emergency Medicine Emergency Medical Services; Visit Provider Radiology Diagnostic Radiology | DX: R09.02 Hypoxemia (principal) | CPT/HCPCS: 71045 ==

== ENCOUNTER 2025-06-22 17:38 | Outpatient (BNV) | payer MEDICARE, SELFPAY | END 2025-06-25 12:45 | PROVIDERS: Admitting Provider Student in an Organized Health Care Education/Training Program; Emergency Provider Emergency Medicine Emergency Medical Services; Visit Provider Internal Medicine Cardiovascular Disease | DX: I44.0 Atrioventricular block, first degree (principal); I45.10 Unspecified right bundle-branch block | CPT/HCPCS: 93010 ==

== ENCOUNTER 2025-06-22 17:38 | Outpatient (BNV) | payer MEDICARE, SELFPAY | END 2025-06-27 07:00 | PROVIDERS: Admitting Provider Student in an Organized Health Care Education/Training Program; Emergency Provider Emergency Medicine Emergency Medical Services; PCP Internal Medicine; Visit Provider Radiology Vascular & Interventional Radiology | DX: R09.02 Hypoxemia (principal) | CPT/HCPCS: 71045 ==

== ENCOUNTER 2025-06-22 17:38 | Outpatient (BNV) | payer MEDICARE, SELFPAY | END 2025-06-23 08:00 | PROVIDERS: Admitting Provider Student in an Organized Health Care Education/Training Program; Emergency Provider Emergency Medicine Emergency Medical Services; Visit Provider Internal Medicine Cardiovascular Disease | DX: I48.91 Unspecified atrial fibrillation (principal); I45.10 Unspecified right bundle-branch block | CPT/HCPCS: 93010 ==

== ENCOUNTER 2025-06-22 17:38 | Outpatient (BNV) | payer MEDICARE, SELFPAY | END 2025-06-26 11:27 | PROVIDERS: Admitting Provider Student in an Organized Health Care Education/Training Program; Emergency Provider Emergency Medicine Emergency Medical Services; PCP Internal Medicine; Visit Provider Radiology Diagnostic Radiology | DX: R09.02 Hypoxemia (principal) | CPT/HCPCS: 71250 ==

== ENCOUNTER 2025-06-22 17:38 | Outpatient (BNV) | payer MEDICARE, SELFPAY | END 2025-06-24 10:58 | PROVIDERS: Admitting Provider Student in an Organized Health Care Education/Training Program; Emergency Provider Emergency Medicine Emergency Medical Services; Visit Provider Internal Medicine Cardiovascular Disease | DX: I44.0 Atrioventricular block, first degree (principal); I45.10 Unspecified right bundle-branch block; I48.91 Unspecified atrial fibrillation | CPT/HCPCS: 93010 ==

== ENCOUNTER 2025-06-22 17:38 | Outpatient (BNV) | payer MEDICARE, SELFPAY | END 2025-06-26 09:32 | PROVIDERS: Admitting Provider Student in an Organized Health Care Education/Training Program; Emergency Provider Emergency Medicine Emergency Medical Services; PCP Internal Medicine; Visit Provider Internal Medicine Cardiovascular Disease | DX: I44.0 Atrioventricular block, first degree (principal); I49.3 Ventricular premature depolarization; I45.10 Unspecified right bundle-branch block | CPT/HCPCS: 93010 ==

== ENCOUNTER → 2025-06-22 17:38 | Outpatient (BNV) | payer MEDICARE, SELFPAY | PROVIDERS: Admitting Provider Student in an Organized Health Care Education/Training Program; Emergency Provider Emergency Medicine Emergency Medical Services; PCP Internal Medicine; Visit Provider Hospitalist | DX: J96.01 Acute respiratory failure with hypoxia (principal); I50.9 Heart failure, unspecified; J98.4 Other disorders of lung | CPT/HCPCS: 99222 ==

== ENCOUNTER → 2025-06-22 17:38 | Outpatient (BNV) | payer MEDICARE, SELFPAY | PROVIDERS: Admitting Provider Student in an Organized Health Care Education/Training Program; Emergency Provider Emergency Medicine Emergency Medical Services; Visit Provider Student in an Organized Health Care Education/Training Program | DX: J96.01 Acute respiratory failure with hypoxia (principal); I50.9 Heart failure, unspecified; Z51.81 Encounter for therapeutic drug level monitoring; Z79.899 Other long term (current) drug therapy | CPT/HCPCS: 99223 ==

== ENCOUNTER → 2025-06-22 17:38 | Outpatient (BNV) | payer MEDICARE, SELFPAY | PROVIDERS: Admitting Provider Student in an Organized Health Care Education/Training Program; Emergency Provider Emergency Medicine Emergency Medical Services; Visit Provider Internal Medicine Cardiovascular Disease | DX: I50.9 Heart failure, unspecified (principal); I48.19 Other persistent atrial fibrillation | CPT/HCPCS: 99222; 99233 ==

== ENCOUNTER 2025-07-23 14:05 | Outpatient (AMB) | payer MEDICARE, SELFPAY ==
[2025-07-23 14:08] VITALS: BP 146/66; PULSE 77; O2SAT 98; BMI 24.6
--- NOTE | 2025-07-23 14:08 | A.OFFVIS_ITS ---
Vital Signs 07/23/25 14:08 Height 5 ft 3 in Weight 138 lb 14.259 oz BMI 24.6 BP 146/66 H Blood Pressure Location Lt brachial Position Sitting Pulse 77 Pulse Source Pulse Oximeter Pulse Oximetry (%) 98 Oxygen Delivery Method Nasal Cannula Oxygen Flow Rate 2 Intake Visit Reasons: Amiodarone pneumonitis Accompanied by: Self / Same As Patient Allergies amoxicillin Allergy (Intermediate, Verified 07/23/25 14:13) rash cephalexin Allergy (Intermediate, Verified 07/23/25 14:13) Rash HPI Comments Details: The patient is an 85-year-old female with a PMH significant for paroxysmal AFib on Eliquis, HTN, and HLD who is being directly admitted to the hospital from Cardiology for Tikosyn loading and monitoring. Pt follows with Dr. Tucker in Cardiology who previously had rhythm control on amiodarone, which was recently stopped due to concerns for pulmonary amiodarone toxicity. Since then pt has BNP has been steadily rising ad concern is for developing progressive heart failure. After consultation, pt wished to pursue rhythm control with Tikosyn which would require a 3 day hospital stay. Upon presentation to the hospital pt was noted to be hypoxic at 83%, and labs were significant for elevated BNP as well as hyperkalemia of 5.6. EKG with QTc 508. Pt herself had no acute medical complaints, denies significant SOB or difficulty breathing at rest. No lightheadedness or dizziness. Denies shortness or breath or difficulty breathing. No fever, chills, nausea, vomiting. Pt is admitted to the hospital for acute hypoxic respiratory failure in the setting of CHF exacerbation, as well as for Tikosyn loading and monitoring. After several days in the hospital with diuresis the patient has still continued to have significant hypoxia. Therefore she did undergo a CT scan of the chest that I personally reviewed. She appears to have mosaic pattern consistent with areas of ground-glass opacities. She also has other nodular inflammatory changes. Is felt to be related to the amiodarone. At this point will go ahead and request additional blood work. Does not have significant procedures. Does not have any other systemic inflammatory symptoms. Will be reasonable to start her on Solu-Medrol to decrease the inflammation of the airways to try to help her with her gas exchange and ultimately will have a prednisone taper. 07/23/2025 the patient is here for hospital follow-up visit. Overall the patient is feeling better. She is using her oxygen. She is able to take it off at times for periods of time. She does have a pulse oximeter at home. She continues to take the prednisone although she is down to 10 mg. Her blood sugars have been elevated so therefore she has been doing ice sliding scale insulin. Will continue to wean off the prednisone at this time. I did review her CT scan of the chest back from June 2025 and also compared to the CAT scan from 2023. She does have significant mosaic pattern. 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 She is no longer taking amiodarone which is reassuring. Will try to wean her off completely from the prednisone specially with the diabetes. Hopefully she responds well to the inhaled corticosteroid combination inhaler, Wixela. We did instruct her how to use it correctly. The patient will have a repeat x-ray and return in 2-3 months. If she has any issues prior to this she can always call for an earlier assessment. In the meantime we did walking oximetry the patient did qualify for portable oxygen concentrator with activity at 2 L pulse. We will send a revision oxygen order to [facility] in order for her to get a POC for better portability outside of the home and she will continue to use the oxygen via concentrator in the home and while sleeping. [facility] Medical History (Updated 07/23/25 @ 21:42 by Pierce Maya MD) Pulmonary nodules Chronic respiratory failure with hypoxia Atrial fibrillation (HFpEF) heart failure with preserved ejection fraction Pneumonitis Paroxysmal atrial fibrillation Persistent atrial fibrillation Atrial flutter New onset a-fib Obesity Hypertension Surgical History History of nephrectomy, left Hx of cholecystectomy Family History Mother No problems noted. Father No problems noted. Social History Household Members: None Housing: House Do you presently have visiting nurse or other home services: No Alcohol intake: never Comment: Refuses bed alarm Patient Tobacco Use Status: Never used Tobacco e-Cigarette/Vaping Use: Never Used Second Hand Smoke Exposure: No service: No Current occupational status: retired Cognitive needs: No Hearing needs: Yes Vision needs: No Review of Systems Const Denies chills, Denies fatigue, Denies fever(s), Denies frequent falls, Denies weakness, Denies weight gain and Denies weight loss ENT Denies dizziness Card Denies chest pain, Denies leg edema, Denies lightheadedness, Denies palpitations, Denies dyspnea, Reports dyspnea on exertion, Denies orthopnea and Denies other (loss of consciousness) Resp Reports cough, Denies dyspnea and Reports dyspnea on exertion GI Denies hematochezia and Denies change in stool character Musc Denies abnormal gait, Denies muscle weakness, Denies numbness, Denies radiating pain into limb and Denies tingling Neuro Denies abnormal gait, Denies dizziness, Denies frequent falls, Denies numbness, Denies tingling and Denies weakness Endo Denies fatigue and Denies palpitations Physical Exam Vital Signs: Last Vital Signs Pulse 77 07/23/25 14:08 BP 146/66 H 07/23/25 14:08 Pulse Ox 98 07/23/25 14:08 Oxygen Delivery Method Nasal Cannula 07/23/25 14:08 Oxygen Flow Rate 2 07/23/25 14:08 BMI result Body Mass Index 24.6 Last Vital Signs Temp 97.7 F 06/26/25 11:52 Pulse 65 06/26/25 11:52 Resp 18 06/26/25 11:52 BP 163/72 H 06/26/25 11:52 Pulse Ox 92 06/26/25 11:52 O2 Del Method Room Air 06/26/25 11:52 O2 Flow Rate 2 06/26/25 03:38 BMI result Body Mass Index 25.6 Const General: cooperative, comfortable, no acute distress, well developed, alert, awake and Physically active Nutritional Appearance: average body habitus Orientation/consciousness: patient oriented x3 Limitations: no limitations HEENT Head: Yes normocephalic and Yes atraumatic Neck Neck: Yes trachea midline, Yes supple and Yes no JVD Chest Chest palpation & inspection: normal inspection of the chest Resp Effort & Inspection: normal respiratory effort Auscultation: no crackles Cardio Rate: regular rate Rhythm: regular rhythm Heart sounds: S1 normal heart sound present and S2 normal heart sound present GI Auscultation: normal bowel sounds Skin General skin exam: no rashes or lesions noted Neuro General: patient oriented x3 and no focal motor deficits Extrem General: Yes no clubbing, cyanosis or edema Psych Appearance: grossly normal Results Reviewed Results Reviewed: personally review CT chest 2024 and 2024 with mosiac pattern, pneumonitis, nodular densities Assessment & Plan Assessment & Plan (1) SOB (shortness of breath) on exertion: Code(s): R06.02 - Shortness of breath Category: Medical (2) Pneumonitis: Code(s): J98.4 - Other disorders of lung Category: Medical (3) Chronic respiratory failure with hypoxia: Code(s): J96.11 - Chronic respiratory failure with hypoxia Category: Medical (4) Pulmonary nodules: Code(s): R91.8 - Other nonspecific abnormal finding of lung field Category: Medical Plan continue oxygen: Requested POC 2L/pulse with activity for outside for better portability and 2L/min while in the home Prednisone taper 10mg->5mg then off start Wixela CXR F/U 2-3 months Medications: New fluticasone propion-salmeterol 250-50 mcg/dose (Wixela Inhub) 1 inh inhalation Q12H 60 ea 11RF 30 days prednisone 5 mg orally daily x 10 days, then, every other day x 20 days 20 tabs 11RF 30 days Coding Level of Care Code Est Pt Level 5 (34576) Diagnoses SOB (shortness of breath) on exertion R06.02 Pneumonitis J98.4 Chronic respiratory failure with hypoxia J96.11 Pulmonary nodules R91.8 Time Spent (min) 55
== END 2025-07-23 14:50 | disposition home or self-care (01) ==
LOC: HO.HPS 14:06
PROVIDERS: PCP Internal Medicine; Visit Provider Hospitalist
DX: R06.02 Shortness of breath (principal); J98.4 Other disorders of lung; J96.11 Chronic respiratory failure with hypoxia; R91.8 Other nonspecific abnormal finding of lung field
CPT/HCPCS: 99214

== ENCOUNTER → 2025-07-23 14:05 | Outpatient (BNVA) | payer MEDICARE, SELFPAY | PROVIDERS: PCP Internal Medicine; Visit Provider Hospitalist | DX: J96.11 Chronic respiratory failure with hypoxia (principal); J98.4 Other disorders of lung; R91.8 Other nonspecific abnormal finding of lung field; Z99.81 Dependence on supplemental oxygen | CPT/HCPCS: 99212 ==

== ENCOUNTER 2025-08-14 15:45 | Outpatient (AMB) | payer MEDICARE, SELFPAY ==
[2025-08-14 15:50] VITALS: BP 102/66; PULSE 76; RESP 18; TEMP 36.3; O2SAT 98; BMI 24.9
--- NOTE | 2025-08-14 15:50 | MHC.PC.OV ---
Vital Signs 08/14/25 15:50 Height 5 ft 3 in Weight 140 lb 6 oz BMI 24.9 BP 102/66 Blood Pressure Location Lt brachial Position Sitting Respiration 18 Pulse 76 Temp 97.3 F Pulse Oximetry (%) 98 Oxygen Delivery Method Room Air Intake Visit Reasons: Follow up rescheduled for 08/05 Grade Foreman Required: No Accompanied by: Self / Same As Patient Allergies amoxicillin Allergy (Intermediate, Verified 08/14/25 15:52) rash cephalexin Allergy (Intermediate, Verified 08/14/25 15:52) Rash metformin Adverse Reaction (Intermediate, Verified 08/14/25 16:50) Gastrointestinal Upset Medication List - Last Reconciled 08/14/25 by Murali Child MD alcohol swabs 1 pad topical QIDACHS apixaban (Eliquis) 5 mg PO BID 90 days atorvastatin 20 mg PO DAILY blood sugar diagnostic (FreeStyle Lite Strips) Test four times a day or as directed. blood sugar diagnostic (FreeStyle Lite Strips) Testing once a day as needed. blood-glucose meter (FreeStyle Lite Meter kit) As directed dofetilide (Tikosyn) 125 mcg PO BID fluticasone propion-salmeterol 250-50 mcg/dose (Wixela Inhub) 1 inh inhalation Q12H 30 days furosemide (Lasix) 20 mg PO DAILY 30 days insulin lispro (Humalog KwikPen (U-100) Insulin) Blood Sugar: <150 - 0 units 151-200 - 2 units 201-250 - 4 units 251-300 - 6 units 301-350 - 8 units >350 - 10 units lancets (FreeStyle Lancets) Test four times a day or as directed. lisinopril 40 mg PO DAILY metoprolol succinate ER 50 mg PO DAILY pen needle, diabetic Use four times a day or as directed. prednisone 10 mg PO DAILY prednisone 5 mg orally daily x 10 days, then, every other day x 20 days 30 days Tobacco use date assessed: 08/14/25 Fall risk assessment: No Falls in past year Last assessed Fall Risk: 08/14/25 Dental Screening Dental Screen Date: 08/14/25 Did you have a dental visit in the last 12 months?: Yes Did you have a dental problem in the last 6 months where you did not have access to dental care?: No Was dental information given to patient?: Patient has dentist HPI HPI Comments History of Present Illness Details The patient is an 85-year-old female with PMH of A fib, HTN, HLD, CHRF on 2L Oxygen 2/2 pneumonitis presenting to establish care with a new primary physician as her previous one retired. Her current medications include Eliquis, lisinopril, atorvastatin, metoprolol, and furosemide. The patient has a history of atrial fibrillation, for which she takes Eliquis. She was recently hospitalized in May for initiation of Tikosyn, staying for five days to monitor for side effects. She was previously amiodarone but it was stopped. During her recent hospitalization, a lung problem was identified, diagnosed as pneumonitis. As a result, she was started on prednisone and now requires continuous oxygen at 2 liters. She sees a metal bonding helper for this condition. The patient has a history of diabetes mellitus and checks her blood sugar regularly and uses Insulin as needed, with this morning's reading being 117. She notes that her blood sugar becomes high due to prednisone, requiring her to use insulin as needed, which she anticipates discontinuing after the prednisone course is complete. Her friend reports she is very good about her diet. Her last bone scan for osteoporosis was a long time ago. The patient has no history of smoking and denies alcohol or illicit drug use. [facility] Medical History (Updated 08/15/25 @ 20:14 by Murali Child MD) (HFpEF) heart failure with preserved ejection fraction Atrial fibrillation Pulmonary nodules Chronic respiratory failure with hypoxia Pneumonitis Paroxysmal atrial fibrillation Persistent atrial fibrillation Atrial flutter New onset a-fib Obesity Hypertension Surgical History History of nephrectomy, left Hx of cholecystectomy Family History Mother No problems noted. Father No problems noted. Social History Household Members: None Housing: House Do you presently have visiting nurse or other home services: No Alcohol intake: never Comment: Refuses bed alarm Patient Tobacco Use Status: Never used Tobacco e-Cigarette/Vaping Use: Never Used Second Hand Smoke Exposure: No service: No Current occupational status: retired Cognitive needs: No Hearing needs: Yes Vision needs: No Questionnaire Thrive Questionnaire Date Thrive assessed: 08/12/25 I am a: Parent/Caregiver What is your living situation today?: I have a steady place to live Within the past 12 months, did the food you bought not last and you didn't have the money to get more?: Never true Within the past 12 months, did you worry whether your food would run out before you got money to buy more?: Never true Do you have trouble paying for medicines?: No Do you have trouble getting transportation to medical appointments?: No Do you have trouble paying your heating and electricity bill?: No Do you have trouble taking care of your child, family member or friend?: No Do you have trouble with day-to-day activities such as bathing, preparing meals, shopping, managing finances, etc.?: No Are you currently unemployed and looking for a job?: I choose not to answer this question Are you interested in more education?: No Please select the resources that you would like help with: None Currently or been in a relationship where the following occur: No concerns reported THRIVE Score: 0 AUDIT C Alcohol Use Questionnaire (AUDIT-C) 1. How often do you have a drink containing alcohol?: Never 3. How often do you have six or more drinks on one occasion?: Never Total Score: 0 DAKOTA-7 AMB Questionnaire DAKOTA-7 Date DAKOTA - 7 assessed: 01/03/23 Source: Developed by Drs. Daniel Dickerson, Catrachita Broussard, Bigg Sotelo and colleagues, with an educational forrest from [employer]. Review of Systems Const Details: As per HPI. Physical exam (Primary Care) Vital Signs: Last Vital Signs Temp 97.3 F 08/14/25 15:50 Pulse 76 08/14/25 15:50 Resp 18 08/14/25 15:50 BP 102/66 08/14/25 15:50 Pulse Ox 98 08/14/25 15:50 Oxygen Delivery Method Room Air 08/14/25 15:50 BMI result Body Mass Index 24.9 Tobacco/Smoking Status: Tobacco use Status Tobacco use date assessed 08/14/25 08/14/25 16:04 Patient Tobacco Use Status Never used Tobacco 08/14/25 16:04 e-Cigarette/Vaping Use Never Used 08/14/25 16:04 Thrive Assessment: Date of Thrive Assessment Date Thrive assessed 08/12/25 08/14/25 16:04 Currently or been in a relationship where the following occur: No concerns reported Const Other: Pertinent findings are in BOLD GENERAL APPEARANCE NAD, activity normal for age, well developed/ well nourished, no cyanosis, pallor, or diaphoresis. EYES lids/conjunctiva normal. EARS/NOSE/THROAT Mucous membranes moist, nares normal, lips/teeth normal uvula midline without oral pharyngeal erythema, exudate or swelling TMs normal bilaterally. No lymphangitis/lymphedema. HEAD/NECK normocephalic atraumatic, no facial trauma, neck is supple. RESPIRATORY respiratory effort normal, speaks in full sentences, no tripod position, no accessory muscle use. Lungs clear to auscultation without rhonchi, wheezes, rales CARDIAC Regular rate and rhythm, no edema. ABDOMINAL Soft, ND/NT. No evidence of fluid wave. No pulsatile masses on exam, rebound tenderness, Quinn sign or pain over Mcburney's point. MUSCLES/EXTREMITIES No abnormal range of motion, no swelling. SKIN Warm, pink and dry. No rashes, dermatoses, petechiae or lesions. NEUROLOGICAL Speech is clear and appropriate. Normal level of consciousness. Gait and coordination are normal. 5/5 strength in all extremities. PSYCH Normal mood and affect. Judgement/competence is appropriate Coding Level of Care Code Est Pt Level 4 (56638) Est Pt Prev Care >65y(59638) Diagnoses Hyperlipidemia, unspecified hyperlipidemia type E78.5 Hyperlipidemia type: unspecified Primary hypertension I10 Hypertension type: primary hypertension Type 2 diabetes mellitus with hyperglycemia, with long-term current use of insulin E11.65; Z79.4 Diabetes mellitus type: type 2 Diabetes mellitus ferry terminal agent insulin use: with ferry terminal agent use Postmenopausal Z78.0 Healthcare maintenance Z00.00 Pneumonitis J98.4 Paroxysmal atrial fibrillation I48.0 Atrial fibrillation type: paroxysmal Chronic heart failure with preserved ejection fraction I50.32 Heart failure chronicity: chronic Time Spent (min) 40 Assessment & Plan Assessment & Plan (1) Hyperlipidemia: Code(s): E78.5 - Hyperlipidemia, unspecified Category: Medical Qualifiers: Hyperlipidemia type: unspecified Qualified Code(s): E78.5 - Hyperlipidemia, unspecified Plan: Continue Atorvastatin daily. We will recheck lipid panel with next labs. (2) Hypertension: Code(s): I10 - Essential (primary) hypertension Category: Medical Qualifiers: Hypertension type: primary hypertension Qualified Code(s): I10 - Essential (primary) hypertension Plan: Continue Lisinopril. Advised the patient to check her blood pressure at home when she is relaxing at night. (3) Diabetes mellitus with hyperglycemia: Code(s): E11.65 - Type 2 diabetes mellitus with hyperglycemia Category: Medical Qualifiers: Diabetes mellitus type: type 2 Diabetes mellitus ferry terminal agent insulin use: with ferry terminal agent use Qualified Code(s): E11.65 - Type 2 diabetes mellitus with hyperglycemia; Z79.4 - USP (current) use of insulin Plan: Patient was previously prescribed indulin as needed. Her prior random glucose measurements were elevated 100-350. She was prescribed metformin in the past but the patient did not tolerate it. Clinic A1C 9.2. I explained to the paitent that she morse Diabetes and insulin PRN might not be sufficient. I initially prescribed the patient Metformin but her daughter called mentioning that the patient took Metformin in the past and she did not tolerate it. The patient's chart was updated with MEtformin intolerance. Sitgliptin 50 daily started. Podiatry referral placed. Advised the patient to follow-up with her ophthalmosologist for yearly eye exam. Follow-up in 6 weeks to re-assess for the patient's DM regimen. We will consider starting long acting Insulin at that time. (4) Postmenopausal: Code(s): Z78.0 - Asymptomatic menopausal state Category: Medical Plan: Dexa scan. (5) Healthcare maintenance: Code(s): Z00.00 - Encounter for general adult medical examination without abnormal findings Category: Medical Plan: CBC, CMP, Lipid panel, A1C, TSH w T4, vit D. Ordered today. Shingles 2 doses when >50 yo. We will discuss next visit as today's visit was mainly focused on DM. COVID: two doses. We will discuss next visit as today's visit was mainly focused on DM. Tdap: We will discuss next visit as today's visit was mainly focused on DM. Pneumococcal: >50 yo. 18-49 with CKD, lung disease, weakened immune system, Heart disease, DM, cochlear implant. We will discuss next visit as today's visit was mainly focused on DM. Flu vaccine: We will discuss next visit as today's visit was mainly focused on DM. Colonoscopy: 45-75. Aged out. AAA: 65 -75. Not indicated as never smoked. CT lun - 80. Not indicated as never smoked. HPV: Aged out. HIV: NI. HBV: NI. HCV: NI. Dexa: Ordered. Mammogram: Aged out. (6) Pneumonitis: Comment: on 2L Oxygen Code(s): J98.4 - Other disorders of lung Category: Medical Plan: Patient is currently on Steroids. Continue Wixela. She is using insulin as needed for elevated blood sugar. She follows with pneumonia with follow-up scheduled 10/02/2025. (7) Atrial fibrillation: Comment: s/p Tikosyn load Code(s): I48.91 - Unspecified atrial fibrillation Category: Medical Qualifiers: Atrial fibrillation type: paroxysmal Qualified Code(s): I48.0 - Paroxysmal atrial fibrillation Plan: Regular rate and rythm in clinic on PE. Was previously on AMiodarone but it was discontinued due to intolerance. Continue Metoprolol. Continue Eiquiss. S/p Tikosyn load in Jun 2025. Follows with Dr. Tucker. Next appointment in 09/08/2025. (8) (HFpEF) heart failure with preserved ejection fraction: Comment: Grade 3 diastolic dysfunction Code(s): I50.30 - Unspecified diastolic (congestive) heart failure Category: Medical Qualifiers: Heart failure chronicity: chronic Qualified Code(s): I50.32 - Chronic diastolic (congestive) heart failure Plan: echo 06/2024 with normal EF 65-70% with Grade 3 diastolic dysfunction. Continue Lasix metoprolol and lisinopril. We will continue monitoring the patient's fluid status and adjust regimen/ W-U accordingly. Plan I have reviewed the patient's medications and complex medical history. I discussed the importance of her scheduled follow-ups with her director electrical engineering and metal bonding helper, which are already in place. Given that it has been a long time since her last bone scan, I explained the need for a DEXA scan to screen for osteoporosis, and I have ordered one. I will see her back in my office in six months and will order lab work for her to complete before that visit. Sitagliptin 5 mg was started for DM. Advised the patient to continue Insulin as needed especially while on Prdnisone. Orders: Orders AMB Hemoglobin A1c 08/14/25 E11.65 - Type 2 diabetes mellitus with hyperglycemia XR DEXA axial skeleton 08/14/25 Z78.0 - Asymptomatic menopausal state Complete Blood Count Auto Diff 6 Months Z00.00 - Encounter for general adult medical examination without abnormal findings Hemoglobin A1c 6 Months Z00.00 - Encounter for general adult medical examination without abnormal findings Vitamin D 25-OH Total 6 Months Z00.00 - Encounter for general adult medical examination without abnormal findings Lipid Panel Today E78.5 - Hyperlipidemia, unspecified Comprehensive Met. Panel 6 Months Z00.00 - Encounter for general adult medical examination without abnormal findings Vitamin B12 and Folate 6 Months D64.9 - Anemia, unspecified, Z00.00 - Encounter for general adult medical examination without abnormal findings TSH reflex Free T4 6 Months Z00.00 - Encounter for general adult medical examination without abnormal findings UA w Microscopic 4 Weeks E11.65 - Type 2 diabetes mellitus with hyperglycemia Referrals Podiatry Referral E11.65 - Type 2 diabetes mellitus with hyperglycemia Medications: New sitagliptin 50 mg PO DAILY 90 tabs 3RF
--- OUTSIDE RECORDS SUMMARY | 2025-08-14 15:53 | XMS_ITS | Data Portability ---
Author Organization [place] [facility] Address [address] [place] [id number] Care Team Providers Care Braze Operator Name Role Phone BISI VALENZUELA Primary Care Provider [phone] JOSH CHAWLA OTHER Assessment Encounter Date Assessment Date Assessment [...] New to provider and DH. Spoke with automotive product engineer office at 1300 regarding patient. Pt with GFR of 56 on 04/09/23 Vital Signs: 96.9 F ear (36.06 C) 65 62 158 / 76 [id number] / 68 Abnormal repeat 16 94 % [...] after care of this patient according to [facility]'s infection prevention protocols. [email or web address] Not available 04/24/2023 13:19:05 Plan of Treatment Reminders Order Date Submit Date Provider Last Modified By Organization Details Last Modified Time Details Appointments None recorded. Lab urinalysis , dipstick 2022 023 [email or web address] [facility] Home, [address], [place], [address], 13:29:00 culture, urine 2022 023 [facility] (Centralized Electronic Ordering - All Locations), Patient Can Go To The Location Of Their Choice, [id number] 09:21:13 Referral None recorded. Procedures None recorded. Surgeries None recorded. Imaging None recorded. Medication Orders None recorded. Patient TargetsNo targets recorded. Patient Instructions Encounter Date Encounter Id Patient Instructions Last Modified By Organization Details Last Modified Time 04/24/2023 [id number] BASIC INFORMATIO N Urinary tract infections(UTI) can involve any portion of the urinary tract. The most common presentation is a bladder infection/cystitis, which usually presents with urinary frequency, burning with urination, urgency, foul smelling cloudy urine and occasionally blood. Kidney infections are less frequent, but more serious, and present with fever, flank pain, malaise and sometimes shaking chills. UTI s are common in women because of the female anatomy, and much less common in males. INSTRUCTIONS Drink plenty of fluid, water is best. Drinking fluids will help to flush the bacteria from your body. Urinate every 2-3 hours Wear cotton underwear and avoid Nylon, Spandex and Lycra which tend to trap moisture and thong underwear which may facilitate UTI s . Avoid tub baths Avoid using Super Tampons [...] in your condition between 8am-10pm, [phone] to help navigate your care. [email or web address] Not available 04/24/2023 12:27:00 Reason for Referral [...] Choice, 04/27/2023 08:19:29 04/24/2004/27/2023 URINE CULTU RE culture [...] Not Available [facility] [address] [place], [address], 04/24/2023 12:56:37 04/24/20 23 04/24/2023 urina lysis , dipst ick Color bloody Not Available [facility] [address] [place], [address], 04/24/2023 12:56:37 04/24/20 23 04/24/2023 urina lysis , dipst ick Glucose (ref: neg) Neg Not Available [facility] [address] [place], [address], 04/24/2023 12:56:37 04/24/20 23 04/24/2023 urina lysis , dipst ick Bilirubin (ref: neg) Neg Not Available [facility] - [facility] [address] [place], [address], 04/24/2023 12:56:37 04/24/20 23 04/24/2023 urina lysis , dipst ick Ketones (ref: neg) Neg Not Available [place] [address] [place], [address], 04/24/2023 12:56:37 04/24/20 23 04/24/2023 urina lysis , dipst ick Specific Morgan (ref: 1.005 - 1.030) 1.010 Not Available [place] [address] [place], [address], 04/24/2023 12:56:37 04/24/20 23 04/24/2023 urina lysis , dipst ick Blood (ref: neg) +++ Not Available [place] [address] [place], [address], 04/24/2023 12:56:37 04/24/20 23 04/24/2023 urina lysis , dipst ick pH (ref: 5.0-7.0) 5.0 Not Available [place] [address] [place], [address], 04/24/2023 12:56:37 04/24/20 23 04/24/2023 urina lysis , dipst ick Protein (ref: neg) Neg Not Available [place] [address] [place], [address], 04/24/2023 12:56:37 04/24/20 23 04/24/2023 urina lysis , dipst ick Urobilinogen (ref: 0.2-1) 0.2 Not Available [place] [address] [place], [address], 04/24/2023 12:56:37 04/24/20 23 04/24/2023 urina lysis , dipst ick Nitrites (ref: neg) positi ve Not Available [facility] [address] [place], [address], 04/24/2023 12:56:37 04/24/20 23 04/24/2023 urina lysis , dipst ick Leukocytes (ref: neg) ++ Not Available [facility] [address] [place], [address], 04/24/2023 12:56:37 04/24/20 23 04/24/2023 urina lysis , dipst ick Location [facility], [address] [place] [address], [id number] Not Available [facility] [address] [place], [address], 04/24/2023 12:56:37 Result Notes None recorded. Procedures Surgical History Date Name Laterality Status Provider Name and Address Organization Details Recorded Time partial nephrectomy completed Caprice Ramos NP [address] [place], [address], [place] [facility] 04/24/2023 12:22:57 Cholecystectomy completed Belén Ramos NP [address] [place], [address], [place] [facility] 04/24/2023 12:23:11 Imaging Results None recorded. Procedure Notes None recorded. Medical Equipment None Reported. Allergies Allergen ID Allergen Name Allergen Category Reaction Reaction Severity Criticality Documentation Date Start Date Code Code System Note Provider Name and Address Organization Details Recorded Time 599180 Keflex medicatio n rash Not available low 04/24/2023 97425 7 RxNorm Belén Ramos NP [address] [place], [address], [place] [facility] 12:26:28 Medications Name Sig Start Date Stop [...] blood by Pulse oximetry Respiratory rate Systolic And Diastolic Systolic And Diastolic Provider Name and Address Organization Details Last Updated DateTime 3 65 /min 16 /min 96.9 [degF] 94 % 94 % 62 /min 93 % 93 % 16 /min 158/76 mm[Hg] 146/68 mm[Hg] Not Available [facility] 3 12:57:21 Social History Question Answer Notes LastModified by Organizat ion Details LastModified Time Tobacco Smoking Status Never Smoker Belén Ramos, DOE [address] [place], [address], [place] [facility] 04/24/2023 12:23:38 Do You Have An Advance Directive? Yes [email or web address] Information not available 04/24/2023 What Is Your Code Status? Full Code [email or web address] Information not available 04/24/2023 Within The Past 12 Months, Has It Happened That The Food You Bought Just Didn't Last And You Didn't Have Money To Get More. Never True [email or web address] Information not available 04/24/2023 Within The Past 12 Months, Have You Worried That Your Food Would Run Out Before You Got Money To Buy More. Never True [email or web address] Information not available 04/24/2023 Fall Risk: Do You Feel Unsteady When Standing Or Walking? Yes [email or web address] Information not available 04/24/2023 Excessive Alcohol Or Drug Use No [email or web address] Information not available 04/24/2023 Does This Patient Have A PCP? Yes [email or web address] Information not available 04/24/2023 Has The Patient Seen Their PCP In The Past 6 Months? Yes [email or web address] Information not available 04/24/2023 Is This Patient In Hospice? No [email or web address] Information not available 04/24/2023 ADL: Do You Need Help With Daily Activities Such As Bathing, Preparing Meals, Dressing, Or Cleaning? No [email or web address] Information not available 04/24/2023 Social Support: Do You Feel Safe? Yes [email or web address] Information not available 04/24/2023 We Know From Many Of Our Patients That Covering All Of Their Costs Can Be Difficult At Times. This Can Cause Stress And Impact Health. In The Past Year, Have You Been Unable To Get Any Of The Following When It Was Really Needed? No [email or web address] Information not available 04/24/2023 Has Tobacco Cessation Counseling Been Provided? No [email or web address] Information not available 04/24/2023 Sex: Unknown Functional Status Question Answer Note LastModified by Organizat ion Details LastModified Time Do you use any illicit or recreational drugs? No [email or web address] Information not available 04/24/2023 Do you or have you ever used any other forms of tobacco or nicotine? No [email or web address] Information not available 04/24/2023 What is your level of alcohol consumption? None Information not available 04/24/2023 Mental Status None recorded. Family History Relationship Description Onset Age of this Age Resolved Age Notes LastModified by Organization Details LastModified Time Father No current problems or disability [email or web address] Not available 04/24 12:23:28 Mother No current problems or disability Not available 04/24 12:23:29 Medical History Condition Response A-fib Y Kidney Disease Hypertension Y Gynecological HistoryNo gynecological history recorded. Obstetrics History GPAL:G 0 P 0 0 0 0 Past Encounters Encounter ID Performer Location Encounter Start Date Encounter Closed Date Diagnosis/Indication Diagnosis SNOMED-CT Code Diagnosis ICD10 Code Diagnosis IMO Codes Diagnosis Note [id number] Belén Ramos NP [facility] [address] [facility] [place] [address] 04/24/2023 12:03:49 05/22/2023 17:03:51 Acute cystitis 52994013 N30.01 Status of condition: Acute.Test ing/Result s: [...] to patient. All questions answered. Essential hypertension 92229136 I10 Status of condition: Chronic. Testing/Re sults: Discussion : Slightly elevated on second reading without aneurysm history. Continue to take current meds and f/u with cardiologi st. No c/o GARVEY, SOB, weakness. Plan, Medication Management & Follow-up recommenda tions: Chronic at rial fibrillation 268277955 I48.20 Status of condition: Chronic. Testing/Re sults: Discussion : Pt currently not in afib, is NSR with auscultati on. Discussed patients choice to stop eliquis with RN at cardio office, RN is going to speak with cardio to determine next course of action/ plan of care. Relayed message to patient and advised pt to roller picker phone when cardiologi st calls or listen to messages. Plan, Medication Management & Follow-up recommenda tions: [id number] Belén Ramos NP [facility] [address] [place] [place] [address] 04/24/2023 12:19:40 04/25/2023 14:18:37 Health Concerns Section Related Observation LastModified by Organization Detai ls LastModified Time None Recorded Concern Status LastModified by Organization Details LastModified Time None Recorded Advance Directives Directive Y: Payers Insurance Date Sequence Insurance Name Policy Number Policy Guadalupe Covered Member ID Guadalupe Member ID Guarantor Name 04/25/2023 1 [employer]ZAK (PPO) [id number] Rosie Guerrero [id number] Andra Burns 04/23/2023 1 *SELF PAY* Rosie Guerrero [id number] Andra Burns 04/25/2023 1 *SELF PAY* [id number] Rosie Guerrero NEED MCR ID PRIMARY Andra Burns Notes Date Note Type Note Provider Name and Address Organization Details Recorded Time 04/24/2023 text/html General HPI Template - DHReported by Patient Pt states hematuria started 03/23/23. Pt states hematuria is intermittent [...] 53 Belén Ramos NP [address], [place], [address], [place] [facility] 04/24/2023 13:30:02 04/24/2023 text/html duplicate chart Belén Ramos NP [address] [place], [address], [place] [facility] 04/24/2023 15:13:38 OBGyn Episode No OBEpisode recorded.
== END 2025-08-14 16:48 | disposition home or self-care (01) ==
LOC: HO.HMCH 15:45
PROVIDERS: PCP Internal Medicine; Visit Provider Internal Medicine
DX: E11.65 Type 2 diabetes mellitus with hyperglycemia (principal); I48.0 Paroxysmal atrial fibrillation; Z79.4 Long term (current) use of insulin; I50.32 Chronic diastolic (congestive) heart failure; E78.5 Hyperlipidemia, unspecified; I10 Essential (primary) hypertension; Z78.0 Asymptomatic menopausal state; J98.4 Other disorders of lung

== ENCOUNTER → 2025-08-14 15:45 | Outpatient (BNVA) | payer MEDICARE, SELFPAY | PROVIDERS: PCP Internal Medicine; Visit Provider Internal Medicine | DX: Z00.00 Encounter for general adult medical examination without abnormal findings (principal); Z76.89 Persons encountering health services in other specified circumstances; E78.5 Hyperlipidemia, unspecified; I11.0 Hypertensive heart disease with heart failure; I50.32 Chronic diastolic (congestive) heart failure; I48.0 Paroxysmal atrial fibrillation; J98.4 Other disorders of lung; E11.65 Type 2 diabetes mellitus with hyperglycemia; Z79.4 Long term (current) use of insulin; Z79.01 Long term (current) use of anticoagulants | CPT/HCPCS: 83036; 99212 ==

== ENCOUNTER 2025-09-03 12:50 | Outpatient (AMB) | payer MEDICARE, SELFPAY ==
[2025-09-03 12:52] VITALS: BP 118/66; RESP 79; BMI 23.8
--- NOTE | 2025-09-03 12:52 | A.OFFVIS_ITS ---
Vital Signs 09/03/25 12:52 Height 5 ft 3 in Weight 134 lb 7.712 oz BMI 23.8 BP 118/66 Blood Pressure Location Lt brachial Position Sitting Respiration 79 H Intake Visit Reasons: c dc fu Intake Note: Follow-up [facility] dc with ekg feeling ok [employer]iztalk Consultant Required: No Accompanied by: Nephew or Niece Allergies amoxicillin Allergy (Intermediate, Verified 08/14/25 15:52) rash cephalexin Allergy (Intermediate, Verified 08/14/25 15:52) Rash amiodarone Adverse Reaction (Severe, Verified 09/03/25 13:18) Pulmonary toxicity metformin Adverse Reaction (Intermediate, Verified 08/14/25 16:50) Gastrointestinal Upset Medication List - Last Reconciled 09/03/25 by Arturo Tucker MD alcohol swabs 1 pad topical QIDACHS apixaban (Eliquis) 5 mg PO BID 90 days atorvastatin 20 mg PO DAILY blood sugar diagnostic (FreeStyle Lite Strips) Test four times a day or as directed. blood sugar diagnostic (FreeStyle Lite Strips) Testing once a day as needed. blood-glucose meter (FreeStyle Lite Meter kit) As directed dofetilide (Tikosyn) 125 mcg PO BID fluticasone propion-salmeterol 250-50 mcg/dose (Wixela Inhub) 1 inh inhalation Q12H 30 days furosemide (Lasix) 20 mg PO DAILY 30 days insulin lispro (Humalog KwikPen (U-100) Insulin) Blood Sugar: <150 - 0 units 151-200 - 2 units 201-250 - 4 units 251-300 - 6 units 301-350 - 8 units >350 - 10 units lancets (FreeStyle Lancets) Test four times a day or as directed. lisinopril 40 mg PO DAILY metoprolol succinate ER 50 mg PO DAILY pen needle, diabetic Use four times a day or as directed. 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 Patient is off amiodarone therapy and currently on Tikosyn therapy. She has been maintaining rhythm. She has not had any heart failure symptoms. She is currently off prednisone therapy. Daughter noticed that after being off prednisone she is getting hypoxemic with minimal exertion which she was not while she was on prednisone therapy. She has no orthopnea, PND. No prolonged palpitation irregular heartbeat. No bleeding issues or neurologic events. No exertional chest pain. No lightheadedness, syncope [facility] Medical History (Updated 09/03/25 @ 13:17 by Arturo Tucker MD) Paroxysmal atrial fibrillation (HFpEF) heart failure with preserved ejection fraction Atrial fibrillation Pulmonary nodules Chronic respiratory failure with hypoxia Pneumonitis Persistent atrial fibrillation Atrial flutter New onset a-fib Obesity Hypertension Surgical History History of nephrectomy, left Hx of cholecystectomy Family History Mother No problems noted. Father No problems noted. Social History Household Members: None Housing: House Do you presently have visiting nurse or other home services: No Alcohol intake: never Comment: Refuses bed alarm Patient Tobacco Use Status: Never used Tobacco e-Cigarette/Vaping Use: Never Used Second Hand Smoke Exposure: No service: No Current occupational status: retired Cognitive needs: No Hearing needs: Yes Vision needs: No Review of Systems Const Denies chills, Denies fatigue, Denies fever(s), Denies frequent falls, Denies weakness, Denies weight gain and Denies weight loss ENT Denies dizziness Card Denies chest pain, Denies leg edema, Denies lightheadedness, Denies palpitations, Denies dyspnea, Reports dyspnea on exertion, Reports orthopnea and Reports other (Hypoxia with exertion without using oxygen) Resp Denies cough, Denies dyspnea and Reports dyspnea on exertion GI Denies hematochezia and Denies change in stool character Musc Denies abnormal gait, Denies muscle weakness, Denies numbness, Denies radiating pain into limb and Denies tingling Neuro Denies abnormal gait, Denies dizziness, Denies frequent falls, Denies numbness, Denies tingling and Denies weakness Endo Denies fatigue and Denies palpitations Physical Exam Vital Signs: Last Vital Signs Resp 79 H 09/03/25 12:52 BP 118/66 09/03/25 12:52 BMI result Body Mass Index 23.8 Last Vital Signs Temp 97.7 F 06/26/25 11:52 Pulse 65 06/26/25 11:52 Resp 18 06/26/25 11:52 BP 163/72 H 06/26/25 11:52 Pulse Ox 92 06/26/25 11:52 O2 Del Method Room Air 06/26/25 11:52 O2 Flow Rate 2 06/26/25 03:38 BMI result Body Mass Index 25.6 Const General: cooperative, comfortable, no acute distress, well developed, alert, awake and Physically active Nutritional Appearance: average body habitus Orientation/consciousness: patient oriented x3 Limitations: no limitations HEENT Head: Yes normocephalic and Yes atraumatic Neck Neck: Yes trachea midline, Yes supple and Yes no JVD Chest Chest palpation & inspection: normal inspection of the chest Resp Effort & Inspection: normal respiratory effort Auscultation: no crackles Cardio Rate: regular rate Rhythm: regular rhythm Heart sounds: S1 normal heart sound present and S2 normal heart sound present GI Auscultation: normal bowel sounds Skin General skin exam: no rashes or lesions noted Neuro General: patient oriented x3 and no focal motor deficits Extrem General: Yes no clubbing, cyanosis or edema Psych Appearance: grossly normal Office Procedures EKG Details: EKG shows normal sinus rhythm with right bundle-branch block with left axis deviation [id number], Complete Assessment & Plan Assessment & Plan (1) Chronic respiratory failure with hypoxia: Code(s): J96.11 - Chronic respiratory failure with hypoxia Category: Medical Plan: Chronic respiratory failure with hypoxemia related to lung parenchymal disease 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 Currently off amiodarone therapy. She is doing well on prednisone therapy but has more hypoxemia as noted by the daughter off prednisone therapy. Question role for prolonged therapy. Question role for repeat imaging. Pulmonary to follow up. For now given that she is doing well with oxygen therapy I have advised her to continue the same. Avoid amiodarone for ever. (2) (HFpEF) heart failure with preserved ejection fraction: Comment: Grade 3 diastolic dysfunction Code(s): I50.30 - Unspecified diastolic (congestive) heart failure Category: Medical Qualifiers: Heart failure chronicity: chronic Qualified Code(s): I50.32 - Chronic diastolic (congestive) heart failure Plan: Heart failure preserved ejection fraction, clinically euvolemic well compensated with persistent rhythm control. Will continue Tikosyn therapy. Continue low- dose diuretic therapy. Continue aggressive blood pressure control. Heart failure management was discussed. Continue manage per minute condition as above. (3) Paroxysmal atrial fibrillation: Code(s): I48.0 - Paroxysmal atrial fibrillation Category: Medical Plan: Paroxysmal atrial fibrillation, currently on Tikosyn therapy which she is tolerating. Quarterly renal function test should be pursued. Continue full oral anticoagulation on Eliquis. 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 Discussed with patient patient's daughter. Will follow up in the clinic in 4 months' time, sooner PRN. Thank you for allowing me to partake in her care Medications: Discontinued prednisone Prednisone taper: Take 40mg (4 tabs) once a day for 7 days, then Take 30mg (3 tabs) once a day for 7 days, then Take 20mg (2 tabs) once a day for 7 days, then Take 10mg (1 tab) once a day for 7 days Discontinued Reason: Patient no longer taking 10 mg PO DAILY 63 tabs 0RF prednisone Discontinued Reason: Patient no longer taking 5 mg orally daily x 10 days, then, every other day x 20 days 30 days 20 tabs 11RF Coding Level of Care Code Est Pt Level 4 (30673) Complex visit Add On G2211 Diagnoses Chronic respiratory failure with hypoxia J96.11 Chronic heart failure with preserved ejection fraction I50.32 Heart failure chronicity: chronic Paroxysmal atrial fibrillation I48.0 CPT Codes EKG - CPT: 22273-[id number], Complete ([id number])
--- OUTSIDE RECORDS SUMMARY | 2025-09-03 18:31 | XMS_ITS | Data Portability ---
Author Organization [place] [facility], [facility] Address [address] [place] [phone] Care Team Providers Care Chief Dispatcher Service Name Role Phone BISI VALENZUELA Primary Care Provider JOSH CHAWLA OTHER Assessment Encounter Date Assessment [...] New to provider and DH. Spoke with electron beam photo mask maker office at 1300 regarding patient. Pt with GFR of 56 on 04/09/23 Vital Signs: 96.9 F ear (36.06 C) 65 62 158 / 76 [id number] / 68 Abnormal repeat 16 94 % [...] after care of this patient according to [facility]'s infection prevention protocols. [email or web address] Not available 04/24/2023 13:19:05 Plan of Treatment Reminders Order Date Submit Date Provider Last Modified By Organization Details Last Modified Time Details Appointments None recorded. Lab urinalysis , dipstick 2022 023 [email or web address] Spr - Home, [address], [place], [address], 13:29:00 culture, urine 2022 023 TRISTON [facility] (Centralized Electronic Ordering - All Locations), Patient Can Go To The Location Of Their Choice, [address] 09:21:13 Referral None recorded. Procedures None recorded. Surgeries None recorded. Imaging None recorded. Medication Orders None recorded. Patient TargetsNo targets recorded. Patient Instructions Encounter Date Encounter Id Patient Instructions Last Modified By Organization Details Last Modified Time 04/24/2023 [id number] BASIC INFORMATIO N Urinary tract infections(UTI) can [...] in your condition between 8am-10pm, [facility] at [phone] to help navigate your care. [email or web address] Not available 04/24/2023 12:27:00 Reason for Referral [...] Not Available Spr - H [place]me [address] [place], [address], 04/24/2023 12:56:37 04/24/20 23 04/24/2023 urina lysis , dipst ick Color bloody Not Available Spr - Home [address] [place], [address], 04/24/2023 12:56:37 04/24/20 23 04/24/2023 urina lysis , dipst ick Glucose (ref: neg) Neg Not Available Spr - Home [address] [place], [address], 04/24/2023 12:56:37 04/24/20 23 04/24/2023 urina lysis , dipst ick Bilirubin (ref: neg) Neg Not Available Spr - Home [address] [place], [address], 04/24/2023 12:56:37 04/24/20 23 04/24/2023 urina lysis , dipst ick Ketones (ref: neg) Neg Not Available [address] [place], [address], 04/24/2023 12:56:37 04/24/20 23 04/24/2023 urina lysis , dipst ick Specific [place] (ref: 1.005 - 1.030) 1.010 Not Available [address] [place], [address], 04/24/2023 12:56:37 04/24/20 23 04/24/2023 urina lysis , dipst ick Blood (ref: neg) +++ Not Available [address] [place], [address], 04/24/2023 12:56:37 04/24/20 23 04/24/2023 urina lysis , dipst ick pH (ref: 5.0-7.0) 5.0 Not Available [address] [place], [address], 04/24/2023 12:56:37 04/24/20 23 04/24/2023 urina lysis , dipst ick Protein (ref: neg) Neg Not Available [address] [place], [address], 04/24/2023 12:56:37 04/24/20 23 04/24/2023 urina lysis , dipst ick Urobilinogen (ref: 0.2-1) 0.2 Not Available [address] [place], [address], 04/24/2023 12:56:37 04/24/20 23 04/24/2023 urina lysis , dipst ick Nitrites (ref: neg) positi ve Not Available Spr - Home [address] [place], [address], 04/24/2023 12:56:37 04/24/20 23 04/24/2023 urina lysis , dipst ick Leukocytes (ref: neg) ++ Not Available Spr - Home [address] [place], [address], 04/24/2023 12:56:37 04/24/20 23 04/24/2023 urina lysis , dipst ick Location [facility], [address] [place] [address], [id number] Not Available Spr - Home [address] [place], [address], 04/24/2023 12:56:37 Result Notes None recorded. Procedures Surgical History Date Name Laterality Status Provider Name and Address Organization Details Recorded Time partial nephrectomy completed Caprice Ramos NP [address] [place], [address], [place] [facility] 04/24/2023 12:22:57 Cholecystectomy completed Belén Ramos NP [address] [place], [address], [place] [facility] 04/24/2023 12:23:11 Imaging Results None recorded. Procedure Notes None recorded. Medical Equipment None Reported. Allergies Allergen ID Allergen Name Allergen Category Reaction Reaction Severity Criticality Documentation Date Start Date Code Code System Note Provider Name and Address Organization Details Recorded Time 815898 Keflex medicatio n rash Not available low 04/24/2023 27065 7 RxNorm Belén Ramos NP [address] [place], [address], [place] [facility] 12:26:28 Medications Name Sig Start Date [...] rate Respiratory rate Body temperature Oxygen saturation Heart rate Oxygen saturation Respiratory rate Systolic And Diastolic Systolic And Diastolic Provider Name and Address Organization Details Last Updated DateTime 3 65 /min 16 /min 96.9 [degF] 94 % 62 /min 93 % 16 /min 158/76 mm[Hg] 146/68 mm[Hg] Not Available [facility] 12:57:21 Social History Question Answer Notes LastModified by Organizat ion Details LastModified Time Tobacco Smoking Status Never Smoker Belén Ramos NP [address] [place] [address], [address], [place] [facility] 04/24/2023 12:23:38 Do You Have An Advance Directive? Yes [email or web address] Information not available 04/24/2023 What Is Your Code Status? Full Code [email or web address] Information not available 04/24/2023 Within The Past 12 Months, Has It Happened That The Food You Bought Just Didn't Last And You Didn't Have Money To Get More. Never True [email or web address] Information not available 04/24/2023 Within The Past 12 Months, Have You Worried That Your Food Would Run Out Before You Got Money To Buy More. Never True Information not available 04/24/2023 Fall Risk: Do You Feel Unsteady When Standing Or Walking? Yes Information not available 04/24/2023 Excessive Alcohol Or Drug Use No [email or web address] Information not available 04/24/2023 Does This Patient Have A PCP? Yes [email or web address] Information not available 04/24/2023 Has The Patient Seen Their PCP In The Past 6 Months? Yes [email or web address] Information not available 04/24/2023 Is This Patient In Hospice? No [email or web address] Information not available 04/24/2023 ADL: Do You Need Help With Daily Activities Such As Bathing, Preparing Meals, Dressing, Or Cleaning? No [email or web address] Information not available 04/24/2023 Social Support: Do You Feel Safe? Yes [email or web address] Information not available 04/24/2023 We Know From Many Of Our Patients That Covering All Of Their Costs Can Be Difficult At Times. This Can Cause Stress And Impact Health. In The Past Year, Have You Been Unable To Get Any Of The Following When It Was Really Needed? No [email or web address] Information not available 04/24/2023 Has Tobacco Cessation Counseling Been Provided? No [email or web address] Information not available 04/24/2023 Sex: Unknown Functional Status Question Answer Note LastModified by Organizat ion Details LastModified Time Do you use any illicit or recreational drugs? No Information not available 04/24/2023 Do you or have you ever used any other forms of tobacco or nicotine? No [email or web address] Information not available 04/24/2023 What is your level of alcohol consumption? None Information not available 04/24/2023 Mental Status None recorded. Family History Relationship Description Onset Age of this Age Resolved Age Notes LastModified by Organization Details LastModified Time Father No current problems or disability Not available 04/24 12:23:28 Mother No current problems or disability Not available 04/24 12:23:29 Medical History Condition Response Hypertension Y A-fib Y Kidney Disease Gynecological HistoryNo gynecological history recorded. Obstetrics History GPAL:G 0 P 0 0 0 0 Past Encounters Encounter ID Performer Location Encounter Start Date Encounter Closed Date Diagnosis/Indication Diagnosis SNOMED-CT Code Diagnosis ICD10 Code Diagnosis IMO Codes Diagnosis Note [id number] Belén Ramos NP [facility] - HOME [address] [facility] [place] [address] 04/24/2023 12:03:49 05/22/2023 17:03:51 Acute cystitis 71494348 N30.01 Status of condition: Acute.Test ing/Result s: [...] to patient. All questions answered. Essential hypertension 82039633 I10 Status of condition: Chronic. Testing/Re sults: Discussion : Slightly elevated on second reading without aneurysm history. Continue to take current meds and f/u with cardiologi st. No c/o GARVEY, SOB, weakness. Plan, Medication Management & Follow-up recommenda tions: Chronic at rial fibrillation 036571502 I48.20 Status of condition: Chronic. Testing/Re sults: Discussion : Pt currently not in afib, is NSR with auscultati on. Discussed patients choice to stop eliquis with RN at cardio office, RN is going to speak with cardio to determine next course of action/ plan of care. Relayed message to patient and advised pt to order picker phone when cardiologi st calls or listen to messages. Plan, Medication Management & Follow-up recommenda tions: [id number] Belén Ramos NP [facility] - HOME [address] [facility] [address] 04/24/2023 12:19:40 04/25/2023 14:18:37 Health Concerns Section Related Observation LastModified by Organization Detai ls LastModified Time None Recorded Concern Status LastModified by Organization Details LastModified Time None Recorded Advance Directives Directive Y: Payers Insurance Date Sequence Insurance Name Policy Number Policy Guadalupe Covered Member ID Guadalupe Member ID Guarantor Name 04/25/2023 1 BCYULIA-ZAK (PPO) [id number] Rosie Guerrero [id number] Andra Burns 04/23/2023 1 *SELF PAY* Kathyate Yolanda [id number] Andra Veves 04/25/2023 1 *SELF PAY* [id number] Rosie Guerrero NEED MCR ID PRIMARY Andra [...] 53 Belén Ramos NP [address], [place], [address], [place] [facility] 04/24/2023 13:30:02 04/24/2023 text/html duplicate chart Belén Ramos NP [address] [place], [address], [place] [facility] 04/24/2023 15:13:38 OBGyn Episode No OBEpisode recorded.
== END 2025-09-03 13:15 | disposition home or self-care (01) ==
LOC: HO.HCS 12:51
PROVIDERS: PCP Internal Medicine; Visit Provider Internal Medicine Cardiovascular Disease
DX: J96.11 Chronic respiratory failure with hypoxia (principal); I50.32 Chronic diastolic (congestive) heart failure; I48.0 Paroxysmal atrial fibrillation
CPT/HCPCS: 93010; 99214; G2211

== ENCOUNTER → 2025-09-03 12:50 | Outpatient (BNVA) | payer MEDICARE, SELFPAY | PROVIDERS: PCP Internal Medicine; Visit Provider Internal Medicine Cardiovascular Disease | DX: J96.11 Chronic respiratory failure with hypoxia (principal); I50.32 Chronic diastolic (congestive) heart failure; I48.0 Paroxysmal atrial fibrillation; I45.10 Unspecified right bundle-branch block | CPT/HCPCS: 93005; 99212 ==

== ENCOUNTER 2025-10-01 15:00 | Outpatient (REF) | payer MEDICARE, SELFPAY ==
--- NOTE | ~2025-10-01 | XR_ITS ---
EXAMINATION: XR CHEST CLINICAL INFORMATION: R06.02 - Shortness of breath COMPARISON: Radiographs on June 27, 2025 TECHNIQUE: 2 views of the chest were obtained. FINDINGS: Lungs: Improved lung aeration. No focal consolidation or evidence of pulmonary edema. Pleura: No pleural effusion or pneumothorax. Heart/Mediastinum: Cardiomediastinal silhouette is within normal limits. Bones: No acute findings. XR/XR chest 2V IMPRESSION: No acute cardiopulmonary process. Electronically signed by: Dennise Cardona MD 10/01/2025 03:44 PM EST
--- OUTSIDE RECORDS SUMMARY | 2025-10-01 19:08 | XMS_ITS | Data Portability ---
Author Organization [place] [facility], [facility] Address [address] [place] [address] Care Team Providers Care Icu Clerk Name Role Phone BISI VALENZUELA Primary Care [...] New to provider and DH. Spoke with facilities locator office at 1300 regarding patient. Pt with GFR of 56 on 04/09/23 Vital Signs: 96.9 F ear (36.06 C) 65 62 158 / 76 [id number] / 68 Abnormal repeat 16 94 % [...] after care of this patient according to [facility]'s infection prevention protocols. [email or web address] Not available 04/24/2023 13:19:05 Plan of Treatment Reminders Order Date Submit Date Provider Last Modified By Organization Details Last Modified Time Details Appointments None recorded. Lab urinalysis , dipstick 2022 023 [id number] Spr - Home, [address], [place], [address], 13:29:00 culture, urine 2022 023 [facility] (Centralized Electronic Ordering - All Locations), Patient Can Go To The Location Of Their Choice, [address] 09:21:13 Referral None recorded. Procedures None recorded. Surgeries None recorded. Imaging None recorded. Medication Orders None recorded. Patient TargetsNo targets recorded. Patient Instructions Encounter Date Encounter Id Patient Instructions Last Modified By Organization Details Last Modified Time 04/24/2023 [id number] BASIC INFORMATIO N Urinary tract infections(UTI) can [...] in your condition between 8am-10pm, [facility] at [phone] to help navigate your care. Not available 04/24/2023 12:27:00 Reason for Referral [...] Not Available Spr - H ome [address] [place], [address], 04/24/2023 12:56:37 04/24/20 23 04/24/2023 urina lysis , dipst ick Color bloody Not Available Spr - Home [address] [place], [address], 04/24/2023 12:56:37 04/24/20 23 04/24/2023 urina lysis , dipst ick Glucose (ref: neg) Neg Not Available Spr - Home [address] [place], [address], 04/24/2023 12:56:37 04/24/20 23 04/24/2023 urina lysis , dipst ick Bilirubin (ref: neg) Neg Not Available Spr - Home [address] [place], [address], 04/24/2023 12:56:37 04/24/20 23 04/24/2023 urina lysis , dipst ick Ketones (ref: neg) Neg Not Available [place] [address] [place], [address], 04/24/2023 12:56:37 04/24/20 23 04/24/2023 urina lysis , dipst ick Specific [place] (ref: 1.005 - 1.030) 1.010 Not Available [address] [place], [address], 04/24/2023 12:56:37 04/24/20 23 04/24/2023 urina lysis , dipst ick Blood (ref: neg) +++ Not Available [place] [address] [place], [address], 04/24/2023 12:56:37 04/24/20 23 04/24/2023 urina lysis , dipst ick pH (ref: 5.0-7.0) 5.0 Not Available [address] [place], [address], 04/24/2023 12:56:37 04/24/20 23 04/24/2023 urina lysis , dipst ick Protein (ref: neg) Neg Not Available [address] [place], [address], 04/24/2023 12:56:37 04/24/20 23 04/24/2023 urina lysis , dipst ick Urobilinogen (ref: 0.2-1) 0.2 Not Available [place] [address] [place], [address], 04/24/2023 12:56:37 04/24/20 23 04/24/2023 urina lysis , dipst ick Nitrites (ref: neg) positi ve Not Available Spr - Home [address] [place], [address], 04/24/2023 12:56:37 04/24/20 23 04/24/2023 urina lysis , dipst ick Leukocytes (ref: neg) ++ Not Available Spr - Home [address] [place], [address], 04/24/2023 12:56:37 04/24/20 23 04/24/2023 urina lysis , dipst ick Location [facility], [facility], [address] [place] [address], [id number] Not Available Spr - Home [address] [place], [address], 04/24/2023 12:56:37 Result Notes None recorded. Procedures Surgical History Date Name Laterality Status Provider Name and Address Organization Details Recorded Time partial nephrectomy completed Caprice Ramos NP [address] [place], [address], [place] [facility] 04/24/2023 12:22:57 Cholecystectomy completed Belén Ramos NP [address] [place], [address], [place] [facility] 04/24/2023 12:23:11 Imaging Results None recorded. Procedure Notes None recorded. Medical Equipment None Reported. Allergies Allergen ID Allergen Name Allergen Category Reaction Reaction Severity Criticality Documentation Date Start Date Code Code System Note Provider Name and Address Organization Details Recorded Time 071404 Keflex medicatio n rash Not available low 04/24/2023 57833 7 RxNorm Belén Ramos NP [address] [place], [address], [place] [facility] 12:26:28 Medications Name Sig Start Date Stop [...] /min 158/76 mm[Hg] 146/68 mm[Hg] Not Available [facility] 12:57:21 Social History Question Answer Notes LastModified by Organizat ion Details LastModified Time Tobacco Smoking Status Never Smoker Belén Ramos NP [address] [place] [address], [address], [place] [facility] 04/24/2023 12:23:38 Do You Have An Advance Directive? Yes [email or web address] Information not available 04/24/2023 What Is Your Code Status? Full Code [email or web address] Information not available 04/24/2023 Within The Past 12 Months, Has It Happened That The Food You Bought Just Didn't Last And You Didn't Have Money To Get More. Never True [email or web address] Information not available 04/24/2023 Within The Past 12 Months, Have You Worried That Your Food Would Run Out Before You Got Money To Buy More. Never True [email or web address] Information not available 04/24/2023 Fall Risk: Do You Feel Unsteady When Standing Or Walking? Yes Information not available 04/24/2023 Excessive Alcohol Or Drug Use No [email or web address] Information not available 04/24/2023 Does This Patient Have A PCP? Yes Information not available 04/24/2023 Has The Patient Seen Their PCP In The Past 6 Months? Yes Information not available 04/24/2023 Is This Patient In Hospice? No Information not available 04/24/2023 ADL: Do You Need Help With Daily Activities Such As Bathing, Preparing Meals, Dressing, Or Cleaning? No [email or web address] Information not available 04/24/2023 Social Support: Do You Feel Safe? Yes Information not available 04/24/2023 We Know From Many Of Our Patients That Covering All Of Their Costs Can Be Difficult At Times. This Can Cause Stress And Impact Health. In The Past Year, Have You Been Unable To Get Any Of The Following When It Was Really Needed? No [email or web address] Information not available 04/24/2023 Has Tobacco Cessation Counseling Been Provided? No [email or web address] Information not available 04/24/2023 Sex: Unknown Functional Status Question Answer Note LastModified by Organizat ion Details LastModified Time Do you use any illicit or recreational drugs? No [email or web address] Information not available 04/24/2023 Do you or have you ever used any other forms of tobacco or nicotine? No [email or web address] Information not available 04/24/2023 What is your level of alcohol consumption? None [email or web address] Information not available 04/24/2023 Mental Status None recorded. Family History Relationship Description Onset Age of this Age Resolved Age Notes LastModified by Organization Details LastModified Time Father No current problems or disability [email or web address] Not available 04/24 12:23:28 Mother No current problems or disability [email or web address] Not available 04/24 12:23:29 Medical History Condition Response A-fib Y Kidney Disease Hypertension Y Gynecological HistoryNo gynecological history recorded. Obstetrics History GPAL:G 0 P 0 0 0 0 Past Encounters Encounter ID Performer Location Encounter Start Date Encounter Closed Date Diagnosis/Indication Diagnosis SNOMED-CT Code Diagnosis ICD10 Code Diagnosis IMO Codes Diagnosis Note [id number] Belén Ramos NP [facility] - HOME [address] [facility] [place] [address] 04/24/2023 12:03:49 05/22/2023 17:03:51 Acute cystitis 57675879 N30.01 Status of condition: Acute.Test ing/Result s: [...] to patient. All questions answered. Essential hypertension 53428282 I10 Status of condition: Chronic. Testing/Re sults: Discussion : Slightly elevated on second reading without aneurysm history. Continue to take current meds and f/u with cardiologi st. No c/o GARVEY, SOB, weakness. Plan, Medication Management & Follow-up recommenda tions: Chronic at rial fibrillation 294690257 I48.20 Status of condition: Chronic. Testing/Re sults: Discussion : Pt currently not in afib, is NSR with auscultati on. Discussed patients choice to stop eliquis with RN at cardio office, RN is going to speak with cardio to determine next course of action/ plan of care. Relayed message to patient and advised pt to sampler pickup phone when cardiologi st calls or listen to messages. Plan, Medication Management & Follow-up recommenda tions: [id number] Belén Ramos NP [facility] - HOME [address] [place] [address] 04/24/2023 12:19:40 04/25/2023 14:18:37 Health Concerns Section Related Observation LastModified by Organization Detai ls LastModified Time None Recorded Concern Status LastModified by Organization Details LastModified Time None Recorded Advance Directives Directive Y: Payers Insurance Date Sequence Insurance Name Policy Number Policy Gaudalupe Covered Member ID Guadalupe Member ID Guarantor Name 04/25/2023 1 BCYULIA-ZAK (PPO) [id number] Rosie Guerrero [id number] Andra Burns 04/23/2023 1 *SELF PAY* Kathyate Yolanda [id number] Andra Veves 04/25/2023 1 *SELF PAY* [id number] Rosie Guerrero NEED MCR ID PRIMARY Andra [...] 53 Belén Ramos NP [address], [place], [address], [place] [facility] 04/24/2023 13:30:02 04/24/2023 text/html duplicate chart Belén Ramos NP [address] [place], [address], [place] [facility] 04/24/2023 15:13:38 OBGyn Episode No OBEpisode recorded.
== END 2025-10-01 15:01 | disposition home or self-care (01) ==
LOC: HO.XRAY 15:00
PROVIDERS: Visit Provider Hospitalist
DX: R06.02 Shortness of breath (principal); J98.4 Other disorders of lung
CPT/HCPCS: 71046

== ENCOUNTER → 2025-10-01 15:28 | Outpatient (BNV) | payer MEDICARE, SELFPAY | PROVIDERS: Visit Provider Radiology Body Imaging | DX: R06.02 Shortness of breath (principal) | CPT/HCPCS: 71046 ==

== ENCOUNTER 2025-10-02 13:33 | Outpatient (AMB) | payer MEDICARE, SELFPAY ==
[2025-10-02 13:36] VITALS: BP 118/62; PULSE 75; O2SAT 96; BMI 25.2
--- NOTE | 2025-10-02 13:36 | A.OFFVIS_ITS ---
Vital Signs 10/02/25 13:36 Height 5 ft 3 in Weight 142 lb 3.17 oz BMI 25.2 BP 118/62 Blood Pressure Location Lt brachial Position Sitting Pulse 75 Pulse Source Pulse Oximeter Pulse Oximetry (%) 96 Oxygen Delivery Method Nasal Cannula Oxygen Flow Rate 2 Intake Visit Reasons: Amiodarone pneumonitis Regional Sales Engineer Required: Yes Regional Sales Engineer Services: Regional Sales Engineer Offered & Declined Regional Sales Engineer Name: Santiago (son) will interpret Special Services Director: Special Services Director offered & declined Accompanied by: Self / Same As Patient Allergies amoxicillin Allergy (Intermediate, Verified 10/02/25 13:40) rash cephalexin Allergy (Intermediate, Verified 10/02/25 13:40) Rash amiodarone Adverse Reaction (Severe, Verified 10/02/25 13:40) Pulmonary toxicity metformin Adverse Reaction (Intermediate, Verified 10/02/25 13:40) Gastrointestinal Upset HPI Comments Details: The patient is an 85-year-old female with a PMH significant for paroxysmal AFib on Eliquis, HTN, and HLD who is being directly admitted to the hospital from Cardiology for Tikosyn loading and monitoring. Pt follows with Dr. Tucker in Cardiology who previously had rhythm control on amiodarone, which was recently stopped due to concerns for pulmonary amiodarone toxicity. Since then pt has BNP has been steadily rising ad concern is for developing progressive heart failure. After consultation, pt wished to pursue rhythm control with Tikosyn which would require a 3 day hospital stay. Upon presentation to the hospital pt was noted to be hypoxic at 83%, and labs were significant for elevated BNP as well as hyperkalemia of 5.6. EKG with QTc 508. Pt herself had no acute medical complaints, denies significant SOB or difficulty breathing at rest. No lightheadedness or dizziness. Denies shortness or breath or difficulty breathing. No fever, chills, nausea, vomiting. Pt is admitted to the hospital for acute hypoxic respiratory failure in the setting of CHF exacerbation, as well as for Tikosyn loading and monitoring. After several days in the hospital with diuresis the patient has still continued to have significant hypoxia. Therefore she did undergo a CT scan of the chest that I personally reviewed. She appears to have mosaic pattern consistent with areas of ground-glass opacities. She also has other nodular inflammatory changes. Is felt to be related to the amiodarone. At this point will go ahead and request additional blood work. Does not have significant procedures. Does not have any other systemic inflammatory symptoms. Will be reasonable to start her on Solu-Medrol to decrease the inflammation of the airways to try to help her with her gas exchange and ultimately will have a prednisone taper. 07/23/2025 the patient is here for hospital follow-up visit. Overall the patient is feeling better. She is using her oxygen. She is able to take it off at times for periods of time. She does have a pulse oximeter at home. She continues to take the prednisone although she is down to 10 mg. Her blood sugars have been elevated so therefore she has been doing ice sliding scale insulin. Will continue to wean off the prednisone at this time. I did review her CT scan of the chest back from June 2025 and also compared to the CAT scan from 2023. She does have significant mosaic pattern. 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 She is no longer taking amiodarone which is reassuring. Will try to wean her off completely from the prednisone specially with the diabetes. Hopefully she responds well to the inhaled corticosteroid combination inhaler, Wixela. We did instruct her how to use it correctly. The patient will have a repeat x-ray and return in 2-3 months. If she has any issues prior to this she can always call for an earlier assessment. In the meantime we did walking oximetry the patient did qualify for portable oxygen concentrator with activity at 2 L pulse. We will send a revision oxygen order to [facility] in order for her to get a POC for better portability outside of the home and she will continue to use the oxygen via concentrator in the home and while sleeping. 10/02/2025 the patient is here for pulmonary follow-up visit. The patient continues to have issues with hypoxia. She is relying on her oxygen. She does not like to realize the oxygen. She can not take it off for a little bit while she is resting in with company. She is able to maintain a pulse ox around 90% to 91% at rest. We did talk about deep breathing exercises. She is pretty restrictive when taking a deep breath. I did provide her with the incentive spirometer she is going to work on that 4 times a day to try to expand her lungs. When she did use it her oxygen did improve. In addition to that she could not tolerate the Wixela because of the powder inhaler. Will go ahead and send her a an Advair HFA with a spacer in her nursing staff did teach her how to use it to see if we can help her open up those airways and improve the mosaic pattern suggesting small airways disease. In addition to that we did look at her CT scan from August demonstrating pulmonary nodules interstitial changes mosaic pattern. Will plan to repeat the CAT scan to make sure the nodules are stable to reassess the interstitial changes. She continues on the prednisone. Will cut it down to 7.5 mg daily that she will take daily and will continue with the inhaler until the CAT scan follow-up. She will continue using the oxygen as prescribed. And will follow-up in 3 months. If any issues arise she can always call for further recommendations. [facility] Medical History (Updated 09/03/25 @ 13:17 by Arturo Tucker MD) Paroxysmal atrial fibrillation (HFpEF) heart failure with preserved ejection fraction Atrial fibrillation Pulmonary nodules Chronic respiratory failure with hypoxia Pneumonitis Persistent atrial fibrillation Atrial flutter New onset a-fib Obesity Hypertension Surgical History History of nephrectomy, left Hx of cholecystectomy Family History Mother No problems noted. Father No problems noted. Social History Household Members: None Housing: House Do you presently have visiting nurse or other home services: No Alcohol intake: never Comment: Refuses bed alarm Patient Tobacco Use Status: Never used Tobacco e-Cigarette/Vaping Use: Never Used Second Hand Smoke Exposure: No service: No Current occupational status: retired Cognitive needs: No Hearing needs: Yes Vision needs: No Review of Systems Const Denies chills, Denies fatigue, Denies fever(s), Denies frequent falls, Denies weakness, Denies weight gain and Denies weight loss ENT Denies dizziness Card Denies chest pain, Denies leg edema, Denies lightheadedness, Denies palpitations, Denies dyspnea, Reports dyspnea on exertion, Denies orthopnea and Denies other (loss of consciousness) Resp Reports cough, Denies dyspnea and Reports dyspnea on exertion GI Denies hematochezia and Denies change in stool character Musc Denies abnormal gait, Denies muscle weakness, Denies numbness, Denies radiating pain into limb and Denies tingling Neuro Denies abnormal gait, Denies dizziness, Denies frequent falls, Denies numbness, Denies tingling and Denies weakness Endo Denies fatigue and Denies palpitations Physical Exam Vital Signs: Last Vital Signs Pulse 75 10/02/25 13:36 BP 118/62 10/02/25 13:36 Pulse Ox 96 10/02/25 13:36 Oxygen Delivery Method Nasal Cannula 10/02/25 13:36 Oxygen Flow Rate 2 10/02/25 13:36 BMI result Body Mass Index 25.2 Last Vital Signs Temp 97.7 F 06/26/25 11:52 Pulse 65 06/26/25 11:52 Resp 18 06/26/25 11:52 BP 163/72 H 06/26/25 11:52 Pulse Ox 92 06/26/25 11:52 O2 Del Method Room Air 06/26/25 11:52 O2 Flow Rate 2 06/26/25 03:38 BMI result Body Mass Index 25.6 Const General: cooperative, comfortable, no acute distress, well developed, alert, awake and Physically active Nutritional Appearance: average body habitus Orientation/consciousness: patient oriented x3 Limitations: no limitations HEENT Head: Yes normocephalic and Yes atraumatic Neck Neck: Yes trachea midline, Yes supple and Yes no JVD Chest Chest palpation & inspection: normal inspection of the chest Resp Effort & Inspection: normal respiratory effort Auscultation: no crackles Cardio Rate: regular rate Rhythm: regular rhythm Heart sounds: S1 normal heart sound present and S2 normal heart sound present GI Auscultation: normal bowel sounds Skin General skin exam: no rashes or lesions noted Neuro General: patient oriented x3 and no focal motor deficits Extrem General: Yes no clubbing, cyanosis or edema Psych Appearance: grossly normal Assessment & Plan Assessment & Plan (1) SOB (shortness of breath) on exertion: Code(s): R06.02 - Shortness of breath Category: Medical (2) Pneumonitis: Comment: on 2L Oxygen Code(s): J98.4 - Other disorders of lung Category: Medical (3) Chronic respiratory failure with hypoxia: Code(s): J96.11 - Chronic respiratory failure with hypoxia Category: Medical (4) Pulmonary nodules: Code(s): R91.8 - Other nonspecific abnormal finding of lung field Category: Medical Plan continue oxygen: POC 2L/pulse with activity for outside for better portability and 2L/min while in the home Prednisone taper 10mg->7.5mg daily start Advair ( did not tolerate the powdered inhalers Repeat CT chest F/U 2-3 months Orders: Orders CT chest wo IV con 6 Weeks J96.11 - Chronic respiratory failure with hypoxia, J98.4 - Other disorders of lung, R91.8 - Other nonspecific abnormal finding of lung field Medications: New prednisone 7.5 mg (3 x 2.5 mg) PO DAILY 90 tabs 5RF 30 days fluticasone propion-salmeterol 115-21 mcg/actuation (Advair HFA) 2 puffs inhalation Q12H 12 grams 11RF 30 days Coding Level of Care Code Est Pt Level 4 (07561) Diagnoses SOB (shortness of breath) on exertion R06.02 Pneumonitis J98.4 Chronic respiratory failure with hypoxia J96.11 Pulmonary nodules R91.8 Time Spent (min) 18
== END 2025-10-02 14:20 | disposition home or self-care (01) ==
LOC: HO.HPS 13:34
PROVIDERS: PCP Internal Medicine; Visit Provider Hospitalist
DX: R06.02 Shortness of breath (principal); J98.4 Other disorders of lung; J96.11 Chronic respiratory failure with hypoxia; R91.8 Other nonspecific abnormal finding of lung field
CPT/HCPCS: 99214

== ENCOUNTER → 2025-10-02 13:33 | Outpatient (BNVA) | payer MEDICARE, SELFPAY | PROVIDERS: PCP Internal Medicine; Visit Provider Hospitalist | DX: J96.11 Chronic respiratory failure with hypoxia (principal); J98.4 Other disorders of lung; R91.8 Other nonspecific abnormal finding of lung field; Z99.81 Dependence on supplemental oxygen; I48.0 Paroxysmal atrial fibrillation; I10 Essential (primary) hypertension | CPT/HCPCS: 99212 ==